=== PATIENT | female | born 1960 | race Caucasian/White ===

== ENCOUNTER 2016-04-29 21:01 | Emergency (ER) | payer MEDICARE, MEDICAID ==
--- NOTE | 2016-04-29 21:48 | ER Document Report ---
ED Medical Screen (RME) - General Stated Complaint: DIFFICULTY BREATHING/CONFUSED Mode of Arrival: Ambulatory Information source: Patient Notes: 55 y/o F presents to ED c/o worsening sob with associated dizzines, nausea, generalized wekness, and intermittent confusion over the last 2 days. I have greeted and performed a rapid initial assessment of this patient. A comprehensive ED assessment and evaluation of the patient, analysis of test results and completion of the medical decision making process will be conducted by additional ED providers. TRAVEL OUTSIDE OF THE [place] IN LAST 30 DAYS: No - Related Data Allergies/Adverse Reactions: morphine Allergy (Severe, Verified 04/29/16 21:28) Hallucinations clindamycin [Clindamycin] Allergy (Verified 04/29/16 21:28) Past Medical History - Social History Frequency of alcohol use: None Drug Abuse: None - Past Medical History Cardiac Medical History: Reports: Hx Heart Attack, Hx Hypercholesterolemia Pulmonary Medical History: Reports: Hx Asthma, Hx COPD, Hx Sleep Apnea Denies: Hx Tuberculosis Neurological Medical History: Denies: Hx Seizures Endocrine Medical History: Reports: Hx Diabetes Mellitus Type 2 Renal/ Medical History: Denies: Hx Peritoneal Dialysis Musculoskeltal Medical History: Reports Hx Arthritis, Reports Hx Fibromyalgia, Reports Hx Musculoskeletal Deformity, Reports Hx Musculoskeletal Trauma Psychiatric Medical History: Reports: Hx Anxiety, Hx Bipolar Disorder, Hx Depression Past Surgical History: Reports: Hx Orthopedic Surgery - shoulder replacement, BL., Hx Tubal Ligation. Denies: Hx Hysterectomy, Hx Pacemaker - Immunizations Immunizations up to date: Yes Hx Diphtheria, Pertussis, Tetanus Vaccination: Yes Physical Exam - Vital signs Vitals: Temp Pulse Resp BP 98.0 F 73 20 114/62 04/29/16 21:25 04/29/16 21:25 04/29/16 21:25 04/29/16 21:25 - General General appearance: Alert In distress: None - Respiratory Respiratory status: No respiratory distress Breath sounds: Normal Course - Vital Signs Vital signs: Temp Pulse Resp BP Pulse Ox 98.0 F 73 20 114/62 04/29/16 21:25 04/29/16 21:25 04/29/16 21:25 04/29/16 21:25
[2016-04-29 23:30] LABS: ABSOLUTE BASOPHILS # (AUTO) 0.1 10^3/uL (0.0-0.2); ABSOLUTE EOSINOPHILS # (AUTO) 0.4 10^3/uL (0.0-0.6); ABSOLUTE LYMPHOCYTES (AUTO) 1.9 10^3/uL (0.5-4.7); ABSOLUTE MONOCYTES (AUTO) 0.3 10^3/uL (0.1-1.4); BASOPHILS % (AUTO) 1.6 % (0-2); EOSINOPHILS % (AUTO) 8.8 % (0-6); HEMOGLOBIN 10.3 g/dL (12.0-15.5); HGB HCT DIFFERENCE -0.1; LYMPHOCYTES % (AUTO) 40.4 % (13-45); MEAN CORPUSCULAR HEMOGLOBIN 31.2 pg (27.0-33.4); MEAN CORPUSCULAR HGB CONC 33.2 g/dL (32.0-36.0); MEAN CORPUSCULAR VOLUME 94 fl (80-97); RED BLOOD COUNT 3.31 10^6/uL (3.72-5.28); SEGMENTED NEUTROPHILS % (AUTO) 42.2 % (42-78); WHITE BLOOD COUNT 4.7 10^3/uL (4.0-10.5)
[2016-04-29 23:49] LABS: ALANINE AMINOTRANSFERASE 24 U/L (9-52); ALBUMIN 4.4 g/dL (3.5-5.0); ALKALINE PHOSPHATASE 97 U/L (38-126); ANION GAP 8 (5-19); ASPARTATE AMINO TRANSFERASE 24 U/L (14-36); BILIRUBIN,TOTAL 0.5 mg/dL (0.2-1.3); BLOOD UREA NITROGEN 27 mg/dL (7-20); CALCIUM 9.9 mg/dL (8.4-10.2); CARBON DIOXIDE 36 mmol/L (22-30); CHLORIDE 98 mmol/L (98-107); CREATININE RESULT 1.07 mg/dL (0.52-1.25); GLUCOSE 91 mg/dL (75-110); POTASSIUM 4.9 mmol/L (3.6-5.0); SODIUM 141.9 mmol/L (137-145); TOTAL PROTEIN 7.7 g/dL (6.3-8.2)
[2016-04-29 23:51] LABS: APPEARANCE,URINE CLEAR; BILIRUBIN,URINE NEGATIVE (NEGATIVE); GLUCOSE, URINE NEGATIVE (NEGATIVE); KETONES,URINE NEGATIVE (NEGATIVE); LEUKOCYTE ESTERASE,URINE TRACE (NEGATIVE); NITRITE,URINE NEGATIVE (NEGATIVE); PROTEIN,URINE NEGATIVE (NEGATIVE); URINE SPECIFIC GRAVITY 1.031; UROBILINOGEN,URINE NEGATIVE mg/dL (<2.0)
--- NOTE | 2016-04-30 00:12 | EKG REPORT ---
SEVERITY:- NORMAL ECG - SINUS RHYTHM : Confirmed by: Sabiha Rene 30-Apr-2016 00:11:43
--- NOTE | 2016-04-30 02:50 | ER Document Report ---
ED Respiratory Problem - General Chief Complaint: Breathing Difficulty Stated Complaint: DIFFICULTY BREATHING/CONFUSED Time seen by provider: 02:35 Mode of Arrival: Ambulatory Information source: Patient Notes: 55-year-old female presents to ED for difficulty breathing shortness of breath and confusion. She states she's had worsening shortness of breath for the last 4 days and she has an appointment with the lung doctor today at 3 PM but states she cannot wait that long she also has a history of dizziness nausea and weakness with intermittent confusion. She has a appointment with her primary doctor tomorrow at 2:30 she states none of these symptoms are new but she just couldn't wait to get seen by the doctor. TRAVEL OUTSIDE OF THE [place] IN LAST 30 DAYS: No - HPI Patient complains to provider of: COPD, Cough Onset: Other - Patient states these symptoms have been progressive for the last for several weeks worse for the last 4 days. Duration: Continuous Quality of pain: Achy, Throbbing, Other - Chronic pain fibromyalgia on fentanyl and Percocet Severity: Moderate Pain Level: 4 Context: Hx COPD, Other Short of Breath: Mild Cough: Nonproductive Sputum amount: None Associated symptoms: Cough, Other - Dizziness nausea and generalized weakness and intermittent confusion Similar symptoms previously: Yes Recently seen / treated by doctor: Yes - Related Data Allergies/Adverse Reactions: morphine Allergy (Severe, Verified 04/29/16 21:28) Hallucinations clindamycin [Clindamycin] Allergy (Verified 04/29/16 21:28) Past Medical History - General Information source: Patient - Social History Smoking Status: Former Smoker Cigarette use (# per day): No Chew tobacco use (# tins/day): No Smoking Education Provided: No Frequency of alcohol use: None Drug Abuse: None Lives with: Family Family History: Reviewed & Not Pertinent Patient has suicidal ideation: No Patient has homicidal ideation: No - Past Medical History Cardiac Medical History: Reports: Hx Heart Attack, Hx Hypercholesterolemia Pulmonary Medical History: Reports: Hx Asthma, Hx COPD, Hx Sleep Apnea, Other - History of broken ribs in 1990 Endocrine Medical History: Reports: Hx Diabetes Mellitus Type 2 Renal/ Medical History: Reports: None Malignancy Medical History: Reports: None Musculoskeltal Medical History: Reports Hx Arthritis, Reports Hx Fibromyalgia, Reports Hx Musculoskeletal Deformity, Reports Hx Musculoskeletal Trauma Skin Medical History: Reports None Psychiatric Medical History: Reports: Hx Anxiety, Hx Bipolar Disorder, Hx Depression Traumatic Medical History: Reports: None Infectious Medical History: Reports: None Past Surgical History: Reports: Hx Orthopedic Surgery - shoulder bilateral, Hx Tubal Ligation, Other - Vagal nerve stimulator - Immunizations Immunizations up to date: Yes Hx Diphtheria, Pertussis, Tetanus Vaccination: Yes Review of Systems - Review of Systems Constitutional: No symptoms reported Cardiovascular: Dizziness Respiratory: Cough Gastrointestinal: Nausea Genitourinary: No symptoms reported Female Genitourinary: No symptoms reported Musculoskeletal: Back pain, Muscle pain Skin: No symptoms reported Hematologic/Lymphatic: No symptoms reported Neurological/Psychological: Confusion - States intermittent confusion, Weakness Physical Exam - Vital signs Vitals: Temp Pulse Resp BP Pulse Ox 98.0 F 73 20 114/62 98 04/29/16 21:25 04/29/16 21:25 04/29/16 21:25 04/29/16 21:25 04/29/16 21:25 Interpretation: Normal - General General appearance: Appears well, Alert - HEENT Head: Normocephalic, Atraumatic Eyes: Normal Pupils: PERRL - Respiratory Respiratory status: No respiratory distress Chest status: Nontender Breath sounds: Normal Chest palpation: Normal - Cardiovascular Rhythm: Regular Heart sounds: Normal auscultation Murmur: No - Abdominal Inspection: Normal Distension: No distension Bowel sounds: Normal Tenderness: Nontender Organomegaly: No organomegaly - Back Back: Normal, Nontender - Extremities General upper extremity: Normal inspection, Nontender, Normal color, Normal ROM , Normal temperature General lower extremity: Normal inspection, Nontender, Normal color, Normal ROM , Normal temperature, Normal weight bearing. No: Marychuy's sign - Neurological Neuro grossly intact: Yes Cognition: Normal Orientation: AAOx4 [place] Coma Scale Eye Opening: Spontaneous [place] Coma Scale Verbal: Oriented [place] Coma Scale Motor: Obeys Commands [place] Coma Scale Total: 15 Speech: Normal Motor strength normal: LUE, RUE, LLE, RLE Sensory: Normal - Psychological Associated symptoms: Normal affect, Normal mood - Skin Skin Temperature: Warm Skin Moisture: Dry Skin Color: Normal Course - Re-evaluation Re-evalutation: 04/30/16 07:43 Labs x-ray and EKG discussed with patient and family patient has been stable O2 sat of 96-97 on 2 L during her stay here patient is a COPD patient who states she is on 4 L at home. Patient states she has a follow-up appointment with her lung doctor today and her primary doctor tomorrow. - Vital Signs Vital signs: Temp Pulse Resp BP Pulse Ox 98.5 F 73 18 117/49 L 97 04/30/16 05:55 04/29/16 21:25 04/30/16 05:50 04/30/16 05:50 04/30/16 05:50 - Laboratory Result Diagrams: 04/29/16 23:02 04/29/16 23:02 Laboratory results interpreted by me: 04/29/16 04/29/16 04/29/16 23:02 23:02 23:02 RBC 3.31 L Hgb 10.3 L Hct 31.0 L Eosinophils % 8.8 H Carbon Dioxide 36 H BUN 27 H Est GFR (Non-Af Amer) 54 L Ur Leukocyte Esterase TRACE H - Diagnostic Test Radiology reviewed: Image reviewed, Reports reviewed Discharge - Discharge Clinical Impression: Dizziness, Nausea Upper respiratory infection Qualifiers: URI type: unspecified URI Qualified Code(s): J06.9 - Acute upper respiratory infection, unspecified Chronic pain Qualifiers: Chronic pain type: other chronic pain Qualified Code(s): G89.29 - Other chronic pain Condition: Stable Disposition: HOME, SELF-CARE Additional Instructions: UPPER RESPIRATORY ILLNESS: You have a viral infection of the respiratory passages -- a "cold." This common infection causes nasal congestion, drainage, and often sore throat and cough. It is highly contagious. The disease usually lasts about 10 to 14 days. There is no "cure" for the viral infection -- it must run its course. If there is a complication, such as bacterial infection in the nose, sinuses, middle ear, or bronchial tubes, antibiotics may be required. The antibiotics won't affect the virus. Drink plenty of fluids. A humidifier may help. An expectorant medication or decongestant may make you more comfortable. Use acetaminophen or ibuprofen for fever or aches. See the doctor if fever persists over two days, if there is any significant worsening of your symptoms, or if you simply fail to improve as expected. Weakness We did not find a definite cause for your weakness. This may require further medical tests. Weakness can be caused by infection, physical exhaustion , rapid weight loss, dehydration, or medicine side effects. Diseases of the muscles, heart, nerves, and blood vessels can make you weak. Sometimes the problem is simply depression or lack of exercise. You should get plenty of rest. Unless the doctor tells you otherwise, it's usually best to add short periods of regular mild exercise. Eat a nutritious diet with multiple small, low-sugar meals. If symptoms continue, additional medical evaluation will be necessary. Be sure to follow up as instructed. If you become very dizzy, nauseated, or feel like you're going to faint, lie down right away. Wait until the symptoms have passed before you get up again. Stand up slowly. Call the doctor or return if you develop chest pain, abdominal pain, severe headache, irregular heartbeat or very fast pulse, confusion, vision problems, fever, muscular pain, or any other new symptom. Nausea or Vomiting, Nonspecific Vomiting (or nausea without vomiting) can be caused by many different problems. Of course, it can mean that something's wrong with the stomach, such as "stomach flu," ulcers, or inflammation. But it can also be a symptom of a problem that has nothing to do with the stomach or intestines. Vomiting is common with severe headaches, earaches, and tonsillitis. We see it with pneumonia or heart attacks. Drugs can cause nausea. Many abdominal problems cause vomiting; for example, gallstones, kidney stones, pancreatitis, and intestinal obstruction (blocked bowels). In most cases, curing the vomiting depends on fixing the problem that caused it. For temporary relief, we may use an anti-nausea medicine. For home use, we can prescribe suppositories, chewable pills, pills that dissolve in the mouth, or liquid anti-nausea drugs. If the vomiting seems to be caused by a problem in the stomach, acid-suppressing drugs may be prescribed as well. It's important to avoid dehydration. Sip clear liquids. Take increasing amounts of fluid over the first 24 hours. Then start small amounts of bland foods (such as dry toast, applesauce, mashed potato). Avoid aspirin, tobacco, and alcohol. Gradually resume your usual diet. If the vomiting worsens, if the problem that's making you vomit worsens, or if there's evidence of bleeding in the stomach (such as black, tarry stool, bloody or black vomit, or lightheadedness), you should return immediately. Call your doctor if you aren't improved in 24 to 36 hours. COUGH-SUPPRESSANT & EXPECTORANT MEDICATION: You are to use a cough medication as needed for relief of symptoms. This medicine is a combination of an expectorant (to make the mucous thinner and more easily "coughed up") and a cough suppressant (to reduce the frequency of coughing). The cough-suppressant medicine is related to narcotics. You may experience mild nausea and sleepiness. Some patients who are very sensitive to narcotics may have stomach pain from this medicine. Taking the medicine with food reduces these side effects. Do not drive or work with machinery until you know how this medicine affects you. The expectorant should have no side effects. Iodine-containing expectorants (such as organidin) should not be taken by persons with active thyroid disease unless approved by your doctor. Call the doctor if you develop shortness of breath, hives, rash, itching, lightheadedness, or severe nausea and vomiting. USE OF ACETAMINOPHEN (Tylenol): Acetaminophen may be taken for pain relief or fever control. It's much safer than aspirin, offering a wider range of "safe" dosages. It is safe during . Some brand names are Tylenol, Panadol, Datril, Anacin 3, Tempra, and Liquiprin. Acetaminophen can be repeated every four hours. The following are maximum recommended dosages: >89 pounds or adults 650 mg to 900 mg Acetaminophen can be repeated every four hours. Maximum dose not to exceed 4000 mg a day. FOLLOW-UP CARE: If you have been referred to a physician for follow-up care, call the physician s office for an appointment as you were instructed or within the next two days. If you experience worsening or a significant change in your symptoms, notify the physician immediately or return to the Emergency Department at any time for re-evaluation. Prescriptions: Ondansetron [Zofran Odt 4 mg Tablet] 1 tab PO Q6H #15 tab.rapdis Referrals: LUTHER GRAHAM MD [Primary Care Provider] - Follow up as needed
[2016-04-30 03:34] LABS: CREATINE KINASE MB 2.06 ng/mL (<4.55)
[2016-04-30 03:51] LABS: TROPONIN I < 0.012 ng/mL
[2016-04-30 05:55] VITALS: BP 117/49
== END 2016-04-30 05:56 | disposition home or self-care (01) ==
LOC: ER 21:01
DX: J06.9 Acute upper respiratory infection, unspecified (principal); R42 Dizziness and giddiness; R11.0 Nausea; G89.29 Other chronic pain; R06.02 Shortness of breath; R41.82 Altered mental status, unspecified; Z87.891 Personal history of nicotine dependence
CPT/HCPCS: 36415; 71020; 80053; 81001; 82550; 82553; 83880; 84484; 85025; 93005; 93010; 99284

== ENCOUNTER 2016-05-06 21:01 | Emergency (ER) | payer MEDICARE, MEDICAID ==
--- NOTE | 2016-05-06 21:20 | ER Document Report ---
ED Medical Screen (RME) - General Chief Complaint: Shortness Of Breath Stated Complaint: DIARRHEA,LOWER BACK PAIN,LEG PAIN Time seen by provider: 21:20 Mode of Arrival: Wheelchair Information source: Patient TRAVEL OUTSIDE OF THE [place] IN LAST 30 DAYS: No - HPI Patient complains to provider of: generalized weakness, diarrhea, chest pressure , shortness of breath Onset: Other - 4-5 days Onset/Duration: Persistent Quality of pain: Achy, Cramping Severity: Moderate Pain Level: 3 - Related Data Allergies/Adverse Reactions: morphine Allergy (Severe, Verified 05/06/16 21:17) Hallucinations clindamycin [Clindamycin] Allergy (Verified 05/06/16 21:17) Past Medical History - Social History Chew tobacco use (# tins/day): No Frequency of alcohol use: None Drug Abuse: None - Past Medical History Cardiac Medical History: Reports: Hx Heart Attack, Hx Hypercholesterolemia Pulmonary Medical History: Reports: Hx Asthma, Hx COPD, Hx Sleep Apnea Denies: Hx Tuberculosis Neurological Medical History: Denies: Hx Seizures Endocrine Medical History: Reports: Hx Diabetes Mellitus Type 2 Renal/ Medical History: Denies: Hx Peritoneal Dialysis Musculoskeltal Medical History: Reports Hx Arthritis, Reports Hx Fibromyalgia, Reports Hx Musculoskeletal Deformity, Reports Hx Musculoskeletal Trauma Psychiatric Medical History: Reports: Hx Anxiety, Hx Bipolar Disorder, Hx Depression Past Surgical History: Reports: Hx Orthopedic Surgery - shoulder bilateral, Hx Tubal Ligation, Other - Vagal nerve stimulator. Denies: Hx Hysterectomy, Hx Pacemaker - Immunizations Immunizations up to date: Yes Hx Diphtheria, Pertussis, Tetanus Vaccination: Yes
[2016-05-06] MEDS ORDERED: OXYCODONE-ACETAMINOPHEN 5-325 MG TABLET PO ONE (22:24)
--- NOTE | 2016-05-06 22:27 | ER Document Report ---
ED General - General Chief Complaint: Shortness Of Breath Stated Complaint: DIARRHEA,LOWER BACK PAIN,LEG PAIN Mode of Arrival: Wheelchair Notes: Patient is a 55-year-old female that comes emergency department with multiple complaints, her chief complaint is that she is having frequent diarrhea, nonbloody, she states she has had this for about 4 days now. Patient states that 10 days ago she was released from [facility] where she had received multiple antibiotics for a lung infection. Patient denies history of C. difficile, denies fever, denies vomiting. She also complains of pain in her hip and irritation in her ears. She denies any particular shortness of breath, she is on 4 L nasal cannula at all times, past medical history of CAD, type II diabetes , tobacco abuse, fibromyalgia, bipolar. TRAVEL OUTSIDE OF THE [place] IN LAST 30 DAYS: No - Related Data Allergies/Adverse Reactions: morphine Allergy (Severe, Verified 05/06/16 21:17) Hallucinations clindamycin [Clindamycin] Allergy (Verified 05/06/16 21:17) Past Medical History - General Information source: Patient - Social History Smoking Status: Former Smoker Chew tobacco use (# tins/day): No Frequency of alcohol use: None Drug Abuse: None Family History: Reviewed & Not Pertinent Patient has suicidal ideation: No Patient has homicidal ideation: No - Past Medical History Cardiac Medical History: Reports: Hx Heart Attack, Hx Hypercholesterolemia Pulmonary Medical History: Reports: Hx Asthma, Hx COPD, Hx Sleep Apnea Denies: Hx Tuberculosis Neurological Medical History: Denies: Hx Seizures Endocrine Medical History: Reports: Hx Diabetes Mellitus Type 2 Renal/ Medical History: Denies: Hx Peritoneal Dialysis Musculoskeltal Medical History: Reports Hx Arthritis, Reports Hx Fibromyalgia, Reports Hx Musculoskeletal Deformity, Reports Hx Musculoskeletal Trauma Psychiatric Medical History: Reports: Hx Anxiety, Hx Bipolar Disorder, Hx Depression Past Surgical History: Reports: Hx Orthopedic Surgery - shoulder bilateral, Hx Tubal Ligation, Other - Vagal nerve stimulator. Denies: Hx Hysterectomy, Hx Pacemaker - Immunizations Immunizations up to date: Yes Hx Diphtheria, Pertussis, Tetanus Vaccination: Yes Review of Systems - Review of Systems Constitutional: No symptoms reported EENT: No symptoms reported Cardiovascular: No symptoms reported Respiratory: No symptoms reported Gastrointestinal: See HPI Genitourinary: No symptoms reported Female Genitourinary: No symptoms reported Musculoskeletal: No symptoms reported Skin: No symptoms reported Hematologic/Lymphatic: No symptoms reported Neurological/Psychological: No symptoms reported Physical Exam - Vital signs Vitals: Resp Pulse Ox 11 L 95 05/07/16 00:26 05/07/16 00:26 Interpretation: Normal - General General appearance: Appears well, Alert - HEENT Head: Normocephalic, Atraumatic Eyes: Normal Conjunctiva: Normal Extraocular movements intact: Yes Eyelashes: Normal Pupils: PERRL Sinus: Normal Nasal: Normal Mouth/Lips: Normal Mucous membranes: Normal Pharynx: Normal Neck: Normal - Respiratory Respiratory status: No respiratory distress. No: Labored, Tachypnea Chest status: Nontender Breath sounds: Decreased air movement. No: Rales, Rhonchi, Wheezing Chest palpation: Normal - Cardiovascular Rhythm: Regular. No: Tachycardia Heart sounds: Normal auscultation, S1 appreciated, S2 appreciated Murmur: No - Abdominal Inspection: Normal Distension: No distension Bowel sounds: Normal Tenderness: Nontender. No: Tender - Soft and nontender, Guarding Organomegaly: No organomegaly - Back Back: Normal, Nontender. No: Tender - Extremities General upper extremity: Normal inspection, Nontender, Normal color, Normal ROM , Normal temperature General lower extremity: Normal inspection, Nontender, Normal color, Normal ROM , Normal temperature, Normal weight bearing. No: Marychuy's sign - Neurological Neuro grossly intact: Yes Cognition: Normal Orientation: AAOx4 [place] Coma Scale Eye Opening: Spontaneous [place] Coma Scale Verbal: Oriented [place] Coma Scale Motor: Obeys Commands [place] Coma Scale Total: 15 Speech: Normal Motor strength normal: LUE, RUE, LLE, RLE Sensory: Normal - Psychological Associated symptoms: Normal affect, Normal mood - Skin Skin Temperature: Warm Skin Moisture: Dry Skin Color: Normal Course - Re-evaluation Re-evalutation: Patient ambulates around the room and to the bathroom without any difficulty. Mild normocytic anemia, CBC otherwise unremarkable, chemistry, stool, urine, x- ray and abdominal imaging all unremarkable despite patient's complaints. Borderline hypotension, no tachycardia. Patient did have a couple of episodes of diarrhea in the emergency department. Patient has recently been on antibiotics, however C. difficile is negative, recommended patient to be on probiotics, follow-up with her primary care, discussed return precautions, patient and family members state understanding and agreement. - Vital Signs Vital signs: Temp Pulse Resp BP Pulse Ox 18 101/67 98 02/28/17 02:11 05/07/16 02:24 05/07/16 02:11 - Laboratory Result Diagrams: 05/06/16 23:30 05/06/16 23:30 Laboratory results interpreted by me: 05/06/16 05/06/16 23:30 23:30 RBC 3.21 L Hgb 10.0 L Hct 29.8 L Eosinophils % 7.6 H Chloride 95 L Carbon Dioxide 39 H Creatine Kinase 178 H Discharge - Discharge Clinical Impression: Abdominal pain Qualifiers: Abdominal location: generalized Qualified Code(s): R10.84 - Generalized abdominal pain Diarrhea Qualifiers: Diarrhea type: unspecified type Qualified Code(s): R19.7 - Diarrhea, unspecified Condition: Stable Disposition: HOME, SELF-CARE Additional Instructions: Blood work, imaging, and stool tests do not show C. difficile or any other concerning abnormalities. Continue probiotic for diarrhea, diarrhea is most likely from malabsorption, avoid dairy products, drink plenty of fluids to stay hydrated. Follow-up with your primary care provider. Return to emergency department for any concerning symptoms. Referrals: LUTHER GRAHAM MD [Primary Care Provider] - Follow up as needed
[2016-05-06 23:52] LABS: ABSOLUTE BASOPHILS # (AUTO) 0.1 10^3/uL (0.0-0.2); ABSOLUTE EOSINOPHILS # (AUTO) 0.4 10^3/uL (0.0-0.6); ABSOLUTE LYMPHOCYTES (AUTO) 1.7 10^3/uL (0.5-4.7); ABSOLUTE MONOCYTES (AUTO) 0.4 10^3/uL (0.1-1.4); ABSOLUTE NEUT (AUTO) 2.7 10^3/uL (1.7-8.2); BASOPHILS % (AUTO) 1.2 % (0-2); EOSINOPHILS % (AUTO) 7.6 % (0-6); HEMATOCRIT 29.8 % (36.0-47.0); HGB HCT DIFFERENCE 0.2; LYMPHOCYTES % (AUTO) 32.1 % (13-45); MEAN CORPUSCULAR HEMOGLOBIN 31.1 pg (27.0-33.4); MEAN CORPUSCULAR HGB CONC 33.6 g/dL (32.0-36.0); MEAN CORPUSCULAR VOLUME 93 fl (80-97); RED BLOOD COUNT 3.21 10^6/uL (3.72-5.28); RED CELL DISTRIBUTION WIDTH 13.7 % (11.5-14.0); SEGMENTED NEUTROPHILS % (AUTO) 51.1 % (42-78); WHITE BLOOD COUNT 5.3 10^3/uL (4.0-10.5)
[2016-05-06 23:59] LABS: ALANINE AMINOTRANSFERASE 22 U/L (9-52); ALKALINE PHOSPHATASE 84 U/L (38-126); ANION GAP 8 (5-19); ASPARTATE AMINO TRANSFERASE 36 U/L (14-36); BILIRUBIN,TOTAL 0.5 mg/dL (0.2-1.3); BLOOD UREA NITROGEN 19 mg/dL (7-20); CALCIUM 9.6 mg/dL (8.4-10.2); CARBON DIOXIDE 39 mmol/L (22-30); CHLORIDE 95 mmol/L (98-107); CREATINE KINASE 178 U/L (30-135); CREATININE RESULT 0.92 mg/dL (0.52-1.25); GLUCOSE 88 mg/dL (75-110); SODIUM 141.8 mmol/L (137-145)
[2016-05-07 00:11] LABS: CREATINE KINASE MB 3.27 ng/mL (<4.55)
[2016-05-07 00:14] LABS: TROPONIN I < 0.012 ng/mL
[2016-05-07 00:38] LABS: APPEARANCE,URINE CLEAR; BILIRUBIN,URINE NEGATIVE (NEGATIVE); GLUCOSE, URINE NEGATIVE (NEGATIVE); KETONES,URINE NEGATIVE (NEGATIVE); LEUKOCYTE ESTERASE,URINE NEGATIVE (NEGATIVE); NITRITE,URINE NEGATIVE (NEGATIVE); PROTEIN,URINE NEGATIVE (NEGATIVE); URINE SPECIFIC GRAVITY 1.018; UROBILINOGEN,URINE NEGATIVE mg/dL (<2.0)
[2016-05-07 02:25] VITALS: BP 101/67
--- NOTE | 2016-05-07 07:57 | EKG REPORT ---
SEVERITY:- ABNORMAL ECG - SINUS RHYTHM OLD ANTEROSEPTAL NE. : Confirmed by: Elmre Perea MD 07-May-2016 07:56:19
== END 2016-05-07 02:24 | disposition home or self-care (01) ==
LOC: ER 21:01
DX: R10.84 Generalized abdominal pain (principal); R19.7 Diarrhea, unspecified; R06.02 Shortness of breath; M54.5 Low back pain; E11.9 Type 2 diabetes mellitus without complications; I25.10 Atherosclerotic heart disease of native coronary artery without angina pectoris; J44.9 Chronic obstructive pulmonary disease, unspecified; J45.909 Unspecified asthma, uncomplicated; Z99.81 Dependence on supplemental oxygen; Z87.891 Personal history of nicotine dependence; Z88.6 Allergy status to analgesic agent; Z88.3 Allergy status to other anti-infective agents; Z98.51 Tubal ligation status; I25.2 Old myocardial infarction
CPT/HCPCS: 93005; 99285; 36415; 87040; 87045; 87086; 89055; 87205; 82553; 82550; 85025; 82272; 87088; 80053; 81001; 84484; 87493 ×2; 87804; 83880; 74022; 93010; A9270; 87186

== ENCOUNTER 2016-05-12 19:17 | Emergency (ER) | payer MEDICARE, MEDICAID ==
--- NOTE | 2016-05-12 20:11 | ER Document Report ---
ED Medical Screen (RME) - General Stated Complaint: RIB PAIN Notes: Patient states she was seen last week for same symptoms, but states she is not getting any better. Complains of bilateral rib pain, has nonproductive cough. Patient states she has a history of COPD and emphysema. She states it's time for her next dose of pain medication and she has her "very bad. " Patient states she does not know whether she's had a fever or not because she takes Motrin all the time. I have greeted and performed a rapid initial assessment of this patient. A comprehensive ED assessment and evaluation of the patient, analysis of test results and completion of the medical decision making process will be conducted by additional ED providers. TRAVEL OUTSIDE OF THE [place] IN LAST 30 DAYS: No - Related Data Allergies/Adverse Reactions: morphine Allergy (Severe, Verified 05/06/16 21:17) Hallucinations clindamycin [Clindamycin] Allergy (Verified 05/06/16 21:17) Past Medical History - Past Medical History Cardiac Medical History: Reports: Hx Heart Attack, Hx Hypercholesterolemia Pulmonary Medical History: Reports: Hx Asthma, Hx COPD, Hx Sleep Apnea Denies: Hx Tuberculosis Neurological Medical History: Denies: Hx Seizures Endocrine Medical History: Reports: Hx Diabetes Mellitus Type 2 Renal/ Medical History: Denies: Hx Peritoneal Dialysis Musculoskeltal Medical History: Reports Hx Arthritis, Reports Hx Fibromyalgia, Reports Hx Musculoskeletal Deformity, Reports Hx Musculoskeletal Trauma Psychiatric Medical History: Reports: Hx Anxiety, Hx Bipolar Disorder, Hx Depression Past Surgical History: Reports: Hx Orthopedic Surgery - shoulder bilateral, Hx Tubal Ligation, Other - Vagal nerve stimulator. Denies: Hx Hysterectomy, Hx Pacemaker - Immunizations Immunizations up to date: Yes Hx Diphtheria, Pertussis, Tetanus Vaccination: Yes Physical Exam - Vital signs Vitals: Temp Pulse Resp BP Pulse Ox 98.1 F 88 12 136/100 H 95 05/12/16 19:29 05/12/16 19:29 05/12/16 19:29 05/12/16 19:05/12/16 19:29 - Respiratory Notes: Expiratory wheezing heard on auscultation. Course - Vital Signs Vital signs: Temp Pulse Resp BP Pulse Ox 98.1 F 88 12 136/100 H 95 05/12/16 19:29 05/12/16 19:29 05/12/16 19:29 05/12/16 19:29 05/12/16 19:29
--- NOTE | 2016-05-12 21:26 | ER Document Report ---
ED General - General Stated Complaint: RIB PAIN Information source: Patient Notes: Patient is a 55-year-old female who presents with bilateral rib pain, left greater than right, for around 3 weeks. Patient supposedly around 3 weeks ago according to the patient was diagnosed with a pneumonia and started on antibiotics at [facility]. Patient has a history as recorded and is on 4 L of nasal cannula's is baseline at home. Patient denies any fevers, vomiting, anterior chest pain, calf pain, or leg swelling. Patient is oriented 10 mg Percocet as well as fentanyl patch. TRAVEL OUTSIDE OF THE [place] IN LAST 30 DAYS: No - HPI Onset: Other - See above Onset/Duration: Sudden Quality of pain: Achy Severity: Mild Pain Level: 2 Associated symptoms: Other - See above Exacerbated by: Movement Relieved by: Denies Similar symptoms previously: No Recently seen / treated by doctor: Yes - Related Data Allergies/Adverse Reactions: morphine Allergy (Severe, Verified 05/06/16 21:17) Hallucinations clindamycin [Clindamycin] Allergy (Verified 05/06/16 21:17) Past Medical History - Social History Smoking Status: Unknown if Ever Smoked Cigarette use (# per day): No Chew tobacco use (# tins/day): No Smoking Education Provided: No Frequency of alcohol use: None Drug Abuse: None Family History: Reviewed & Not Pertinent - Past Medical History Cardiac Medical History: Reports: Hx Heart Attack, Hx Hypercholesterolemia Pulmonary Medical History: Reports: Hx Asthma, Hx COPD, Hx Sleep Apnea Denies: Hx Tuberculosis Neurological Medical History: Denies: Hx Seizures Endocrine Medical History: Reports: Hx Diabetes Mellitus Type 2 Renal/ Medical History: Denies: Hx Peritoneal Dialysis Musculoskeltal Medical History: Reports Hx Arthritis, Reports Hx Fibromyalgia, Reports Hx Musculoskeletal Deformity, Reports Hx Musculoskeletal Trauma Psychiatric Medical History: Reports: Hx Anxiety, Hx Bipolar Disorder, Hx Depression Past Surgical History: Reports: Hx Orthopedic Surgery - shoulder bilateral, Hx Tubal Ligation, Other - Vagal nerve stimulator. Denies: Hx Hysterectomy, Hx Pacemaker - Immunizations Immunizations up to date: Yes Hx Diphtheria, Pertussis, Tetanus Vaccination: Yes Review of Systems - Review of Systems Constitutional: denies: Fever EENT: denies: Eye discharge, Nose congestion, Nose discharge Cardiovascular: denies: Chest pain, Palpitations, Heart racing Respiratory: Cough. denies: Short of breath Gastrointestinal: denies: Abdominal pain, Vomiting Genitourinary: denies: Dysuria Musculoskeletal: denies: Leg swelling Skin: Other - no hives. denies: Rash Neurological/Psychological: Other - no slurred speech -: Yes All other systems reviewed and negative Physical Exam - Vital signs Vitals: Temp Pulse Resp BP Pulse Ox 98.1 F 88 12 136/100 H 95 05/12/16 19:29 05/12/16 19:29 05/12/16 19:29 05/12/16 19:29 05/12/16 19:29 Notes: Reviewed vital signs and nursing note as charted by RN. CONSTITUTIONAL: Alert and oriented and responds appropriately to questions. Well -appearing; well-nourished HEAD: Normocephalic; atraumatic EYES: PERRL ENT: Normal nose; no rhinorrhea; moist mucous membranes; pharynx without lesions noted NECK: Supple without meningismus; non-tender CARD: Regular rate and rhythm; no murmurs, no clicks, no rubs, no gallops; symmetric distal pulses RESP: Normal chest excursion without splinting or tachypnea; breath sounds clear and equal bilaterally; no wheezes, no rhonchi, no rales ABD/GI: Normal bowel sounds; non-distended; soft, non-tender BACK: The back appears normal and is non-tender to palpation, there is no CVA tenderness EXT: Normal ROM in all joints; non-tender to palpation; no cyanosis, no effusions, no edema SKIN: Normal color for age and race; warm; dry; good turgor; capillary refill < 2 seconds; no acute lesions noted NEURO: Moves all extremities equally; Motor and sensory function intact PSYCH: The patient's mood and manner are appropriate. Grooming and personal hygiene are appropriate. Course - Re-evaluation Re-evalutation: 05/12/16 21:06 Given the history and physical examination and x-ray of the chest has been performed. I've an extremely low pretest probability for ACS, PE, or aortic dissection. 05/12/16 21:27 X-ray of the chest shows no infiltrates or acute displaced fractures. I do not believe having more pain medications to the Percocet and fentanyl patch would be dacosta at this time. Patient will be discharged home with strict return precautions and follow-up with her primary care physician who she states she has easy access to. 05/12/16 22:12 X-ray of the chest shows no acute abnormality. I've discussed with the patient obtaining laboratory work and EKG to evaluate for her heart since she seems dissatisfied with her initial impression an x-ray report. I have told her that I'm happy to obtain these laboratory values but that I'm quite certain that she does not have a pneumonia or an obviously displaced rib fracture. The patient has refused the laboratory values and EKG. She is very polite and her refusal. I have welcomed her to return at any time that she would like for further evaluation and she promises to follow-up with her primary care physician. - Vital Signs Vital signs: Temp Pulse Resp BP Pulse Ox 98.1 F 88 12 136/100 H 95 05/12/16 19:29 05/12/16 19:29 05/12/16 19:29 05/12/16 19:29 05/12/16 19:29 Discharge - Discharge Clinical Impression: Cough, Chest wall pain Condition: Good Disposition: HOME, SELF-CARE Additional Instructions: Come back immediately with any increased pain, fevers, calf pain or leg swelling , vomiting, or any other acute problems. Please follow-up with your primary doctor as we have discussed. Referrals: LUTHER GRAHAM MD [Primary Care Provider] - Follow up as needed
[2016-05-12] MEDS ORDERED: ACETAMINOPHEN 325 MG TABLET PO ONE (22:14)
[2016-05-12 23:05] VITALS: BP 139/68
== END 2016-05-12 22:22 | disposition home or self-care (01) ==
LOC: ER 19:17
DX: R07.89 Other chest pain (principal); R05 Cough; J44.9 Chronic obstructive pulmonary disease, unspecified; J45.909 Unspecified asthma, uncomplicated; I25.2 Old myocardial infarction; E11.9 Type 2 diabetes mellitus without complications; Z87.01 Personal history of pneumonia (recurrent); Z99.81 Dependence on supplemental oxygen; Z88.5 Allergy status to narcotic agent; Z88.1 Allergy status to other antibiotic agents
CPT/HCPCS: 99283; 71020; A9270

== ENCOUNTER 2016-05-22 18:51 | Emergency (ER) | payer MEDICARE, MEDICAID ==
[2016-05-22 19:43] VITALS: BP 105/51
--- NOTE | 2016-05-22 19:46 | ER Document Report ---
ED Medical Screen (RME) - General Stated Complaint: LEFT SIDE PAIN Time seen by provider: 19:43 Mode of Arrival: Wheelchair Information source: Patient Notes: 55-year-old female presents to ED for left lateral chest pain for 2-3 week. She 's been on oxygen for 10 years or more for COPD. patient states she has a cough that sometimes she has green sputum and sometimes is dry. Patient states she thinks she's had fevers but she has Tylenol in her Percocet. I have greeted and performed a rapid initial assessment of this patient. A comprehensive ED assessment and evaluation of the patient, analysis of test results and completion of medical decision making process will be conducted by an additional ED providers. TRAVEL OUTSIDE OF THE [place] IN LAST 30 DAYS: No - Related Data Allergies/Adverse Reactions: morphine Allergy (Severe, Verified 05/06/16 21:17) Hallucinations clindamycin [Clindamycin] Allergy (Verified 05/06/16 21:17) Past Medical History - Past Medical History Cardiac Medical History: Reports: Hx Heart Attack, Hx Hypercholesterolemia Pulmonary Medical History: Reports: Hx Asthma, Hx COPD, Hx Sleep Apnea Denies: Hx Tuberculosis Neurological Medical History: Denies: Hx Seizures Endocrine Medical History: Reports: Hx Diabetes Mellitus Type 2 Renal/ Medical History: Denies: Hx Peritoneal Dialysis Musculoskeltal Medical History: Reports Hx Arthritis, Reports Hx Fibromyalgia, Reports Hx Musculoskeletal Deformity, Reports Hx Musculoskeletal Trauma Psychiatric Medical History: Reports: Hx Anxiety, Hx Bipolar Disorder, Hx Depression Past Surgical History: Reports: Hx Orthopedic Surgery - shoulder bilateral, Hx Tubal Ligation, Other - Vagal nerve stimulator. Denies: Hx Hysterectomy, Hx Pacemaker - Immunizations Immunizations up to date: Yes Hx Diphtheria, Pertussis, Tetanus Vaccination: Yes Physical Exam - Vital signs Vitals: Temp Pulse Resp BP Pulse Ox 98.1 F 82 16 105/51 L 98 05/22/16 19:33 05/22/16 19:33 05/22/16 19:33 05/22/16 19:33 05/22/16 19:33 Course - Vital Signs Vital signs: Temp Pulse Resp BP Pulse Ox 98.1 F 82 16 105/51 L 98 05/22/16 19:33 05/22/16 19:33 05/22/16 19:33 05/22/16 19:33 05/22/16 19:33
[2016-05-22 20:36] LABS: ABSOLUTE BASOPHILS # (AUTO) 0.1 10^3/uL (0.0-0.2); ABSOLUTE EOSINOPHILS # (AUTO) 0.4 10^3/uL (0.0-0.6); ABSOLUTE LYMPHOCYTES (AUTO) 1.9 10^3/uL (0.5-4.7); ABSOLUTE MONOCYTES (AUTO) 0.4 10^3/uL (0.1-1.4); ABSOLUTE NEUT (AUTO) 6.5 10^3/uL (1.7-8.2); BASOPHILS % (AUTO) 0.8 % (0-2); EOSINOPHILS % (AUTO) 4.3 % (0-6); HEMATOCRIT 34.3 % (36.0-47.0); HEMOGLOBIN 11.3 g/dL (12.0-15.5); HGB HCT DIFFERENCE -0.4; LYMPHOCYTES % (AUTO) 20.3 % (13-45); MEAN CORPUSCULAR HEMOGLOBIN 30.3 pg (27.0-33.4); MEAN CORPUSCULAR HGB CONC 33.1 g/dL (32.0-36.0); MEAN CORPUSCULAR VOLUME 92 fl (80-97); MONOCYTES % (AUTO) 4.3 % (3-13); RED BLOOD COUNT 3.74 10^6/uL (3.72-5.28); SEGMENTED NEUTROPHILS % (AUTO) 70.3 % (42-78); WHITE BLOOD COUNT 9.2 10^3/uL (4.0-10.5)
[2016-05-22 20:53] LABS: ALANINE AMINOTRANSFERASE 34 U/L (9-52); ALKALINE PHOSPHATASE 82 U/L (38-126); ANION GAP 8 (5-19); ASPARTATE AMINO TRANSFERASE 21 U/L (14-36); BILIRUBIN,TOTAL 0.4 mg/dL (0.2-1.3); BLOOD UREA NITROGEN 24 mg/dL (7-20); CALCIUM 10.5 mg/dL (8.4-10.2); CARBON DIOXIDE 36 mmol/L (22-30); CHLORIDE 94 mmol/L (98-107); CREATINE KINASE 33 U/L (30-135); CREATININE RESULT 0.76 mg/dL (0.52-1.25); GLUCOSE 103 mg/dL (75-110); POTASSIUM 4.1 mmol/L (3.6-5.0); SODIUM 137.7 mmol/L (137-145); TOTAL PROTEIN 6.9 g/dL (6.3-8.2)
[2016-05-22] MEDS ORDERED: ACETAMINOPHEN 325 MG TABLET PO ONE (21:35)
[2016-05-22 21:37] LABS: APPEARANCE,URINE CLEAR; BILIRUBIN,URINE NEGATIVE (NEGATIVE); GLUCOSE, URINE NEGATIVE (NEGATIVE); KETONES,URINE NEGATIVE (NEGATIVE); LEUKOCYTE ESTERASE,URINE TRACE (NEGATIVE); NITRITE,URINE NEGATIVE (NEGATIVE); PROTEIN,URINE NEGATIVE (NEGATIVE); URINE SPECIFIC GRAVITY 1.028; UROBILINOGEN,URINE NEGATIVE mg/dL (<2.0)
[2016-05-23] MEDS ORDERED: OXYCODONE HCL IR 5 MG TABLET PO ONE (00:41)
[2016-05-23] MEDS ORDERED: IPRATROPIUM/ALBUTEROL 0.5-2.5 MG/3 ML AMPUL NEB ONE (00:42)
--- NOTE | 2016-05-23 00:45 | ER Document Report ---
ED General - General Chief Complaint: Chest Wall Pain Stated Complaint: LEFT SIDE PAIN Mode of Arrival: Wheelchair Notes: Patient is a 55-year-old female with past medical history of chronic opiate dependence for chronic pain in her back and neck, COPD, active smoker, who presents with concerns of ongoing left lower rib pain. States that she apparently had an empyema several weeks ago which was drained which is where the infection is still present. She reports a constant, throbbing, severe pain to the left lower rib region. Coughing or touching the area worsens the pain. Nothing improves the pain. She does take Percocet 15 every 4 hours as well as fentanyl. Notes that she is also had increased wheezing and shortness of breath over the last 2-3 days. She is scheduled to see her primary care doctor tomorrow. TRAVEL OUTSIDE OF THE [place] IN LAST 30 DAYS: No - Related Data Allergies/Adverse Reactions: morphine Allergy (Severe, Verified 05/06/16 21:17) Hallucinations clindamycin [Clindamycin] Allergy (Verified 05/06/16 21:17) Past Medical History - General Information source: Patient - Social History Smoking Status: Current Every Day Smoker Frequency of alcohol use: None Drug Abuse: None Lives with: Alone Family History: Reviewed & Not Pertinent Patient has suicidal ideation: No Patient has homicidal ideation: No - Past Medical History Cardiac Medical History: Reports: Hx Heart Attack, Hx Hypercholesterolemia Pulmonary Medical History: Reports: Hx Asthma, Hx COPD, Hx Sleep Apnea Denies: Hx Tuberculosis Neurological Medical History: Denies: Hx Seizures Endocrine Medical History: Reports: Hx Diabetes Mellitus Type 2 Renal/ Medical History: Denies: Hx Peritoneal Dialysis Musculoskeltal Medical History: Reports Hx Arthritis, Reports Hx Fibromyalgia, Reports Hx Musculoskeletal Deformity, Reports Hx Musculoskeletal Trauma Psychiatric Medical History: Reports: Hx Anxiety, Hx Bipolar Disorder, Hx Depression Past Surgical History: Reports: Hx Orthopedic Surgery - shoulder bilateral, Hx Tubal Ligation, Other - Vagal nerve stimulator. Denies: Hx Hysterectomy, Hx Pacemaker - Immunizations Immunizations up to date: Yes Hx Diphtheria, Pertussis, Tetanus Vaccination: Yes Review of Systems - Review of Systems Notes: Constitutional: Negative for fever. HENT: Negative for sore throat. Eyes: Negative for visual changes. Cardiovascular: Negative for chest pain. Respiratory: Positive for shortness of breath. Gastrointestinal: Negative for abdominal pain, vomiting or diarrhea. Genitourinary: Negative for dysuria. Musculoskeletal: Positive for left lower rib pain Skin: Negative for rash. Neurological: Negative for headaches, weakness or numbness. 10 point ROS negative except as marked above and in HPI. Physical Exam - Vital signs Vitals: Temp Pulse Resp BP Pulse Ox 98.1 F 82 16 105/51 L 98 05/22/16 19:33 05/22/16 19:33 05/22/16 19:33 05/22/16 19:33 05/22/16 19:33 Interpretation: Normal Notes: PHYSICAL EXAMINATION: GENERAL: Appears older than stated age. HEAD: Atraumatic, normocephalic. EYES: Pupils equal round and reactive to light, extraocular movements intact, sclera anicteric, conjunctiva are normal. ENT: nares patent, oropharynx clear without exudates. Moderately dry mucous membranes. NECK: Normal range of motion, supple without lymphadenopathy LUNGS: Scattered wheezing bilaterally in all lung kamara although noted respiratory distress or significant diminishment of air movement. HEART: Regular rate and rhythm without murmurs Chest wall: Pain palpated of the left central region of the lower lobes ABDOMEN: Soft, nontender, normoactive bowel sounds. No guarding, no rebound. No masses appreciated. EXTREMITIES: Normal range of motion, no pitting or edema. No cyanosis. NEUROLOGICAL: No focal neurological deficits. Moves all extremities spontaneously and on command. PSYCH: Appears anxious SKIN: Warm, Dry, normal turgor, no rashes or lesions noted. Course - Re-evaluation Re-evalutation: 05/23/16 00:43 Patient presents for 6 weeks of progressively worsening left lower chest wall pain and increasing shortness of breath. States that she had apparently an empyema in her lung which was drained [place] and she is convinced that this still is present. And so a prescription called associated does not have a fever, no leukocytosis or tachycardia. Likewise chest x-ray is clear. I've explained this to the patient but she is insistent that she wants this reevaluated with a CT scan of the chest today so will therefore proceed per patient's request. Does have some wheezing on exam but no respiratory distress. Will provide nebulizers and begin steroids. Provide [facility] home pain control here. If her CT scan is normal plan for discharge home with return precautions and follow-up recommendations. 05/23/16 03:20 CT scan does demonstrate a small left upper lobe pneumonia. Patient will be started on oral levofloxacin and discharged home with recommendations for close outpatient follow-up as well as return precautions. - Vital Signs Vital signs: Temp Pulse Resp BP Pulse Ox 98.1 F 82 16 105/51 L 98 05/22/16 19:33 05/22/16 19:33 05/22/16 19:33 05/22/16 19:33 05/22/16 19:33 - Laboratory Result Diagrams: 05/22/16 20:20 05/22/16 20:20 Laboratory results interpreted by me: 05/22/16 05/22/16 05/22/16 20:20 20:20 21:11 Hgb 11.3 L Hct 34.3 L Chloride 94 L Carbon Dioxide 36 H BUN 24 H Calcium 10.5 H Ur Leukocyte Esterase TRACE H - Diagnostic Test Radiology reviewed: Reports reviewed Discharge - Discharge Clinical Impression: Left upper lobe pneumonia Qualifiers: Pneumonia type: due to unspecified organism Qualified Code(s): J18.1 - Lobar pneumonia, unspecified organism Condition: Good Disposition: HOME, SELF-CARE Additional Instructions: You have been diagnosed with a pneumonia. It is very important that you take all of your antibiotics until they are gone even if you are feeling better. Please return to the emergency department immediately if you began having worsening shortness of breath, become confused, have worsening pain, pass out, have persistent vomiting that prevents you from being able to drink fluids for more than 12 hours, or have any other symptoms that are worrisome to you. Please follow-up with your primary care doctor in the next 1-2 days. Prescriptions: Levofloxacin [Levaquin 750 mg Tablet] 750 mg PO DAILY #4 tablet Nystatin [Mycostatin [id number] Unit/1 ml Susp 60 ml Btl] 4 ml PO QID #60 ml Referrals: DENNIS HURLEY MD [Primary Care Provider] - Follow up tomorrow
[2016-05-23] MEDS ORDERED: LEVOFLOXACIN 750 MG TABLET PO ONE (03:20)
== END 2016-05-23 04:34 | disposition home or self-care (01) ==
LOC: ER 18:51
DX: J18.1 Lobar pneumonia, unspecified organism (principal); J44.9 Chronic obstructive pulmonary disease, unspecified; F17.200 Nicotine dependence, unspecified, uncomplicated; R07.81 Pleurodynia; R07.89 Other chest pain; M54.9 Dorsalgia, unspecified; M54.2 Cervicalgia; G89.29 Other chronic pain; F11.20 Opioid dependence, uncomplicated; R06.02 Shortness of breath; J45.909 Unspecified asthma, uncomplicated; E11.9 Type 2 diabetes mellitus without complications; I25.2 Old myocardial infarction; Z98.890 Other specified postprocedural states
CPT/HCPCS: 94640; 99284; 36415; 87040; 82553; 82550; 85025; 80053; 81001; 71020; 71260; A9270 ×4; J7620

== ENCOUNTER → 2016-06-04 | Outpatient (CLI) | payer MEDICARE, MEDICAID | LOC: RAD 13:15 | PROVIDERS: ATTEND Obstetrics & Gynecology | DX: G30.9 Alzheimer's disease, unspecified (principal); R41.0 Disorientation, unspecified | CPT/HCPCS: 70470 ==

== ENCOUNTER → 2016-06-26 | Emergency (ER) | payer MEDICARE, MEDICAID ==
[~2016-06-26] MED LIST: NORMAL SALINE 1000 ML 1,000 ML IV ONE
--- NOTE | 2016-06-26 18:36 | ER Document Report ---
ED General - General Chief Complaint: Nausea/Vomiting Stated Complaint: WEAKNESS Mode of Arrival: Medic Information source: Patient, H Records Notes: This is a 55-year-old female with a history of chronic opiate use and chronic pain history and recent diagnosis of pneumonia and empyema over the past 3 months presents with diarrhea daily for the past 7 days and feeling weak and shaky. She also is concerned about her persistent left-sided rib pain which she says has been present for several months secondary to the empyema drained several months ago and she feels that her pneumonia may be coming back. She denies any fevers or chills. No chest pain. No productive cough. She has not vomited. She does report decreased po intake. Of note, she was last seen here on 05/23/[address] demonstrated small MIKE pneumonia and she was treated with Levaquin. She reports compliance with all medications. She has a follow up appointment with her PCP next week. TRAVEL OUTSIDE OF THE [place] IN LAST 30 DAYS: No - Related Data Allergies/Adverse Reactions: morphine Allergy (Severe, Verified 05/06/16 21:17) Hallucinations clindamycin [Clindamycin] Allergy (Verified 05/06/16 21:17) Past Medical History - Social History Smoking Status: Former Smoker - quit 6 months ago Family History: Reviewed & Not Pertinent - Past Medical History Cardiac Medical History: Reports: Hx Heart Attack, Hx Hypercholesterolemia Pulmonary Medical History: Reports: Hx Asthma, Hx COPD, Hx Sleep Apnea Denies: Hx Tuberculosis Neurological Medical History: Denies: Hx Seizures Endocrine Medical History: Reports: Hx Diabetes Mellitus Type 2 Renal/ Medical History: Denies: Hx Peritoneal Dialysis Musculoskeltal Medical History: Reports Hx Arthritis, Reports Hx Fibromyalgia, Reports Hx Musculoskeletal Deformity, Reports Hx Musculoskeletal Trauma Psychiatric Medical History: Reports: Hx Anxiety, Hx Bipolar Disorder, Hx Depression Past Surgical History: Reports: Hx Orthopedic Surgery - shoulder bilateral, Hx Tubal Ligation, Other - Vagal nerve stimulator. Denies: Hx Hysterectomy, Hx Pacemaker - Immunizations Immunizations up to date: Yes Hx Diphtheria, Pertussis, Tetanus Vaccination: Yes Review of Systems - Review of Systems Notes: REVIEW OF SYSTEMS: CONSTITUTIONAL : Denies fever, chills, or sweats. Otherwise as per HPI. EENT: Denies eye, ear, throat, or mouth pain or symptoms. Denies nasal or sinus congestion. CARDIOVASCULAR: Denies chest pain. RESPIRATORY: As per history of present illness GASTROINTESTINAL: Denies abdominal pain. Diarrhea as per history of present illness GENITOURINARY: Denies difficulty urinating, painful urination, burning, frequency, or blood in urine. MUSCULOSKELETAL: Denies neck or back pain or joint pain or swelling. SKIN: Denies rash or skin lesions. HEMATOLOGIC : No complaints LYMPHATIC: No complaints NEUROLOGICAL: Denies altered mental status or loss of consciousness. Denies headache. PSYCHIATRIC: Denies anxiety or stress or depression. ALL OTHER SYSTEMS REVIEWED AND NEGATIVE. Physical Exam - Vital signs Vitals: Resp Pulse Ox 15 93 06/26/16 19:23 06/26/16 19:23 - Notes Notes: PHYSICAL EXAMINATION: GENERAL: chronically ill appearing female appearing older than stated age, pleasant and conversant and in no acute distress. HEAD: Atraumatic, normocephalic. EYES: Pupils equal round and reactive to light, extraocular movements intact, sclera anicteric, conjunctiva are normal. ENT: nares patent, oropharynx clear without exudates. Moist mucous membranes. NECK: Normal range of motion, supple without lymphadenopathy LUNGS: Breath sounds clear to auscultation bilaterally and equal. No wheezes rales or rhonchi. HEART: Regular rate and rhythm without murmurs ABDOMEN: Soft, nontender, normoactive bowel sounds. No guarding, no rebound. No masses appreciated. EXTREMITIES: Normal range of motion, no pitting or edema. NEUROLOGICAL: Cranial nerves grossly intact. Normal speech. No gross focal motor or sensory deficits appreciated. PSYCH: Normal mood, flat affect. SKIN: Warm, Dry, normal turgor, no rashes or lesions noted. Course - Re-evaluation Re-evalutation: 06/26/16 20:58 Patient has remained hemodynamically stable with no tachypnea and no hypoxia throughout her ER stay. Her labs are reviewed and are her baseline. Her chest x-ray is reviewed with no infiltrate. She has been unable to give a stool sample here despite her complaint of daily diarrhea for the past 7 days. I do have concern for possible C. difficile. She will be instructed to submit a stool sample to lab when she is able. She will follow up with her primary care physician. At this point I do not see indication for inpatient admission or further antibiotic treatment. - Vital Signs Vital signs: Temp Pulse Resp BP Pulse Ox 88 21 H 134/88 H 98 06/26/16 21:35 06/26/16 21:35 06/26/16 21:35 06/26/16 21:35 - Laboratory Result Diagrams: 06/26/16 19:20 06/26/16 19:20 Laboratory results interpreted by me: 06/26/16 06/26/16 06/26/16 19:15 19:20 19:20 RBC 3.59 L Hgb 10.7 L Hct 32.1 L RDW 14.2 H Est GFR (Non-Af Amer) 56 L AST 46 H Urine Ascorbic Acid 20 H - Diagnostic Test Radiology reviewed: Reports reviewed - no infiltrate - EKG Interpretation by Me Additional EKG results interpreted by me: 06/26/16 21:00 EKG at 2011 demonstrates normal sinus rhythm with a rate of 91. There is no ST segment elevation or depression. Intervals are within normal limits. Discharge - Discharge Clinical Impression: Generalized weakness Diarrhea Qualifiers: Diarrhea type: unspecified type Qualified Code(s): R19.7 - Diarrhea, unspecified Condition: Stable Disposition: HOME, SELF-CARE Additional Instructions: Diarrhea Diarrhea means frequent, watery stools. There are many causes. Any problem that keeps the intestinal tract from absorbing water from the stool can lead to diarrhea. A sudden new diarrhea problem is usually caused by a virus, food sensitivity, toxic bacteria, or drugs. In this case, we expect the problem to go away soon. Testing is done only if you seem seriously ill from the diarrhea. If you have chronic diarrhea, or diarrhea that keeps coming back, we need to find out why. Chronic diarrhea can be due to inflammation of the bowels such as Crohn's disease or ulcerative colitis, food sensitivity such as intolerance to lactose or wheat protein, irritable bowel syndrome, and other problems. If your diarrhea is a significant problem but it's not clear why you have it, we' ll refer you to a specialist for further testing. During an episode of diarrhea, drink small amounts (two to six ounces) of clear liquids (soft drinks, sport drinks, herb teas, broth, etc). Take fluids frequently to prevent dehydration. It's usually not a problem to take mild anti- diarrhea medication such as Kaopectate or Pepto-Bismol. As the diarrhea eases, advance to small amounts of bland food (mashed potato, toast) for 24 hours. Call the physician if blood appears in your vomit or stool, if vomiting lasts longer than 24 hours, if the abdominal pain worsens or becomes localized to one area, if you develop high fever, or if you become lightheaded and weak. \ As instructed, please submit a stool sample to the laboratory when you are able. Also please follow-up with your primary care physician as soon as possible. Return to the ER for high fevers, increased breathing difficulty, or any worsening symptoms or concerns. Referrals: LUTHER GRAHAM MD [Primary Care Provider] - Follow up in 3-5 days
[2016-06-26 19:31] LABS: APPEARANCE,URINE CLEAR; BILIRUBIN,URINE NEGATIVE (NEGATIVE); GLUCOSE, URINE NEGATIVE (NEGATIVE); KETONES,URINE NEGATIVE (NEGATIVE); LEUKOCYTE ESTERASE,URINE NEGATIVE (NEGATIVE); NITRITE,URINE NEGATIVE (NEGATIVE); PROTEIN,URINE NEGATIVE (NEGATIVE); URINE SPECIFIC GRAVITY 1.015; UROBILINOGEN,URINE NEGATIVE mg/dL (<2.0)
[2016-06-26 19:46] LABS: ABSOLUTE EOSINOPHILS # (AUTO) 0.2 10^3/uL (0.0-0.6); ABSOLUTE LYMPHOCYTES (AUTO) 1.4 10^3/uL (0.5-4.7); ABSOLUTE MONOCYTES (AUTO) 0.2 10^3/uL (0.1-1.4); ABSOLUTE NEUT (AUTO) 3.6 10^3/uL (1.7-8.2); BASOPHILS % (AUTO) 0.8 % (0-2); EOSINOPHILS % (AUTO) 3.1 % (0-6); HEMATOCRIT 32.1 % (36.0-47.0); HEMOGLOBIN 10.7 g/dL (12.0-15.5); LYMPHOCYTES % (AUTO) 25.4 % (13-45); MEAN CORPUSCULAR HEMOGLOBIN 29.8 pg (27.0-33.4); MEAN CORPUSCULAR HGB CONC 33.3 g/dL (32.0-36.0); MEAN CORPUSCULAR VOLUME 89 fl (80-97); MONOCYTES % (AUTO) 3.3 % (3-13); RED BLOOD COUNT 3.59 10^6/uL (3.72-5.28); RED CELL DISTRIBUTION WIDTH 14.2 % (11.5-14.0); SEGMENTED NEUTROPHILS % (AUTO) 67.4 % (42-78); WHITE BLOOD COUNT 5.4 10^3/uL (4.0-10.5)
[2016-06-26 20:08] LABS: ALANINE AMINOTRANSFERASE 21 U/L (9-52); ALBUMIN 4.1 g/dL (3.5-5.0); ALKALINE PHOSPHATASE 82 U/L (38-126); ANION GAP 13 (5-19); ASPARTATE AMINO TRANSFERASE 46 U/L (14-36); BILIRUBIN,DIRECT 0.4 mg/dL (0.0-0.4); BILIRUBIN,TOTAL 0.4 mg/dL (0.2-1.3); BLOOD UREA NITROGEN 17 mg/dL (7-20); CALCIUM 9.3 mg/dL (8.4-10.2); CARBON DIOXIDE 26 mmol/L (22-30); CHLORIDE 102 mmol/L (98-107); CREATININE RESULT 1.03 mg/dL (0.52-1.25); GLUCOSE 88 mg/dL (75-110); POTASSIUM 4.1 mmol/L (3.6-5.0); SODIUM 140.8 mmol/L (137-145); TOTAL PROTEIN 7.1 g/dL (6.3-8.2)
[2016-06-26 21:36] VITALS: BP 134/88
--- NOTE | 2016-06-27 20:02 | EKG REPORT ---
SEVERITY:- NORMAL ECG - SINUS RHYTHM : Confirmed by: Annita Castro MD 27-Jun-2016 20:01:56
== END | disposition home or self-care (01) ==
LOC: ER 17:37
DX: R53.1 Weakness (principal); R19.7 Diarrhea, unspecified; R11.2 Nausea with vomiting, unspecified; G89.29 Other chronic pain; R07.81 Pleurodynia; Z87.891 Personal history of nicotine dependence
CPT/HCPCS: 36415; 71020; 80053; 81001; 85025; 87040; 93005; 93010; 99285

== ENCOUNTER 2016-07-24 11:56 | Emergency (ER) | payer MEDICARE, MEDICAID ==
[2016-07-25 07:21] LABS: URINE OPIATES LOW UNCONFIRMED POSITIVE; URINE PHENCYCLIDINE SCREEN NEGATIVE
[2016-07-25 07:22] LABS: URINE BARBITURATES SCREEN NEGATIVE; URINE METHADONE SCREEN NEGATIVE
[2016-07-25 08:26] LABS: CALCIUM 9.6 mg/dL (8.4-10.2)
[2016-07-25 08:27] LABS: ANION GAP 10 (5-19); BLOOD UREA NITROGEN 18 mg/dL (7-20); CARBON DIOXIDE 28 mmol/L (22-30); CHLORIDE 103 mmol/L (98-107); CREATININE RESULT 1.04 mg/dL (0.52-1.25); GLUCOSE 93 mg/dL (75-110); POTASSIUM 3.9 mmol/L (3.6-5.0); SODIUM 141.4 mmol/L (137-145)
[2016-07-25 08:28] LABS: ALBUMIN 3.7 g/dL (3.5-5.0); ASPARTATE AMINO TRANSFERASE 20 U/L (14-36)
[2016-07-25 08:29] LABS: ALKALINE PHOSPHATASE 81 U/L (38-126)
[2016-07-25 08:37] LABS: ALANINE AMINOTRANSFERASE 30 U/L (9-52); BILIRUBIN,TOTAL 0.4 mg/dL (0.2-1.3)
[2016-07-25 08:38] LABS: TOTAL PROTEIN 6.8 g/dL (6.3-8.2)
[2016-07-25 08:57] LABS: ABSOLUTE EOSINOPHILS # (AUTO) 0.1 10^3/uL (0.0-0.6); ABSOLUTE LYMPHOCYTES (AUTO) 1.7 10^3/uL (0.5-4.7); ABSOLUTE MONOCYTES (AUTO) 0.3 10^3/uL (0.1-1.4); ABSOLUTE NEUT (AUTO) 3.7 10^3/uL (1.7-8.2); BASOPHILS % (AUTO) 0.4 % (0-2); EOSINOPHILS % (AUTO) 1.9 % (0-6); HEMOGLOBIN 11.7 g/dL (12.0-15.5); HGB HCT DIFFERENCE -1.9; LYMPHOCYTES % (AUTO) 29.3 % (13-45); MEAN CORPUSCULAR HEMOGLOBIN 29.3 pg (27.0-33.4); MEAN CORPUSCULAR HGB CONC 31.7 g/dL (32.0-36.0); MEAN CORPUSCULAR VOLUME 92 fl (80-97); RED BLOOD COUNT 4.01 10^6/uL (3.72-5.28); RED CELL DISTRIBUTION WIDTH 14.5 % (11.5-14.0); SEGMENTED NEUTROPHILS % (AUTO) 63.4 % (42-78); WHITE BLOOD COUNT 5.8 10^3/uL (4.0-10.5)
[2016-07-25 14:13] LABS: APPEARANCE,URINE CLEAR; BILIRUBIN,URINE NEGATIVE (NEGATIVE); GLUCOSE, URINE NEGATIVE (NEGATIVE); KETONES,URINE TRACE mg/dL (NEGATIVE); LEUKOCYTE ESTERASE,URINE NEGATIVE (NEGATIVE); NITRITE,URINE NEGATIVE (NEGATIVE); PROTEIN,URINE NEGATIVE (NEGATIVE); URINE SPECIFIC GRAVITY 1.026; UROBILINOGEN,URINE NEGATIVE mg/dL (<2.0)
== END 2016-07-24 17:50 | disposition home or self-care (01) ==
LOC: ER 11:56
DX: E86.0 Dehydration (principal); R11.2 Nausea with vomiting, unspecified; R19.7 Diarrhea, unspecified; Z99.81 Dependence on supplemental oxygen; R06.02 Shortness of breath; R53.1 Weakness; G89.29 Other chronic pain; J44.9 Chronic obstructive pulmonary disease, unspecified; Z79.891 Long term (current) use of opiate analgesic
CPT/HCPCS: 36415; 80053; 80307; 81001; 82550; 85025; 96360; 99285

== ENCOUNTER 2016-07-28 07:49 | Inpatient (IN) | payer MEDICARE, MEDICAID ==
[2016-07-28] MEDS ORDERED: RACEPINEPHRINE HCL 2.25% NEB 0.5 ML AMPUL NEB ONE (07:52)
[2016-07-28 08:19] LABS: ABSOLUTE BASOPHILS # (AUTO) 0.1 10^3/uL (0.0-0.2); ABSOLUTE EOSINOPHILS # (AUTO) 0.2 10^3/uL (0.0-0.6); ABSOLUTE LYMPHOCYTES (AUTO) 3.5 10^3/uL (0.5-4.7); ABSOLUTE MONOCYTES (AUTO) 0.5 10^3/uL (0.1-1.4); ABSOLUTE NEUT (AUTO) 5.3 10^3/uL (1.7-8.2); BASOPHILS % (AUTO) 0.7 % (0-2); EOSINOPHILS % (AUTO) 2.5 % (0-6); HEMATOCRIT 36.4 % (36.0-47.0); HEMOGLOBIN 12.2 g/dL (12.0-15.5); HGB HCT DIFFERENCE 0.2; LYMPHOCYTES % (AUTO) 36.2 % (13-45); MEAN CORPUSCULAR HEMOGLOBIN 30.1 pg (27.0-33.4); MEAN CORPUSCULAR HGB CONC 33.4 g/dL (32.0-36.0); MEAN CORPUSCULAR VOLUME 90 fl (80-97); MONOCYTES % (AUTO) 5.1 % (3-13); RED BLOOD COUNT 4.04 10^6/uL (3.72-5.28); RED CELL DISTRIBUTION WIDTH 14.8 % (11.5-14.0); SEGMENTED NEUTROPHILS % (AUTO) 55.5 % (42-78); WHITE BLOOD COUNT 9.6 10^3/uL (4.0-10.5)
--- NOTE | 2016-07-28 08:37 | ER Document Report ---
ED General - General Chief Complaint: Breathing Difficulty Stated Complaint: SHORTNESS OF BREATH Time Seen by Provider: 07/28/16 07:52 Mode of Arrival: Ambulatory Information source: Patient, Emergency Med Personnel Notes: 56-year-old female history of COPD emphysema with complaints of shortness of breath. Patient normally on 4 L of humidified oxygen at home, denies any productivity to cough denies any fevers or chills TRAVEL OUTSIDE OF THE [place] IN LAST 30 DAYS: No - HPI Onset: Just prior to arrival Onset/Duration: Sudden Quality of pain: No pain Severity: Mild Pain Level: Denies Associated symptoms: Shortness of breath Exacerbated by: Walking, Coughing Relieved by: Denies Similar symptoms previously: Yes Recently seen / treated by doctor: Yes - Related Data Allergies/Adverse Reactions: morphine Allergy (Severe, Verified 07/28/16 08:18) Hallucinations clindamycin [Clindamycin] Allergy (Verified 07/28/16 08:18) Past Medical History - Social History Smoking Status: Current Every Day Smoker Cigarette use (# per day): Yes Chew tobacco use (# tins/day): No Smoking Education Provided: Yes - Patient counselled regarding cessation for 4 minutes Frequency of alcohol use: Rare Drug Abuse: None Family History: Reviewed & Not Pertinent Patient has suicidal ideation: No Patient has homicidal ideation: No - Past Medical History Cardiac Medical History: Reports: Hx Heart Attack, Hx Hypercholesterolemia Pulmonary Medical History: Reports: Hx Asthma, Hx COPD, Hx Sleep Apnea Denies: Hx Tuberculosis Neurological Medical History: Denies: Hx Seizures Endocrine Medical History: Reports: Hx Diabetes Mellitus Type 2 Renal/ Medical History: Denies: Hx Peritoneal Dialysis Musculoskeltal Medical History: Reports Hx Arthritis, Reports Hx Fibromyalgia, Reports Hx Musculoskeletal Deformity, Reports Hx Musculoskeletal Trauma Psychiatric Medical History: Reports: Hx Anxiety, Hx Bipolar Disorder, Hx Depression Past Surgical History: Reports: Hx Orthopedic Surgery - shoulder bilateral, Hx Tubal Ligation, Other - Vagal nerve stimulator. Denies: Hx Hysterectomy, Hx Pacemaker - Immunizations Immunizations up to date: Yes Hx Diphtheria, Pertussis, Tetanus Vaccination: Yes Review of Systems - Review of Systems Notes: PHYSICAL EXAMINATION: GENERAL: Well-appearing, well-nourished and in no acute distress. HEAD: Atraumatic, normocephalic. EYES: Pupils equal round and reactive to light, extraocular movements intact, conjunctiva are normal. ENT: Nares patent, oropharynx clear without exudates. Moist mucous membranes. NECK: Normal range of motion, supple without lymphadenopathy or stridor noted LUNGS: Breath sounds clear to auscultation bilaterally and equal. Faint wheezing HEART: Regular rate and rhythm without murmurs ABDOMEN: Soft, nontender, nondistended abdomen. No guarding, no rebound. No masses appreciated. Female : deferred Musculoskeletal: Normal range of motion, no pitting or edema. No cyanosis. NEUROLOGICAL: Cranial nerves grossly intact. Normal speech, normal gait. Normal sensory, motor exams PSYCH: Normal mood, normal affect. SKIN: Warm, Dry, normal turgor, no rashes or lesions noted. Physical Exam - Vital signs Vitals: Temp Pulse Resp BP Pulse Ox 98.1 F 120 H 22 H 170/89 H 90 L 07/28/16 07:50 07/28/16 07:50 07/28/16 07:50 07/28/16 07:50 07/28/16 07:50 Course - Re-evaluation Re-evalutation: 07/28/16 08:42 Patient noted to be satting 84% on 4 L nasal cannula which is her baseline, nonrebreather started racemic epi given for stridor 07/28/16 09:43 07/28/16 09:45 pt noted ot be satting 90% on nonrebreather, hr 132, will admit for resp distress - Vital Signs Vital signs: Temp Pulse Resp BP Pulse Ox 98.1 F 120 H 20 152/79 H 84 L 07/28/16 07:50 07/28/16 07:50 07/28/16 09:01 07/28/16 09:00 07/28/16 09:01 - Laboratory Result Diagrams: 07/28/16 08:03 07/28/16 08:03 Laboratory results interpreted by me: 07/28/16 07/28/16 07/28/16 08:03 08:03 08:03 RDW 14.8 H Calcium 10.4 H Creatine Kinase 203 H CK-MB (CK-2) 6.72 H - Diagnostic Test Radiology reviewed: Image reviewed, Reports reviewed - copd exacerbation Critical Care Note - Critical Care Note Total time excluding time spent on procedures (mins): 34 Comments: 34 minutes of critical care time spent in direct contact evaluating and reevaluating the patient, treating symptoms, reviewing labs and studies and speaking with family and consultants excluding any procedures Discharge - Discharge Clinical Impression: Obstructive chronic bronchitis with exacerbation, Tobacco use disorder, Hypoxemia, Respiratory distress COPD (chronic obstructive pulmonary disease) Qualifiers: COPD type: unspecified COPD Qualified Code(s): J44.9 - Chronic obstructive pulmonary disease, unspecified Condition: Fair Disposition: ADMITTED INPATIENT Admitting Provider: Hospitalist Unit Admitted: [facility]
[2016-07-28] MEDS ORDERED: IPRATROPIUM/ALBUTEROL 0.5-2.5 MG/3 ML AMPUL NEB ONE ×2 (08:38)
[2016-07-28 08:39] LABS: ALANINE AMINOTRANSFERASE 33 U/L (9-52); ALBUMIN 4.2 g/dL (3.5-5.0); ALKALINE PHOSPHATASE 107 U/L (38-126); ANION GAP 14 (5-19); ASPARTATE AMINO TRANSFERASE 27 U/L (14-36); BILIRUBIN,DIRECT 0.4 mg/dL (0.0-0.4); BILIRUBIN,TOTAL 0.4 mg/dL (0.2-1.3); BLOOD UREA NITROGEN 18 mg/dL (7-20); CALCIUM 10.4 mg/dL (8.4-10.2); CARBON DIOXIDE 28 mmol/L (22-30); CHLORIDE 103 mmol/L (98-107); CREATINE KINASE 203 U/L (30-135); CREATININE RESULT 0.93 mg/dL (0.52-1.25); GLUCOSE 104 mg/dL (75-110); POTASSIUM 4.3 mmol/L (3.6-5.0); SODIUM 144.6 mmol/L (137-145); TOTAL PROTEIN 7.5 g/dL (6.3-8.2)
[2016-07-28 08:51] LABS: CREATINE KINASE MB 6.72 ng/mL (<4.55)
[2016-07-28 08:52] LABS: TROPONIN I < 0.012 ng/mL
[2016-07-28] MEDS ORDERED: ACETAMINOPHEN 325 MG TABLET PO ONE (09:03)
[2016-07-28] MEDS ORDERED: SUCCINYLCHOLINE CHLORIDE INJ 200 MG/10 ML VIAL ONE (09:16)
[2016-07-28 09:35] LABS: APPEARANCE,URINE CLEAR; BILIRUBIN,URINE NEGATIVE (NEGATIVE); GLUCOSE, URINE NEGATIVE (NEGATIVE); KETONES,URINE NEGATIVE (NEGATIVE); LEUKOCYTE ESTERASE,URINE NEGATIVE (NEGATIVE); NITRITE,URINE NEGATIVE (NEGATIVE); PROTEIN,URINE NEGATIVE (NEGATIVE); UROBILINOGEN,URINE NEGATIVE mg/dL (<2.0)
[2016-07-28 10:30] LABS: ARTERIAL BLOOD O2 SATURATION 90.6 % (94-98)
[2016-07-28] MEDS ORDERED: NALOXONE HCL INJ/PF 0.4 MG/1 ML SDV ONE (10:31)
[2016-07-28] MEDS ORDERED: LEVALBUTEROL HCL NEB 0.63 MG/3 ML AMPUL NEB PRN (10:37)
--- NOTE | 2016-07-28 10:51 | Progress Note ---
Provider Note Provider Note: ANNA PINEDA Search Criteria: Last Name Marco' and First Name Jerri' and = '' and Request Period = '01/30/16' to 07/28/16' - 1 out of 1 Recipients Selected. Fill Date Product, Str, Form Qty Days Pt ID Prescriber Written RX# N/R* Pharm MED+ ------ ---- --------- --- ------- ----- - 07/19/2016 ALPRAZOLAM 2 MG TABLET 120.00 30 [id number] 07/19/2016 [id number] N [id number] 00.0 07/08/2016 FENTANYL 75 MCG/HR PATCH 15.00 30 [id number] 07/08/2016 [id number] N [id number] 270.0 07/01/2016 OXYCODONE HCL 15 MG TABLET 120.00 30 [id number] 06/28/2016 [id number] N [id number] 90.0 06/20/2016 ALPRAZOLAM 2 MG TABLET 120.00 30 [id number] 06/13/2016 [id number] N [id number] 00.0 06/07/2016 FENTANYL 75 MCG/HR PATCH 15.00 30 [id number] 06/06/2016 [id number] N [id number] 270.0 05/31/2016 OXYCODONE HCL 15 MG TABLET 120.00 30 [id number] 05/31/2016 [id number] N [id number] 90.0 05/17/2016 ALPRAZOLAM 2 MG TABLET 120.00 30 [id number] 05/17/2016 [id number] N [id number] 00.0 05/10/2016 FENTANYL 75 MCG/HR PATCH 15.00 30 [id number] 05/10/2016 [id number] N [id number] 270.0 05/01/2016 OXYCODONE HCL 15 MG TABLET 120.00 30 [id number] 05/01/2016 423448 N [id number] 90.0 04/18/2016 ALPRAZOLAM 2 MG TABLET 120.00 30 [id number] 04/18/2016 [id number] N [id number] 00.0 04/10/2016 FENTANYL 75 MCG/HR PATCH 15.00 30 [id number] 04/09/2016 [id number] N [id number] 270.0 04/10/2016 OXYCODONE-ACETAMINOPHEN 10-325 120.00 30 [id number] 2016 565061 N [id number] 60.0 03/18/2016 ALPRAZOLAM 2 MG TABLET 120.00 30 [id number] 03/18/2016 [id number] N [id number] 00.0 03/08/2016 OXYCODONE-ACETAMINOPHEN 10-325 120.00 30 [id number] 2015 [id number] N [id number] 60.0 03/08/2016 FENTANYL 75 MCG/HR PATCH 15.00 30 [id number] 03/06/2016 [id number] N [id number] 270.0 02/15/2016 ALPRAZOLAM 2 MG TABLET 120.00 30 [id number] 02/15/2016 [id number] N [id number] 00.0 [id number] LUTHER GRAHAM MD; [address] [place] [id number] Pharmacies that dispensed prescriptions listed [id number] [employer] [facility]; PETER COTTO, D[employer]B/A [employer]
[2016-07-28] MEDS ORDERED: PHARMACY COMMUNICATION ORDER MC NR (11:30)
[2016-07-28] MEDS ORDERED: SUCCINYLCHOLINE CHLORIDE INJ 200 MG/10 ML VIAL IV ONE (11:33)
[2016-07-28] MEDS ORDERED: ETOMIDATE INJ/PF 20 MG/10 ML SDV IV ONE (11:33)
[2016-07-28] MEDS ORDERED: NALOXONE HCL INJ/PF 0.4 MG/1 ML SDV IV ONE (12:30)
[2016-07-28 12:54] LABS: ARTERIAL BLOOD BASE EXCESS 2.4 mmol/L; ARTERIAL BLOOD O2 SATURATION 99.4 % (94-98)
[2016-07-28 13:14] LABS: PROTHROMBIN TIME 12.5 SEC (11.4-15.4)
[2016-07-28] MEDS: NORMAL SALINE 1000 ML 1,000 ML IV PRN (14:13)
[2016-07-28] MEDS: LEVALBUTEROL HCL NEB 1.25 MG/3 ML AMPUL NEB SCH ×2 (14:34→20:34)
[2016-07-28] MEDS ORDERED: METHYLPREDNISOLONE INJ 125 MG/2 ML SDV IV ONE (15:30)
[2016-07-28] MEDS ORDERED: LORATADINE 10 MG TABLET PO ONE (15:30)
--- NOTE | 2016-07-28 16:47 | PDOC CONSULTATION ---
Consultation Consult Date: 07/28/16 Attending physician:: TEGAN PLUMMER Consult reason:: tachypnia/hypoxia History of Present Illness Admission Date/PCP: 07/28/16 10:37 DARLEEN MUELLER MD History of Present Illness: MIRIAM CASTILLO is a 56 year old female presenting to ED complaining of pain and SOB,sheadmitted to a dry cough no hemoptysis.She was quite dypsnic unable to givw a good history Past Medical History Cardiac Medical History: Reports: Myocardial Infarction, Hyperlipidema Pulmonary Medical History: Reports: Asthma, Chronic Obstructive Pulmonary Disease (COPD), Sleep Apnea Denies: Tuberculosis Neurological Medical History: Denies: Seizures Endocrine Medical History: Reports: Diabetes Mellitus Type 2 Musculoskeltal Medical History: Reports: Arthritis, Fibromyalgia Psychiatric Medical History: Reports: Bipolar Disorder, Depression Hematology: Reports: Anemia Past Surgical History Past Surgical History: Reports: Orthopedic Surgery - shoulder bilateral, Tubal Ligation, Other - Vagal nerve stimulator Denies: Hysterectomy, Pacemaker Social History Information Source: [facility] Records Smoking Status: Current Every Day Smoker Frequency of Alcohol Use: None Hx Recreational Drug Use: No Drugs: None Hx Prescription Drug Abuse: No Family History Family History: Reviewed & Not Pertinent Parental Family History Reviewed: No Children Family History Reviewed: No Sibling(s) Family History Reviewed.: No Medication/Allergy Allergies/Adverse Reactions: morphine Allergy (Severe, Verified 07/28/16 08:18) Hallucinations clindamycin [Clindamycin] Allergy (Verified 07/28/16 08:18) Review of Systems ROS unobtainable: Due to endotracheal tube, Due to mental status Physical Exam Vital Signs: Temp Pulse Resp BP Pulse Ox 98.1 F 120 H 26 H 178/88 H 89 L 07/28/16 07:50 07/28/16 07:50 07/28/16 11:00 07/28/16 11:00 07/28/16 11:00 General appearance: PRESENT: cooperative, disheveled, mild distress, well- developed, well-nourished Head exam: PRESENT: atraumatic, normocephalic Eye exam: PRESENT: conjunctiva pale Mouth exam: PRESENT: dry mucosa, neck supple Neck exam: PRESENT: carotid bruit Respiratory exam: PRESENT: decreased breath sounds, prolonged expiratory phas, rhonchi, symmetrical, tachypnea Cardiovascular exam: PRESENT: RRR, +S1, +S2 Pulses: PRESENT: normal radial pulses GI/Abdominal exam: PRESENT: tenderness - RUQ Rectal exam: PRESENT: deferred Gentrourinary exam: PRESENT: indwelling catheter Musculoskeletal exam: PRESENT: normal inspection Skin exam: PRESENT: dry, warm Results Impressions: Chest X-Ray 07/28/16 07:52 IMPRESSION: COPD. NO ACUTE RADIOGRAPHIC FINDING IN THE CHEST. Assessment & Plan - Diagnosis (1) COPD (chronic obstructive pulmonary disease) Qualifiers: COPD type: unspecified COPD Qualified Code(s): J44.9 - Chronic obstructive pulmonary disease, unspecified Is this a current diagnosis for this admission?: Yes (2) Hypoxemia Is this a current diagnosis for this admission?: Yes (3) Respiratory distress Is this a current diagnosis for this admission?: Yes (4) Tobacco use disorder Is this a current diagnosis for this admission?: Yes - Time Critical Time spent with patient: 35 or more minutes - 65 min
--- NOTE | 2016-07-28 17:06 | EKG REPORT ---
SEVERITY:- ABNORMAL ECG - SINUS TACHYCARDIA RIGHT ATRIAL ABNORMALITY : Confirmed by: Annita Castro MD 28-Jul-2016 17:05:27
[2016-07-28] MEDS: PROPOFOL 100 ML IV PRN (19:58)
--- NOTE | 2016-07-28 20:20 | HISTORY AND PHYSICAL E ---
History and Physical NAME: MIRIAM CASTILLO : 1960 AGE: 56Y ADMITTED: 07/28/2016 ROOM: 609 CODE STATUS: FULL CODE. PRIMARY CARE PROVIDER: Dr. Hardy. OUTPATIENT CRISIS WORKER: Dr. Graves. CHIEF COMPLAINT: Respiratory distress. HISTORY OF PRESENT ILLNESS: The patient is a 56-year-old female with a past medical history of COPD and emphysema that is well known to the hospitalist service. The patient presented to the emergency department with significant respiratory difficulties via EMS. The patient normally is on 4 L of humidified O2 at home. Upon presentation the patient denied any productive cough, no fevers, chills, no nausea, vomiting or diarrhea. The patient does have significant history of tobacco dependency as well as opiate dependency and benzodiazepine dependency. The patient was found to be saturating at 84% on 4 L and was placed on nonrebreather. The patient was found to be stridorous by the ER provider and an epi neb was given for this. Upon followup the patient was found to be saturating at 90% on nonrebreather. Her heart rate was in the 132 range and the patient was referred to the hospitalist for admission and management. Upon examination of the patient, she was found to be altered and very difficult to arouse. The patient once aroused was nonsensical. Narcan 0.4 mg was administered IV and the patient did become more alert. However, the patient then became increasingly tachypneic as well as tachycardic. The patient remained in sinus tach; however, heart rate remained consistently in the 140s. The patient's oxygen saturation then fell to the mid 80s in spite of 100% nonrebreather. Dr. Carlos was available for bedside consultation, and the patient was seen with the environmental science professor. Given the patient's findings of significant distress including altered mental status, increasing dyspnea, tachypnea and hypoxia, proceeded with intubation. The patient's ER provider, Dr. Carol Mitchell, was gracious in assisting with this. The patient was placed on 100% PRVC and immediately oxygenation improved to 96%. I called and discussed this with the patient's surrogate decision maker who is her stepfather, James Overton. He was reached at [phone]. He concurred that if the patient needed to be intubated, that this was not an issue, as the patient had communicated this to me prior to intubation. He stated that the patient had to take a lot of pain medication due to previous injuries and that this was nothing abnormal for her. He stated that the patient had been seen in the emergency department earlier in the week for her COPD, and he stated that she had been increasingly short of breath, which is what prompted her to seek treatment today. The patient was unable to provide a full history, so history was obtained from previous and current hospital records as well as a short discussion with the father over the phone. PAST MEDICAL HISTORY: 1. Chronic obstructive pulmonary disease of emphysema. 2. Respiratory failure x2 requiring intubation. 3. Fibromyalgia. 4. Bipolar disorder. 5. Opiate dependency, continuous. 6. Benzodiazepine dependency, continuous. 7. Dyslipidemia. 8. Remote history of myocardial infarction. PAST SURGICAL HISTORY: 1. Bilateral shoulder replacements. 2. Tubal ligation. 3. Vagal nerve stimulator. ALLERGIES: CLINDAMYCIN which causes a rash as well as nausea and vomiting. HOME MEDICATIONS: 1. Spiriva 2.5 mcg inhalation daily. 2. Symbicort 160/4.5 mcg 2 inhalations b.i.d. 3. Ventolin HFA inhaler 2 puffs inhalation q.4 h. p.r.n. 4. Xanax 2 mg p.o. q.6 h. 5. Omeprazole 20 mg p.o. daily. 6. Daliresp 100 mcg p.o. daily. 7. Simvastatin 40 mg p.o. daily. 8. Singulair 10 mg p.o. every hour of sleep. 9. Prozac 40 mg p.o. daily. 10. Fentanyl 75 mcg patch transdermally q.72 h. 11. Oxycodone 15 mg p.o. q.6 h. p.r.n. 12. Zantac 150 mg p.o. daily. SOCIAL HISTORY: The patient currently resides at home. She lives with her stepfather. The patient is disabled secondary to her COPD and chronic pain. The patient does have a significant history of tobacco use, equates 37 pack years. Denies any history of alcohol abuse or illicit drug use. The patient is . FAMILY MEDICAL HISTORY: Positive for hypertension. The patient's mother is of COPD. She also had a history of heart disease. No other family history is able to be obtained at this time due to the patient's mental status. REVIEW OF SYSTEMS: A full review of systems cannot be appreciated given the patient's intubation and sedation. PHYSICAL EXAMINATION: GENERAL: On examination, the patient is a frail, chronically ill-appearing 56-year-old female who is currently intubated, sedated and ventilated. VITAL SIGNS: Temperature 98.1, pulse 104, respirations 18, blood pressure is 115/63, oxygen saturation is 95% on 100% PRVC. SKIN: Warm and pale. No rash, not diaphoretic. HEENT: Pupils are pinpoint, equal, round. Conjunctivae pink. Sclerae are nonicteric. There is no JVP. No palpable lymphadenopathy or thyromegaly. Currently ET tube is in place with Griffith. CARDIOVASCULAR: Heart is tachycardic, regular. There is no murmur or rub. CHEST: Extremely diminished throughout both lung kamara, mechanical. ABDOMEN: Soft, nondistended. Bowel sounds are present. No palpable organomegaly. Questionable tenderness noted in right upper quadrant. GENITOURINARY: Russell in place is draining clear yellow urine. BACK: There is no sacral edema. EXTREMITIES: No clubbing. Cool lower extremities. No edema or peripheral signs of embolization. +1 pedal pulses noted bilaterally. PSYCHIATRIC: Currently sedated. NEUROLOGIC: Unable to fully assess at this time. DIAGNOSTICS: Labs values are as follows: Hematology obtained on 07/28/2016: WBC 9.6, hemoglobin 12.2, hematocrit 36.4, platelet count is 391,000. Coagulation obtained on 07/28/2016: PT 12.5, INR 0.91. ABG obtained on 07/28/2016 reveals pH of 7.29, PCO2 44, PO2 59, bicarbonate 26, total CO2 is 27, base excess of oxygen saturation is 90, base excess is 1. This was obtained on a 100% nonrebreather. Chemistry obtained on 07/28/2016: Sodium 144, potassium 4.3, chloride 103, carbon dioxide 28, BUN 18, creatinine 0.93, glucose 104, calcium is 10.4, magnesium is 2.0, bilirubin is 0.4, AST 33, ALT 107, alkaline phosphatase 203, CK 203, CK-MB 6.72, troponin is 0.012, BNP is 150, total protein 7.5, albumin 4.2. Urinalysis obtained on 07/28/2016: Color colorless, appearance clear, pH of 5.0, specific gravity 1.010, protein negative, glucose negative, ketones negative, occult blood negative, nitrite negative, bilirubin negative, urobilinogen negative, leukocyte esterase negative, WBC 0, RBC 1, mucus rare, ascorbic acid is negative. IMPRESSION AND PLAN: 1. Chronic obstructive pulmonary disease exacerbation and emphysema. Will continue nebulizers as well as steroids, continue Singulair and antihistamines and follow. 2. Zkuks-tc-uloficm hypoxemic respiratory failure. This is secondary to #1. The patient is status post intubation. Will obtain CTA of the chest given the patient's persistent tachypnea, hypoxia and tachycardia and will follow. 3. Opiate dependency, continuous. Will resume the patient's home opiates at reduced dosage. 4. Benzodiazepine dependency. Once again, will resume benzodiazepines but at reduced dosage. 5. DVT prophylaxis. Will start the patient on subcutaneous heparin. DISPOSITION: The patient is a FULL CODE. Pending patient's symptomatology and diagnostic findings, will reevaluate as needed. Will admit the patient to inpatient ICU given the patient's respiratory failure and need for intubation. The patient's expected length of stay will surpass 2 midnights. Time spent on this critical care visit including assessment, plan, physical examination, attempt at patient education and extensive review of records as well as collaboration is 90 minutes. DICTATING PHYSICIAN: TEGAN PLUMMER NP [id number] PHY#: [id number] ID: [id number] JOB#: [id number] ACCT: [id number] cc:TEGAN PLUMMER NP > MTDD
[2016-07-28 21:34] LABS: ADD HIVPANEL? NO; HIV (1 AND 2) ANTIBODY NEGATIVE (NEGATIVE)
[2016-07-28] MEDS: METHYLPREDNISOLONE INJ 125 MG/2 ML SDV IV SCH (21:35)
[2016-07-28] MEDS: LORAZEPAM INJ 2 MG/1 ML VIAL IV PRN (21:35)
[2016-07-28] MEDS: MONTELUKAST SODIUM 10 MG TABLET PO SCH (21:36)
[2016-07-28] MEDS: HYDROMORPHONE HCL INJ/PF 2 MG/ML AMPULE IV PRN (22:43)
[2016-07-29] MEDS: PROPOFOL 100 ML IV PRN ×6 (00:07→20:10)
[2016-07-29] MEDS: NORMAL SALINE 1000 ML 1,000 ML IV PRN ×3 (00:08→22:15)
[2016-07-29] MEDS: LEVALBUTEROL HCL NEB 1.25 MG/3 ML AMPUL NEB SCH ×4 (02:09→19:56)
[2016-07-29 04:41] LABS: HEMATOCRIT 32.9 % (36.0-47.0); HEMOGLOBIN 10.8 g/dL (12.0-15.5); HGB HCT DIFFERENCE -0.5; MEAN CORPUSCULAR HEMOGLOBIN 29.7 pg (27.0-33.4); MEAN CORPUSCULAR HGB CONC 32.8 g/dL (32.0-36.0); MEAN CORPUSCULAR VOLUME 90 fl (80-97); RED BLOOD COUNT 3.64 10^6/uL (3.72-5.28); RED CELL DISTRIBUTION WIDTH 14.9 % (11.5-14.0); WHITE BLOOD COUNT 5.5 10^3/uL (4.0-10.5)
[2016-07-29 04:56] LABS: ARTERIAL BLOOD O2 SATURATION 93.7 % (94-98)
[2016-07-29 05:12] LABS: ALANINE AMINOTRANSFERASE 24 U/L (9-52); ALBUMIN 3.6 g/dL (3.5-5.0); ALKALINE PHOSPHATASE 71 U/L (38-126); ANION GAP 8 (5-19); ASPARTATE AMINO TRANSFERASE 23 U/L (14-36); BILIRUBIN,DIRECT 0.3 mg/dL (0.0-0.4); BILIRUBIN,TOTAL 0.3 mg/dL (0.2-1.3); BLOOD UREA NITROGEN 24 mg/dL (7-20); CALCIUM 8.8 mg/dL (8.4-10.2); CARBON DIOXIDE 25 mmol/L (22-30); CHLORIDE 104 mmol/L (98-107); CREATININE RESULT 0.74 mg/dL (0.52-1.25); GLUCOSE 148 mg/dL (75-110); MAGNESIUM 1.9 mg/dL (1.6-2.3); POTASSIUM 4.1 mmol/L (3.6-5.0); SODIUM 137.3 mmol/L (137-145); TOTAL PROTEIN 6.3 g/dL (6.3-8.2)
[2016-07-29] MEDS: METHYLPREDNISOLONE INJ 125 MG/2 ML SDV IV SCH ×3 (05:32→22:14)
[2016-07-29] MEDS: HYDROMORPHONE HCL INJ/PF 2 MG/ML AMPULE IV PRN ×3 (05:39→15:05)
[2016-07-29] MEDS: ENOXAPARIN SODIUM INJ 30 MG/0.3 ML DISP.SYRIN SUBCUT SCH (08:27)
[2016-07-29] MEDS: LORAZEPAM INJ 2 MG/1 ML VIAL IV PRN ×2 (10:01→17:13)
[2016-07-29] MEDS: LORATADINE 10 MG TABLET PO SCH (10:02)
--- NOTE | 2016-07-29 10:17 | PROGRESS NOTE E ---
Progress Note NAME: MIRIAM CASTILLO : 1960 AGE: 56Y DATE: 07/29/2016 ROOM: 609 SUBJECTIVE: The patient is lying in bed. She remains intubated and sedated. The patient's x-ray yet again shows evidence of emphysema but no evidence of infiltrate. The patient has done well overnight. She has remained afebrile. Her blood pressures have been in a good range. She is not requiring vasopressors. The patient is receiving p.r.n. morphine and p.r.n. Ativan given her underlying dependencies. I spoke with the patient's step-dad who is her surrogate decision maker with whom the patient lives with. I have explained the difficulties associated with the patient's underlying chronic lung disease and potential for ventilator dependency and he is aware of such. The patient is unable to voice any concerns at this time. REVIEW OF SYSTEMS: Cannot be appreciated given the patient's mental status. MEDICATIONS: Have been reviewed. PHYSICAL EXAMINATION: GENERAL: The patient is a 56-year-old female who is currently intubated, sedated, appears much older than stated age. VITAL SIGNS: Temperature is 98.4, pulse is 90, respirations 16 whereas her rate is set at 14, blood pressure is 126/69, oxygen saturation is 95% on 60% FiO2. HEENT: Pupils equal, round, reactive to light and accommodation but sluggish. ET is in place, secured with Cristina. There is no JVP. CARDIOVASCULAR: Heart is regular with no murmur or rub. CHEST: Extremely diminished but wheezy, symmetrical. ABDOMEN: Soft, nontender, nondistended. EXTREMITIES: No clubbing, cyanosis, edema. Pedal pulses 1+ noted bilaterally. PSYCHIATRIC: Inaccessible. NEUROLOGIC: The patient is sedated. DIAGNOSTICS: Lab values are as follows: Hematology obtained on 07/29/2016: WBCs are 5.5, hemoglobin is 10.8, hematocrit is 32.9, platelet count is 351,000. ABG obtained on 07/29/2016 reveals pH 7.42, pCO2 is 40.2, pO2 is 67, bicarb is 25. Chemistry obtained on 07/29/2016: Sodium is 137, potassium 4.1, chloride is 104, carbon dioxide is 25, BUN 24, creatinine 0.74, glucose 148, calcium is 8.8, magnesium is 1.9, bilirubin is 0.3, direct bilirubin is 0.3, AST 23, ALT is 24, alk phos 71, total protein 6.3, albumin 3.6. IMPRESSION AND PLAN: 1. CHRONIC OBSTRUCTIVE PULMONARY DISEASE EXACERBATION AND EMPHYSEMA. Will continue nebulizers as well as steroids. The patient is still severely diminished and wheezy. Continue Singulair and antihistamines and will follow. 2. AHFDN-UN-VVMZYLE HYPOXEMIC RESPIRATORY FAILURE SECONDARY TO #1. The patient is post intubation. CTA of the chest was unremarkable. Tachycardia has resolved since. Do appreciate Dr. Carlos's input with this. The patient's pO2 does appear somewhat improved compared to when she came in yesterday. She is currently on 60% FiO2. May possibly drop this to 50%. Will collaborate. 3. OPIATE DEPENDENCY CONTINUOUS. Will defer home opiates for now and continue p.r.n. morphine for evidence of pain or agitation. 4. BENZODIAZEPINES. Will once again defer home and use these p.r.n. IV. 5. POLYPHARMACY. Given the patient's severely depressed lung capacity, the patient is at a high risk for mortality associated with patches and benzodiazepines and opiates. Will attempt to wean the patient down from these to a much lower dosage in an effort to provide a safer pain management regimen. 6. DVT PROPHYLAXIS. Will continue subcutaneous heparin. 7. NUTRITION. Will start trickle feeds. DISPOSITION: The patient is a FULL CODE. Pending patient's symptomatology and diagnostic findings, will reevaluate as needed. The patient remains in ICU given her intubation and sedation. Time spent on this critical care visit including assessment, plan, physical examination, review of records, and collaboration is 40 minutes. DICTATING PHYSICIAN: TEGAN PLUMMER NP [id number] PHY#: [id number] ID: [id number] JOB#: [id number] ACCT: [id number] cc: > YVONNED
[2016-07-29] MEDS: MIDAZOLAM HCL 100 ML IV PRN (20:09)
[2016-07-29] MEDS: MONTELUKAST SODIUM 10 MG TABLET PO SCH (22:14)
[2016-07-30] MEDS: PROPOFOL 100 ML IV PRN ×5 (00:13→20:10)
[2016-07-30] MEDS: LEVALBUTEROL HCL NEB 1.25 MG/3 ML AMPUL NEB SCH ×4 (02:07→20:13)
[2016-07-30] MEDS: HYDROMORPHONE HCL INJ/PF 2 MG/ML AMPULE IV PRN ×2 (04:05→08:08)
[2016-07-30 04:47] LABS: HEMATOCRIT 31.7 % (36.0-47.0); HEMOGLOBIN 10.5 g/dL (12.0-15.5); HGB HCT DIFFERENCE -0.2; MEAN CORPUSCULAR HEMOGLOBIN 30.3 pg (27.0-33.4); MEAN CORPUSCULAR HGB CONC 33.3 g/dL (32.0-36.0); MEAN CORPUSCULAR VOLUME 91 fl (80-97); RED BLOOD COUNT 3.49 10^6/uL (3.72-5.28); RED CELL DISTRIBUTION WIDTH 14.9 % (11.5-14.0); WHITE BLOOD COUNT 8.1 10^3/uL (4.0-10.5)
[2016-07-30] MEDS: MIDAZOLAM HCL 100 ML IV PRN ×2 (05:03→19:18)
[2016-07-30 05:06] LABS: ARTERIAL BLOOD BASE EXCESS -0.5 mmol/L; ARTERIAL BLOOD O2 SATURATION 94.2 % (94-98)
[2016-07-30 05:08] LABS: ALANINE AMINOTRANSFERASE 25 U/L (9-52); ALBUMIN 3.4 g/dL (3.5-5.0); ALKALINE PHOSPHATASE 64 U/L (38-126); ANION GAP 8 (5-19); ASPARTATE AMINO TRANSFERASE 16 U/L (14-36); BILIRUBIN,DIRECT 0.3 mg/dL (0.0-0.4); BILIRUBIN,TOTAL 0.3 mg/dL (0.2-1.3); BLOOD UREA NITROGEN 18 mg/dL (7-20); CALCIUM 8.7 mg/dL (8.4-10.2); CARBON DIOXIDE 25 mmol/L (22-30); CHLORIDE 108 mmol/L (98-107); CREATININE RESULT 0.61 mg/dL (0.52-1.25); GLUCOSE 168 mg/dL (75-110); MAGNESIUM 2.1 mg/dL (1.6-2.3); POTASSIUM 3.3 mmol/L (3.6-5.0); SODIUM 140.7 mmol/L (137-145); TOTAL PROTEIN 5.9 g/dL (6.3-8.2)
[2016-07-30 05:32] LABS: BAND NEUTROPHILS % (MANUAL) 1 % (3-5); BASOPHILS % (MANUAL) 0 % (0-2); EOSINOPHILS % (MANUAL) 0 % (0-6); LYMPHOCYTES % (MANUAL) 1 % (13-45); TOTAL CELLS COUNTED 100
[2016-07-30 05:33] LABS: ANISOCYTOSIS SLIGHT; PLATELET CLUMPS PRESENT; POIKILOCYTOSIS SLIGHT
[2016-07-30] MEDS: METHYLPREDNISOLONE INJ 125 MG/2 ML SDV IV SCH ×3 (05:52→21:32)
--- NOTE | 2016-07-30 07:16 | RADIOLOGY REPORT (SQ) ---
EXAM DESCRIPTION: CHEST SINGLE VIEW COMPLETED DATE/TIME: 07/30/2016 6:48 am REASON FOR STUDY: resp fail COMPARISON: 07/29/2016. EXAM PARAMETERS: NUMBER OF VIEWS: One view. TECHNIQUE: Single frontal radiographic view of the chest acquired. RADIATION DOSE: NA LIMITATIONS: None. FINDINGS: LUNGS AND PLEURA: Small left lower lobar retrocardiac bandlike opacity, stable. Moderate left lung volume. MEDIASTINUM AND HILAR STRUCTURES: No masses. Contour normal. HEART AND VASCULAR STRUCTURES: Heart normal in size. Normal vasculature. BONES: Deformity of right lateral upper -mid thoracic ribs. HARDWARE: Adequate appearing endotracheal tube and likely adequate nasogastric tube tip courses infer iorly off the image over the left upper abdominal quadrant -stomach. Stimulation device overlies the left axilla. Metallic anchors of bilateral humeral heads and left glenoid. OTHER: No other significant finding. IMPRESSION: Stable left lower lobar opacity. Lines and tubes. TECHNICAL DOCUMENTATION: JOB ID: [id number]
[2016-07-30] MEDS: ENOXAPARIN SODIUM INJ 30 MG/0.3 ML DISP.SYRIN SUBCUT SCH (08:07)
[2016-07-30] MEDS ORDERED: POTASSIUM CHLORIDE 20 MEQ/15 ML UDCUP NG ONE ×2 (09:00→10:00)
--- NOTE | 2016-07-30 09:57 | PDOC PROGRESS REPORT ---
Subjective Progress Note for:: 07/30/16 Subjective:: Patient is intubated and sedated. Unable to obtain review of systems secondary to this. Physical Exam Vital Signs: Temp Pulse Resp BP Pulse Ox 98.5 F 72 22 H 153/65 H 96 07/30/16 07:44 07/30/16 07:44 07/30/16 07:44 07/30/16 07:44 07/30/16 07:44 Intake & Output 07/29/16 07/30/16 07/31/16 06:59 06:59 06:59 Intake Total 1509 2914 Output Total 740 2045 120 Balance 769 869 -120 Weight 54.8 kg Exam: General: Intubated and sedated HEENT: AT/NC, PERRL, oropharynx is moist, pink, no scleral icterus, no conjunctival injection Neck: No JVD, trachea midline Chest: Clear to auscultation bilaterally, no wheezes, rhonchi, Rales CV: Regular rate and rhythm, normal S1 and S2, no murmur, rub, or gallop Abdomen: Soft, nontender to palpation, nondistended, hypoactive bowel sounds; no rebound, rigidity, or guarding Extremities: No cyanosis, clubbing or edema, large right hand ecchymosis Results Laboratory Results: 07/30/16 04:15 07/30/16 04:15 07/30/16 07/30/16 07/30/16 04:15 04:15 04:35 WBC 8.1 RBC 3.49 L Hgb 10.5 L Hct 31.7 L MCV 91 MCH 30.3 MCHC 33.3 RDW 14.9 H Plt Count 274 Seg Neutrophils % Not Reportable Lymphocytes % Not Reportable Monocytes % Not Reportable Eosinophils % Not Reportable Basophils % Not Reportable Absolute Neutrophils Not Reportable Absolute Lymphocytes Not Reportable Absolute Monocytes Not Reportable Absolute Eosinophils Not Reportable Absolute Basophils Not Reportable Carbonic Acid 1.27 HCO3/H2CO3 Ratio 19:1 ABG pH 7.38 ABG pCO2 42.1 ABG pO2 71.5 L ABG HCO3 24.6 ABG O2 Saturation 94.2 ABG Base Excess -0.5 FiO2 40% Sodium 140.7 Potassium 3.3 L Chloride 108 H Carbon Dioxide 25 Anion Gap 8 BUN 18 Creatinine 0.61 Est GFR ( Amer) > 60 Est GFR (Non-Af Amer) > 60 Glucose 168 H Calcium 8.7 Magnesium 2.1 Total Bilirubin 0.3 AST 16 ALT 25 Alkaline Phosphatase 64 Total Protein 5.9 L Albumin 3.4 L Impressions: Chest/Abdomen CTA 07/28/16 00:00 IMPRESSION: 1. No PE. 2. COPD. Chest X-Ray 07/30/16 06:00 IMPRESSION: Stable left lower lobar opacity. Lines and tubes. Assessment & Plan - Diagnosis (1) Acute hypoxemic respiratory failure Is this a current diagnosis for this admission?: YesPlan: Patient is currently intubated and improving. Appreciate pulmonary input. (2) COPD with exacerbation Is this a current diagnosis for this admission?: YesPlan: Will decrease patient's Solu-Medrol. Currently on weaning trial and doing well. Appreciate pulmonary support. (3) Depression Qualifiers: Depression Type: unspecified Qualified Code(s): F32.9 - Major depressive disorder, single episode, unspecified Is this a current diagnosis for this admission?: YesPlan: Continue Prozac (4) Opiate dependence, continuous Is this a current diagnosis for this admission?: YesPlan: We will resume patient's home fentanyl patch and decrease Dilaudid. (5) Anemia Qualifiers: Anemia type: iron deficiency Iron deficiency anemia type: unspecified iron deficiency Qualified Code(s): D50.9 - Iron deficiency anemia, unspecified Is this a current diagnosis for this admission?: YesPlan: Continue iron and B12 (6) History of MRSA infection Is this a current diagnosis for this admission?: YesPlan: Patient has no history here of MRSA, but has a history of a positive screen. Pending current screen. (7) Tobacco use disorder Is this a current diagnosis for this admission?: YesPlan: Nicotine patch (8) GI Prophylaxis Is this a current diagnosis for this admission?: YesPlan: Will place on Pepcid twice daily (9) Benzodiazepine dependence, continuous Is this a current diagnosis for this admission?: YesPlan: Will resume patient's home Xanax at a lower dose. Will schedule this. (10) Chronic pain Qualifiers: Chronic pain type: other chronic pain Qualified Code(s): G89.29 - Other chronic pain Is this a current diagnosis for this admission?: Yes (11) DVT prophylaxis Is this a current diagnosis for this admission?: YesPlan: On Lovenox and SCDs - Time Critical Time spent with patient: 25-34 minutes Medications reviewed and adjusted accordingly: Yes
[2016-07-30] MEDS ORDERED: FAMOTIDINE 20 MG TABLET PO SCH (10:00)
[2016-07-30] MEDS ORDERED: FERROUS SULFATE 325 MG TABLET PO SCH (10:00)
[2016-07-30] MEDS ORDERED: BUDESONIDE/FORMOTEROL 160-4.5 MCG 60 PUFF/6 GM MDI IH SCH (10:00)
[2016-07-30] MEDS ORDERED: MAGNESIUM OXIDE 400 MG TABLET NG SCH (10:00)
[2016-07-30] MEDS ORDERED: MAGNESIUM OXIDE 250 MG PO SCH (10:00)
[2016-07-30] MEDS ORDERED: LACTULOSE SYRUP 20 GM/30 ML UDCUP NG SCH ×2 (10:00→12:00)
[2016-07-30] MEDS ORDERED: (PENDING PHARMACY ID) (Lactulose [Lactulose] 10 GM) PO SCH (10:00)
[2016-07-30] MEDS ORDERED: ROCURONIUM BROMIDE INJ 50 MG/5 ML VIAL IV ONE (10:10)
[2016-07-30] MEDS: GUAIFENESIN SYRP 200 MG/10 ML UDC NG SCH ×4 (10:23→21:32)
[2016-07-30] MEDS: FLUOXETINE HCL 20 MG/5 ML UDCUP NG SCH (10:23)
[2016-07-30] MEDS: FERROUS SULFATE LIQUID 300 MG/5 ML UDC NG SCH ×3 (10:23→19:13)
[2016-07-30] MEDS: FENTANYL 75 MCG/HR PATCH.TD72 TD SCH (10:25)
[2016-07-30] MEDS: LORATADINE 10 MG TABLET PO SCH (10:27)
[2016-07-30] MEDS: MAGNESIUM OXIDE 400 MG TABLET NG SCH ×2 (10:27→19:13)
[2016-07-30] MEDS: NORMAL SALINE 1000 ML 1,000 ML IV PRN ×2 (14:18→20:10)
[2016-07-30] MEDS: ALPRAZOLAM 0.5 MG TABLET NG SCH ×2 (14:22→21:31)
[2016-07-30] MEDS: LORAZEPAM INJ 2 MG/1 ML VIAL IV PRN (14:26)
[2016-07-30 15:19] LABS: ARTERIAL BLOOD BASE EXCESS 1.3 mmol/L; ARTERIAL BLOOD O2 SATURATION 93.5 % (94-98)
[2016-07-30] MEDS ORDERED: LORAZEPAM INJ 2 MG/1 ML VIAL IV ONE (15:45)
[2016-07-30] MEDS: HALOPERIDOL LACTATE INJ 5 MG/1 ML VIAL IV PRN (16:36)
[2016-07-30] MEDS ORDERED: PHARMACY COMMUNICATION ORDER MC NR (17:15)
--- NOTE | 2016-07-30 18:05 | RADIOLOGY REPORT (SQ) ---
EXAM DESCRIPTION: CHEST SINGLE VIEW COMPLETED DATE/TIME: 07/30/2016 5:52 pm REASON FOR STUDY: SOB, tachypnea, NG/ETT PLACEMENT COMPARISON: Earlier the same day. EXAM PARAMETERS: NUMBER OF VIEWS: One view. TECHNIQUE: Single frontal radiographic view of the chest acquired. RADIATION DOSE: NA LIMITATIONS: None. FINDINGS: LUNGS AND PLEURA: NG tube and NG tube remain in place. The endotracheal tube lies approxi mately 4.8 cm above the renato. It has been partially pulled back. Bibasilar airspace disease and s mall effusions remain. MEDIASTINUM AND HILAR STRUCTURES: No masses. Contour normal. HEART AND VASCULAR STRUCTURES: Heart normal in size. Normal vasculature. BONES: No acute findings. HARDWARE: Unchanged. OTHER: No other significant finding. IMPRESSION: Endotracheal tube has been partially withdrawn as described. It lies 4.8 cm above the c miladys. NG tube remains in place. No change in lung findings. TECHNICAL DOCUMENTATION: JOB ID: [id number]
[2016-07-30 19:09] LABS: ARTERIAL BLOOD BASE EXCESS 1.9 mmol/L; ARTERIAL BLOOD O2 SATURATION 91.5 % (94-98)
[2016-07-30] MEDS: BUDESONIDE NEB 0.5 MG/2 ML AMPUL NEB SCH (20:13)
--- NOTE | 2016-07-30 21:05 | PDOC PROGRESS REPORT ---
Subjective Progress Note for:: 07/29/16 Subjective:: intubated Physical Exam Vital Signs: Temp Pulse Resp BP Pulse Ox 98.4 F 95 16 126/69 H 95 07/29/16 05:55 07/29/16 04:18 07/29/16 06:00 07/29/16 05:58 07/29/16 06:00 Intake & Output 07/28/16 07/29/16 07/30/16 06:59 06:59 06:59 Intake Total 1509 Output Total 740 125 Balance 769 -125 Weight 54.8 kg General appearance: PRESENT: no acute distress, disheveled, obese, well- developed Head exam: PRESENT: atraumatic, normocephalic Eye exam: PRESENT: conjunctiva pale Mouth exam: PRESENT: dry mucosa, neck supple, other - ET tube Neck exam: ABSENT: carotid bruit, JVD, lymphadenopathy, thyromegaly Respiratory exam: PRESENT: decreased breath sounds, prolonged expiratory phas, rales, rhonchi, symmetrical, unlabored Cardiovascular exam: PRESENT: RRR, +S1, +S2 Pulses: PRESENT: normal radial pulses GI/Abdominal exam: PRESENT: normal bowel sounds, soft. ABSENT: distended, guarding, mass, organolmegaly, rebound, tenderness Rectal exam: PRESENT: deferred Gentrourinary exam: PRESENT: indwelling catheter Musculoskeletal exam: PRESENT: normal inspection Skin exam: PRESENT: dry, warm Results Laboratory Results: 07/29/16 04:08 07/29/16 04:08 07/28/16 07/29/16 07/29/16 12:45 04:08 04:08 WBC 5.5 RBC 3.64 L Hgb 10.8 L Hct 32.9 L MCV 90 MCH 29.7 MCHC 32.8 RDW 14.9 H Plt Count 251 Carbonic Acid 1.33 HCO3/H2CO3 Ratio 20:1 ABG pH 7.41 ABG pCO2 44.3 ABG pO2 213.3 H ABG HCO3 27.4 H ABG O2 Saturation 99.4 H ABG Base Excess 2.4 FiO2 90% Sodium 137.3 Potassium 4.1 Chloride 104 Carbon Dioxide 25 Anion Gap 8 BUN 24 H Creatinine 0.74 Est GFR ( Amer) > 60 Est GFR (Non-Af Amer) > 60 Glucose 148 H Calcium 8.8 Magnesium 1.9 Total Bilirubin 0.3 AST 23 ALT 24 Alkaline Phosphatase 71 Total Protein 6.3 Albumin 3.6 07/29/16 04:30 WBC RBC Hgb Hct MCV MCH MCHC RDW Plt Count Carbonic Acid 1.21 HCO3/H2CO3 Ratio 21:1 ABG pH 7.42 ABG pCO2 40.2 ABG pO2 67.2 L ABG HCO3 25.5 ABG O2 Saturation 93.7 L ABG Base Excess 1.0 FiO2 60% Sodium Potassium Chloride Carbon Dioxide Anion Gap BUN Creatinine Est GFR ( Amer) Est GFR (Non-Af Amer) Glucose Calcium Magnesium Total Bilirubin AST ALT Alkaline Phosphatase Total Protein Albumin Impressions: Chest/Abdomen CTA 07/28/16 00:00 IMPRESSION: 1. No PE. 2. COPD. Chest X-Ray 07/29/16 06:00 IMPRESSION: Stable. Assessment & Plan - Diagnosis (1) COPD (chronic obstructive pulmonary disease) Qualifiers: COPD type: unspecified COPD Qualified Code(s): J44.9 - Chronic obstructive pulmonary disease, unspecified Is this a current diagnosis for this admission?: Yes (2) Hypoxemia Is this a current diagnosis for this admission?: Yes (3) Respiratory distress Is this a current diagnosis for this admission?: YesPlan: current fio2;min vol;resp rate stable (4) Tobacco use disorder Is this a current diagnosis for this admission?: Yes - Time Critical Time spent with patient: 35 or more minutes
--- NOTE | 2016-07-30 21:12 | PDOC PROGRESS REPORT ---
Subjective Progress Note for:: 07/30/16 Subjective:: intubated Physical Exam Vital Signs: Temp Pulse Resp BP Pulse Ox 98.5 F 72 22 H 153/65 H 96 07/30/16 07:44 07/30/16 07:44 07/30/16 07:44 07/30/16 07:44 07/30/16 07:44 Intake & Output 07/29/16 07/30/16 07/31/16 06:59 06:59 06:59 Intake Total 1509 2914 Output Total 740 2045 120 Balance 769 869 -120 Weight 54.8 kg General appearance: PRESENT: no acute distress, disheveled, obese, well- developed Head exam: PRESENT: atraumatic, normocephalic Eye exam: PRESENT: conjunctiva pale Mouth exam: PRESENT: dry mucosa, neck supple, other - ET tube Neck exam: ABSENT: carotid bruit, JVD, lymphadenopathy, thyromegaly Respiratory exam: PRESENT: decreased breath sounds, rhonchi, symmetrical, unlabored Cardiovascular exam: PRESENT: RRR, +S1, +S2 Pulses: PRESENT: normal radial pulses GI/Abdominal exam: PRESENT: normal bowel sounds, soft. ABSENT: distended, guarding, mass, organolmegaly, rebound, tenderness Rectal exam: PRESENT: deferred Gentrourinary exam: PRESENT: indwelling catheter Musculoskeletal exam: PRESENT: normal inspection Neurological exam: PRESENT: awake Skin exam: PRESENT: dry Results Laboratory Results: 07/30/16 04:15 07/30/16 04:15 07/30/16 07/30/16 07/30/16 04:15 04:15 04:35 WBC 8.1 RBC 3.49 L Hgb 10.5 L Hct 31.7 L MCV 91 MCH 30.3 MCHC 33.3 RDW 14.9 H Plt Count 274 Seg Neutrophils % Not Reportable Lymphocytes % Not Reportable Monocytes % Not Reportable Eosinophils % Not Reportable Basophils % Not Reportable Absolute Neutrophils Not Reportable Absolute Lymphocytes Not Reportable Absolute Monocytes Not Reportable Absolute Eosinophils Not Reportable Absolute Basophils Not Reportable Carbonic Acid 1.27 HCO3/H2CO3 Ratio 19:1 ABG pH 7.38 ABG pCO2 42.1 ABG pO2 71.5 L ABG HCO3 24.6 ABG O2 Saturation 94.2 ABG Base Excess -0.5 FiO2 40% Sodium 140.7 Potassium 3.3 L Chloride 108 H Carbon Dioxide 25 Anion Gap 8 BUN 18 Creatinine 0.61 Est GFR ( Amer) > 60 Est GFR (Non-Af Amer) > 60 Glucose 168 H Calcium 8.7 Magnesium 2.1 Total Bilirubin 0.3 AST 16 ALT 25 Alkaline Phosphatase 64 Total Protein 5.9 L Albumin 3.4 L Impressions: Chest/Abdomen CTA 07/28/16 00:00 IMPRESSION: 1. No PE. 2. COPD. Chest X-Ray 07/30/16 06:00 IMPRESSION: Stable left lower lobar opacity. Lines and tubes. Assessment & Plan - Diagnosis (1) COPD (chronic obstructive pulmonary disease) Qualifiers: COPD type: unspecified COPD Qualified Code(s): J44.9 - Chronic obstructive pulmonary disease, unspecified Is this a current diagnosis for this admission?: Yes (2) Hypoxemia Is this a current diagnosis for this admission?: Yes (3) Respiratory distress Is this a current diagnosis for this admission?: YesPlan: doing well on ps and cpap will proceed with extubation (4) Tobacco use disorder Is this a current diagnosis for this admission?: Yes - Time Critical Time spent with patient: 35 or more minutes - 70 min
--- NOTE | 2016-07-30 21:17 | PDOC PROGRESS REPORT ---
Subjective Progress Note for:: 07/30/16 Subjective:: failed extubation due to tachypnea did not sustain a responce to Bi-PAP and was subsequuently reintubated Physical Exam Vital Signs: Temp Pulse Resp BP Pulse Ox 99.7 F 68 17 152/70 H 97 07/30/16 19:52 07/30/16 20:13 07/30/16 20:13 07/30/16 18:59 07/30/16 20:13 Intake & Output 07/29/16 07/30/16 07/31/16 06:59 06:59 06:59 Intake Total 1509 2914 1073 Output Total 740 2045 1895 Balance 769 869 -822 Weight 54.8 kg General appearance: PRESENT: disheveled, well-developed, well-nourished Head exam: PRESENT: normocephalic Eye exam: PRESENT: conjunctiva pale Mouth exam: PRESENT: dry mucosa, neck supple, other - ET tube Neck exam: ABSENT: carotid bruit, JVD, lymphadenopathy, thyromegaly Respiratory exam: PRESENT: decreased breath sounds, prolonged expiratory phas, rhonchi, symmetrical, tachypnea Cardiovascular exam: PRESENT: RRR, +S1, +S2 Pulses: PRESENT: normal radial pulses GI/Abdominal exam: PRESENT: normal bowel sounds, soft. ABSENT: distended, guarding, mass, organolmegaly, rebound, tenderness Rectal exam: PRESENT: deferred Gentrourinary exam: PRESENT: indwelling catheter Musculoskeletal exam: PRESENT: normal inspection Skin exam: PRESENT: dry, warm Results Laboratory Results: 07/30/16 04:15 07/30/16 04:15 07/30/16 07/30/16 07/30/16 04:15 04:15 04:35 WBC 8.1 RBC 3.49 L Hgb 10.5 L Hct 31.7 L MCV 91 MCH 30.3 MCHC 33.3 RDW 14.9 H Plt Count 274 Seg Neutrophils % Not Reportable Lymphocytes % Not Reportable Monocytes % Not Reportable Eosinophils % Not Reportable Basophils % Not Reportable Absolute Neutrophils Not Reportable Absolute Lymphocytes Not Reportable Absolute Monocytes Not Reportable Absolute Eosinophils Not Reportable Absolute Basophils Not Reportable Carbonic Acid 1.27 HCO3/H2CO3 Ratio 19:1 ABG pH 7.38 ABG pCO2 42.1 ABG pO2 71.5 L ABG HCO3 24.6 ABG O2 Saturation 94.2 ABG Base Excess -0.5 FiO2 40% Sodium 140.7 Potassium 3.3 L Chloride 108 H Carbon Dioxide 25 Anion Gap 8 BUN 18 Creatinine 0.61 Est GFR ( Amer) > 60 Est GFR (Non-Af Amer) > 60 Glucose 168 H Calcium 8.7 Magnesium 2.1 Total Bilirubin 0.3 AST 16 ALT 25 Alkaline Phosphatase 64 Total Protein 5.9 L Albumin 3.4 L 07/30/16 07/30/16 15:10 18:53 WBC RBC Hgb Hct MCV MCH MCHC RDW Plt Count Seg Neutrophils % Lymphocytes % Monocytes % Eosinophils % Basophils % Absolute Neutrophils Absolute Lymphocytes Absolute Monocytes Absolute Eosinophils Absolute Basophils Carbonic Acid 1.11 1.16 HCO3/H2CO3 Ratio 22:1 22:1 ABG pH 7.45 7.45 ABG pCO2 36.8 38.4 ABG pO2 64.2 L 58.3 L ABG HCO3 25.1 25.9 ABG O2 Saturation 93.5 L 91.5 L ABG Base Excess 1.3 1.9 FiO2 45% 35% Sodium Potassium Chloride Carbon Dioxide Anion Gap BUN Creatinine Est GFR ( Amer) Est GFR (Non-Af Amer) Glucose Calcium Magnesium Total Bilirubin AST ALT Alkaline Phosphatase Total Protein Albumin 07/28/16 17:11 Nasophary ([facility] Only) MRSA Surveillance Culture - Final NO MRSA RECOVERED Impressions: Chest/Abdomen CTA 07/28/16 00:00 IMPRESSION: 1. No PE. 2. COPD. Chest X-Ray 07/30/16 06:00 IMPRESSION: Stable left lower lobar opacity. Lines and tubes. Assessment & Plan - Diagnosis (1) COPD (chronic obstructive pulmonary disease) Qualifiers: COPD type: unspecified COPD Qualified Code(s): J44.9 - Chronic obstructive pulmonary disease, unspecified Is this a current diagnosis for this admission?: Yes (2) Hypoxemia Is this a current diagnosis for this admission?: Yes (3) Respiratory distress Is this a current diagnosis for this admission?: YesPlan: re intubated continue supportive care (4) Tobacco use disorder Is this a current diagnosis for this admission?: Yes - Time Critical Time spent with patient: 35 or more minutes - 90 min
[2016-07-30] MEDS: FAMOTIDINE 20 MG TABLET NG SCH (21:31)
[2016-07-30] MEDS: MONTELUKAST SODIUM 10 MG TABLET NG SCH (21:32)
[2016-07-31] MEDS: PROPOFOL 100 ML IV PRN ×5 (00:50→21:46)
[2016-07-31] MEDS: HALOPERIDOL LACTATE INJ 5 MG/1 ML VIAL IV PRN (00:51)
[2016-07-31] MEDS: LEVALBUTEROL HCL NEB 1.25 MG/3 ML AMPUL NEB SCH ×4 (02:18→20:46)
[2016-07-31] MEDS: MIDAZOLAM HCL 100 ML IV PRN ×3 (02:55→18:02)
[2016-07-31] MEDS: GUAIFENESIN SYRP 200 MG/10 ML UDC NG SCH ×6 (02:55→21:44)
[2016-07-31 04:06] LABS: ALANINE AMINOTRANSFERASE 31 U/L (9-52); ALKALINE PHOSPHATASE 58 U/L (38-126); ANION GAP 8 (5-19); ASPARTATE AMINO TRANSFERASE 16 U/L (14-36); BILIRUBIN,DIRECT 0.2 mg/dL (0.0-0.4); BILIRUBIN,TOTAL 0.2 mg/dL (0.2-1.3); BLOOD UREA NITROGEN 13 mg/dL (7-20); CALCIUM 8.1 mg/dL (8.4-10.2); CARBON DIOXIDE 25 mmol/L (22-30); CHLORIDE 111 mmol/L (98-107); CREATININE RESULT 0.56 mg/dL (0.52-1.25); GLUCOSE 181 mg/dL (75-110); MAGNESIUM 2.1 mg/dL (1.6-2.3); PHOSPHORUS 1.2 mg/dL (2.5-4.5); POTASSIUM 3.3 mmol/L (3.6-5.0); TOTAL PROTEIN 5.3 g/dL (6.3-8.2)
[2016-07-31] MEDS: LORAZEPAM INJ 2 MG/1 ML VIAL IV PRN (04:08)
[2016-07-31 04:13] LABS: PREALBUMIN 27.4 mg/dL (17.6-36.0)
[2016-07-31 04:33] LABS: HEMATOCRIT 30.2 % (36.0-47.0); HGB HCT DIFFERENCE -0.2; MEAN CORPUSCULAR HEMOGLOBIN 29.8 pg (27.0-33.4); MEAN CORPUSCULAR HGB CONC 33.1 g/dL (32.0-36.0); MEAN CORPUSCULAR VOLUME 90 fl (80-97); RED BLOOD COUNT 3.37 10^6/uL (3.72-5.28)
[2016-07-31 04:35] LABS: BASOPHILS % (MANUAL) 0 % (0-2); EOSINOPHILS % (MANUAL) 0 % (0-6); LYMPHOCYTES % (MANUAL) 2 % (13-45); TOTAL CELLS COUNTED 100
[2016-07-31 04:37] LABS: ANISOCYTOSIS SLIGHT; TOXIC GRANULATION SLIGHT; TOXIC VACUOLATION PRESENT
[2016-07-31 05:09] LABS: ARTERIAL BLOOD BASE EXCESS 2.4 mmol/L; ARTERIAL BLOOD O2 SATURATION 94.5 % (94-98)
[2016-07-31] MEDS: ALPRAZOLAM 0.5 MG TABLET NG SCH ×3 (05:26→21:45)
[2016-07-31] MEDS: METHYLPREDNISOLONE INJ 125 MG/2 ML SDV IV SCH ×3 (05:26→21:46)
--- NOTE | 2016-07-31 06:35 | RADIOLOGY REPORT (SQ) ---
EXAM DESCRIPTION: CHEST SINGLE VIEW COMPLETED DATE/TIME: 07/31/2016 6:02 am REASON FOR STUDY: resp failure COMPARISON: 07/30/2016. 06/26/2016. EXAM PARAMETERS: NUMBER OF VIEWS: One view. TECHNIQUE: Single frontal radiographic view of the chest acquired. RADIATION DOSE: NA LIMITATIONS: None. FINDINGS: LUNGS AND PLEURA: New small atelectasis or pneumonia of the left lower lobe/ retrocardiac. Moderate hyperinflation. Small atelectasis or scar of the left mid lung field. Small chronic righ t rib deformities. MEDIASTINUM AND HILAR STRUCTURES: No masses. Contour normal. HEART AND VASCULAR STRUCTURES: Heart normal in size. Normal vasculature. BONES: No acute findings. HARDWARE: Adequate appearing endotracheal tube and likely adequate nasogastric tube courses inferiorl y off the image over the left upper abdominal quadrant. Metallic anchors of bilateral humeral heads and left glenoid. Left electronic stimulation device. OTHER: No other significant finding. IMPRESSION: New small left lower lobar atelectasis or pneumonia. Lines and tubes. TECHNICAL DOCUMENTATION: JOB ID: [id number]
[2016-07-31] MEDS: BUDESONIDE NEB 0.5 MG/2 ML AMPUL NEB SCH ×2 (07:44→20:46)
[2016-07-31] MEDS: NORMAL SALINE 1000 ML 1,000 ML IV PRN ×2 (08:20→21:45)
[2016-07-31] MEDS ORDERED: POTASSIUM CHLORIDE 20 MEQ/15 ML UDCUP NG ONE (09:00)
[2016-07-31] MEDS ORDERED: POTASSIUM PHOS,M-BASIC-D-BASIC 30 MMOL in NORMAL SALINE 500 ML IV ONE (09:30)
[2016-07-31] MEDS ORDERED: LEVOFLOXACIN 750 MG/D5W RTU 150 ML IV SCH (10:00)
[2016-07-31] MEDS: ENOXAPARIN SODIUM INJ 30 MG/0.3 ML DISP.SYRIN SUBCUT SCH (10:01)
[2016-07-31] MEDS: FERROUS SULFATE LIQUID 300 MG/5 ML UDC NG SCH ×3 (10:02→18:02)
[2016-07-31] MEDS: MAGNESIUM OXIDE 400 MG TABLET NG SCH ×2 (10:02→18:02)
[2016-07-31] MEDS: LORATADINE 10 MG TABLET NG SCH (10:02)
[2016-07-31] MEDS: FAMOTIDINE 20 MG TABLET NG SCH ×2 (10:02→21:45)
[2016-07-31] MEDS: FLUOXETINE HCL 20 MG/5 ML UDCUP NG SCH (10:04)
[2016-07-31 14:48] LABS: ANION GAP 7 (5-19); BLOOD UREA NITROGEN 13 mg/dL (7-20); CALCIUM 7.6 mg/dL (8.4-10.2); CARBON DIOXIDE 24 mmol/L (22-30); CHLORIDE 111 mmol/L (98-107); CREATININE RESULT 0.48 mg/dL (0.52-1.25); GLUCOSE 171 mg/dL (75-110); PHOSPHORUS 3.1 mg/dL (2.5-4.5)
[2016-07-31 15:00] LABS: POTASSIUM 4.5 mmol/L (3.6-5.0)
--- NOTE | 2016-07-31 21:28 | PDOC PROGRESS REPORT ---
Subjective Progress Note for:: 07/31/16 Subjective:: Patient required reintubation yesterday. Unable to obtain review of systems secondary to patient's intubated and sedated status. Physical Exam Vital Signs: Temp Pulse Resp BP Pulse Ox 98.3 F 65 20 151/67 H 97 07/31/16 05:49 07/31/16 02:18 07/31/16 06:00 07/31/16 05:59 07/31/16 06:00 Intake & Output 07/30/16 07/31/16 08/01/16 06:59 06:59 06:59 Intake Total 2914 2471 Output Total 2049 8715 Balance 869 76 Weight 58.3 kg Exam: General: Intubated and sedated HEENT: AT/NC, PERRL, oropharynx is moist, pink, no scleral icterus, no conjunctival injection Neck: No JVD, trachea midline Chest: Clear to auscultation bilaterally, no wheezes, rhonchi, or rales CV: Regular rate and rhythm, normal S1 and S2, no murmur, rub, or gallop Abdomen: Soft, nontender to palpation, nondistended, hypoactive bowel sounds; no rebound, rigidity, or guarding Extremities: No cyanosis, clubbing or edema, large right hand ecchymosis Results Laboratory Results: 07/31/16 03:43 07/31/16 03:43 07/30/16 07/30/16 07/31/16 15:10 18:53 03:43 WBC 10.0 RBC 3.37 L Hgb 10.0 L Hct 30.2 L MCV 90 MCH 29.8 MCHC 33.1 RDW 15.0 H Plt Count 275 Seg Neutrophils % Not Reportable Lymphocytes % Not Reportable Monocytes % Not Reportable Eosinophils % Not Reportable Basophils % Not Reportable Absolute Neutrophils Not Reportable Absolute Lymphocytes Not Reportable Absolute Monocytes Not Reportable Absolute Eosinophils Not Reportable Absolute Basophils Not Reportable Carbonic Acid 1.11 1.16 HCO3/H2CO3 Ratio 22:1 22:1 ABG pH 7.45 7.45 ABG pCO2 36.8 38.4 ABG pO2 64.2 L 58.3 L ABG HCO3 25.1 25.9 ABG O2 Saturation 93.5 L 91.5 L ABG Base Excess 1.3 1.9 FiO2 45% 35% Sodium Potassium Chloride Carbon Dioxide Anion Gap BUN Creatinine Est GFR ( Amer) Est GFR (Non-Af Amer) Glucose Calcium Phosphorus Magnesium Total Bilirubin AST ALT Alkaline Phosphatase Total Protein Albumin Prealbumin 07/31/16 07/31/16 03:43 04:45 WBC RBC Hgb Hct MCV MCH MCHC RDW Plt Count Seg Neutrophils % Lymphocytes % Monocytes % Eosinophils % Basophils % Absolute Neutrophils Absolute Lymphocytes Absolute Monocytes Absolute Eosinophils Absolute Basophils Carbonic Acid 1.13 HCO3/H2CO3 Ratio 23:1 ABG pH 7.46 H ABG pCO2 37.4 ABG pO2 67.6 L ABG HCO3 26.1 H ABG O2 Saturation 94.5 ABG Base Excess 2.4 FiO2 35% Sodium 144.0 Potassium 3.3 L Chloride 111 H Carbon Dioxide 25 Anion Gap 8 BUN 13 Creatinine 0.56 Est GFR ( Amer) > 60 Est GFR (Non-Af Amer) > 60 Glucose 181 H Calcium 8.1 L Phosphorus 1.2 L Magnesium 2.1 Total Bilirubin 0.2 AST 16 ALT 31 Alkaline Phosphatase 58 Total Protein 5.3 L Albumin 3.0 L Prealbumin 27.4 07/28/16 17:11 Nasophary ([facility] Only) MRSA Surveillance Culture - Final NO MRSA RECOVERED Impressions: Chest/Abdomen CTA 07/28/16 00:00 IMPRESSION: 1. No PE. 2. COPD. Chest X-Ray 07/31/16 06:00 IMPRESSION: New small left lower lobar atelectasis or pneumonia. Lines and tubes. Assessment & Plan - Diagnosis (1) Hypophosphatemia Is this a current diagnosis for this admission?: YesPlan: We will replete and recheck in a.m. (2) Acute hypoxemic respiratory failure Is this a current diagnosis for this admission?: YesPlan: Patient is currently intubated. Appreciate pulmonary input. (3) COPD with exacerbation Is this a current diagnosis for this admission?: YesPlan: Continue Solu-Medrol. Have added Levaquin for gram-positive cocci. Appreciate pulmonary support. (4) Depression Qualifiers: Depression Type: unspecified Qualified Code(s): F32.9 - Major depressive disorder, single episode, unspecified Is this a current diagnosis for this admission?: Yes (5) Opiate dependence, continuous Is this a current diagnosis for this admission?: Yes (6) Anemia Qualifiers: Anemia type: iron deficiency Iron deficiency anemia type: unspecified iron deficiency Qualified Code(s): D50.9 - Iron deficiency anemia, unspecified Is this a current diagnosis for this admission?: YesPlan: Continue iron and B12 (7) History of MRSA infection Is this a current diagnosis for this admission?: Yes (8) Tobacco use disorder Is this a current diagnosis for this admission?: Yes (9) GI Prophylaxis Is this a current diagnosis for this admission?: Yes (10) Benzodiazepine dependence, continuous Is this a current diagnosis for this admission?: Yes (11) Chronic pain Qualifiers: Chronic pain type: other chronic pain Qualified Code(s): G89.29 - Other chronic pain Is this a current diagnosis for this admission?: Yes (12) DVT prophylaxis Is this a current diagnosis for this admission?: Yes - Time Critical Time spent with patient: 35 or more minutes Medications reviewed and adjusted accordingly: Yes Anticipated discharge: Acute Rehab
[2016-07-31] MEDS: HYDROMORPHONE HCL INJ/PF 2 MG/ML AMPULE IV PRN (21:45)
[2016-07-31] MEDS: MONTELUKAST SODIUM 10 MG TABLET NG SCH (21:45)
[2016-08-01] MEDS: PROPOFOL 100 ML IV PRN ×5 (02:17→20:40)
[2016-08-01] MEDS: GUAIFENESIN SYRP 200 MG/10 ML UDC NG SCH ×5 (02:18→21:15)
[2016-08-01] MEDS: MIDAZOLAM HCL 100 ML IV PRN ×3 (02:18→17:43)
[2016-08-01] MEDS: LEVALBUTEROL HCL NEB 1.25 MG/3 ML AMPUL NEB SCH ×4 (02:50→19:57)
[2016-08-01] MEDS: HYDROMORPHONE HCL INJ/PF 2 MG/ML AMPULE IV PRN ×3 (04:31→23:47)
[2016-08-01 05:03] LABS: ALANINE AMINOTRANSFERASE 33 U/L (9-52); ALBUMIN 3.1 g/dL (3.5-5.0); ALKALINE PHOSPHATASE 63 U/L (38-126); ANION GAP 8 (5-19); ASPARTATE AMINO TRANSFERASE 17 U/L (14-36); BILIRUBIN,DIRECT 0.4 mg/dL (0.0-0.4); BILIRUBIN,TOTAL 0.4 mg/dL (0.2-1.3); BLOOD UREA NITROGEN 12 mg/dL (7-20); CARBON DIOXIDE 26 mmol/L (22-30); CHLORIDE 107 mmol/L (98-107); CREATININE RESULT 0.52 mg/dL (0.52-1.25); GLUCOSE 194 mg/dL (75-110); MAGNESIUM 2.1 mg/dL (1.6-2.3); PHOSPHORUS 1.9 mg/dL (2.5-4.5); SODIUM 140.9 mmol/L (137-145); TOTAL PROTEIN 5.8 g/dL (6.3-8.2)
[2016-08-01 05:08] LABS: HEMOGLOBIN 11.1 g/dL (12.0-15.5); HGB HCT DIFFERENCE 1.3; MEAN CORPUSCULAR HGB CONC 34.5 g/dL (32.0-36.0); MEAN CORPUSCULAR VOLUME 90 fl (80-97); RED BLOOD COUNT 3.57 10^6/uL (3.72-5.28); RED CELL DISTRIBUTION WIDTH 15.3 % (11.5-14.0); WHITE BLOOD COUNT 9.3 10^3/uL (4.0-10.5)
[2016-08-01 05:25] LABS: BASOPHILS % (MANUAL) 0 % (0-2); EOSINOPHILS % (MANUAL) 0 % (0-6); LYMPHOCYTES % (MANUAL) 9 % (13-45); TOTAL CELLS COUNTED 100
[2016-08-01 05:26] LABS: ANISOCYTOSIS SLIGHT; OVALOCYTES SLIGHT; POIKILOCYTOSIS SLIGHT; SCHISTOCYTES SLIGHT; TEAR DROP CELLS SLIGHT; TOXIC GRANULATION SLIGHT; TOXIC VACUOLATION PRESENT
[2016-08-01 06:05] LABS: ARTERIAL BLOOD BASE EXCESS 1.9 mmol/L; ARTERIAL BLOOD O2 SATURATION 94.4 % (94-98)
[2016-08-01] MEDS: METHYLPREDNISOLONE INJ 125 MG/2 ML SDV IV SCH (07:06)
[2016-08-01] MEDS: ALPRAZOLAM 0.5 MG TABLET NG SCH ×3 (07:06→21:15)
--- NOTE | 2016-08-01 07:37 | RADIOLOGY REPORT (SQ) ---
EXAM DESCRIPTION: CHEST SINGLE VIEW COMPLETED DATE/TIME: 08/01/2016 7:24 am REASON FOR STUDY: resp failure COMPARISON: 07/31/2006. EXAM PARAMETERS: NUMBER OF VIEWS: One view. TECHNIQUE: Single frontal radiographic view of the chest acquired. RADIATION DOSE: NA LIMITATIONS: None. FINDINGS: LUNGS AND PLEURA: Moderate hyperinflation. Small strandiness of the left mid lung field. Small left basilar atelectasis or scar. MEDIASTINUM AND HILAR STRUCTURES: No masses. Contour normal. HEART AND VASCULAR STRUCTURES: Heart normal in size. Normal vasculature. BONES: No acute findings. HARDWARE: Adequate appearing endotracheal tube. Likely adequate nasogastric tube. Electronic stimul ation device overlies the left upper lateral hemithorax with leads tips overlying the left supraclavi cular hemithorax. Metallic anchor fixation of the left glenoid and left humeral head. Deformity of right posterior mid hemithoracic rib. OTHER: No other significant finding. IMPRESSION: No significant interval change. TECHNICAL DOCUMENTATION: JOB ID: [id number]
[2016-08-01] MEDS: ENOXAPARIN SODIUM INJ 30 MG/0.3 ML DISP.SYRIN SUBCUT SCH (08:03)
[2016-08-01] MEDS: BUDESONIDE NEB 0.5 MG/2 ML AMPUL NEB SCH ×2 (08:43→19:57)
[2016-08-01] MEDS: NORMAL SALINE 1000 ML 1,000 ML IV PRN ×2 (08:45→17:44)
[2016-08-01] MEDS ORDERED: TOBRAMYCIN SULFATE NEB 40 MG/ML 30 ML NEB SCH (08:45)
[2016-08-01] MEDS ORDERED: DEXTROSE 50%-WATER 25 GM/50 ML DISP.SYRIN IV PRN ×2 (08:57)
[2016-08-01] MEDS ORDERED: DEXTROSE 40% GEL 15 GM TUBE PO PRN ×2 (08:57)
[2016-08-01] MEDS ORDERED: GLUCAGON,HUMAN RECOMB 1 MG INJ IM PRN (08:57)
[2016-08-01] MEDS ORDERED: DEXTROSE 40% GEL 15 GM TUBE NG PRN ×2 (09:18)
[2016-08-01] MEDS ORDERED: TOBRAMYCIN SULFATE NEB 40 MG/ML 30 ML NEB ONE (09:30)
[2016-08-01] MEDS ORDERED: PIPERACILLIN SODIUM/TAZOBACTAM 4.5 GM in NORMAL SALINE 100 ML IV ONE (09:30)
[2016-08-01] MEDS: FENTANYL 75 MCG/HR PATCH.TD72 TD SCH (09:32)
[2016-08-01] MEDS: FERROUS SULFATE LIQUID 300 MG/5 ML UDC NG SCH ×3 (09:32→17:43)
[2016-08-01] MEDS: FLUOXETINE HCL 20 MG/5 ML UDCUP NG SCH (09:33)
[2016-08-01] MEDS: FAMOTIDINE 20 MG TABLET NG SCH ×2 (09:33→21:15)
[2016-08-01] MEDS: LORATADINE 10 MG TABLET NG SCH (09:33)
[2016-08-01] MEDS: MAGNESIUM OXIDE 400 MG TABLET NG SCH ×2 (09:33→17:43)
[2016-08-01] MEDS ORDERED: POTASSIUM PHOS,M-BASIC-D-BASIC 30 MMOL in NORMAL SALINE 500 ML IV ONE (10:00)
[2016-08-01] MEDS: PHOSPHORUS #1 250 MG TABLET NG SCH ×3 (12:17→21:15)
[2016-08-01] MEDS: INSULIN LISPRO 100 UNIT/ML 3 ML VIAL SUBCUT PRN (12:27)
[2016-08-01] MEDS: METHYLPREDNISOLONE INJ 40 MG/1 ML SDV IV SCH ×2 (14:58→21:15)
[2016-08-01] MEDS: PIPERACILLIN SODIUM/TAZOBACTAM 4.5 GM in NORMAL SALINE 100 ML IV SCH ×2 (15:00→20:19)
[2016-08-01 16:29] LABS: ANION GAP 7 (5-19); BLOOD UREA NITROGEN 13 mg/dL (7-20); CALCIUM 7.6 mg/dL (8.4-10.2); CARBON DIOXIDE 26 mmol/L (22-30); CHLORIDE 108 mmol/L (98-107); CREATININE RESULT 0.53 mg/dL (0.52-1.25); GLUCOSE 163 mg/dL (75-110); MAGNESIUM 2.1 mg/dL (1.6-2.3); PHOSPHORUS 3.3 mg/dL (2.5-4.5); POTASSIUM 4.2 mmol/L (3.6-5.0); SODIUM 141.4 mmol/L (137-145)
--- NOTE | 2016-08-01 17:04 | PDOC PROGRESS REPORT ---
Subjective Progress Note for:: 07/31/16 Subjective:: failed extubation due to tachypnea did not sustain a responce to Bi-PAP and was subsequuently reintubated Physical Exam Vital Signs: Temp Pulse Resp BP Pulse Ox 98.6 F 56 L 14 156/61 H 97 07/31/16 08:00 07/31/16 08:00 07/31/16 08:00 07/31/16 08:00 07/31/16 08:00 Intake & Output 07/30/16 07/31/16 08/01/16 06:59 06:59 06:59 Intake Total 2914 2471 Output Total 2043 2015 Balance 869 76 Weight 58.3 kg General appearance: PRESENT: no acute distress, disheveled, obese, well- developed Head exam: PRESENT: atraumatic, normocephalic Eye exam: PRESENT: conjunctiva pale Mouth exam: PRESENT: dry mucosa, neck supple, other - ET tube in place Neck exam: ABSENT: carotid bruit, JVD, lymphadenopathy, thyromegaly Respiratory exam: PRESENT: decreased breath sounds, prolonged expiratory phas, rales, rhonchi, symmetrical, unlabored Cardiovascular exam: PRESENT: RRR, +S1, +S2 Pulses: PRESENT: normal radial pulses GI/Abdominal exam: PRESENT: normal bowel sounds, soft. ABSENT: distended, guarding, mass, organolmegaly, rebound, tenderness Rectal exam: PRESENT: deferred Gentrourinary exam: PRESENT: indwelling catheter Musculoskeletal exam: PRESENT: normal inspection Skin exam: PRESENT: dry, warm Results Laboratory Results: 07/31/16 03:43 07/31/16 03:43 07/30/16 07/30/16 07/31/16 15:10 18:53 03:43 WBC 10.0 RBC 3.37 L Hgb 10.0 L Hct 30.2 L MCV 90 MCH 29.8 MCHC 33.1 RDW 15.0 H Plt Count 275 Seg Neutrophils % Not Reportable Lymphocytes % Not Reportable Monocytes % Not Reportable Eosinophils % Not Reportable Basophils % Not Reportable Absolute Neutrophils Not Reportable Absolute Lymphocytes Not Reportable Absolute Monocytes Not Reportable Absolute Eosinophils Not Reportable Absolute Basophils Not Reportable Carbonic Acid 1.11 1.16 HCO3/H2CO3 Ratio 22:1 22:1 ABG pH 7.45 7.45 ABG pCO2 36.8 38.4 ABG pO2 64.2 L 58.3 L ABG HCO3 25.1 25.9 ABG O2 Saturation 93.5 L 91.5 L ABG Base Excess 1.3 1.9 FiO2 45% 35% Sodium Potassium Chloride Carbon Dioxide Anion Gap BUN Creatinine Est GFR ( Amer) Est GFR (Non-Af Amer) Glucose Calcium Phosphorus Magnesium Total Bilirubin AST ALT Alkaline Phosphatase Total Protein Albumin Prealbumin 07/31/16 07/31/16 03:43 04:45 WBC RBC Hgb Hct MCV MCH MCHC RDW Plt Count Seg Neutrophils % Lymphocytes % Monocytes % Eosinophils % Basophils % Absolute Neutrophils Absolute Lymphocytes Absolute Monocytes Absolute Eosinophils Absolute Basophils Carbonic Acid 1.13 HCO3/H2CO3 Ratio 23:1 ABG pH 7.46 H ABG pCO2 37.4 ABG pO2 67.6 L ABG HCO3 26.1 H ABG O2 Saturation 94.5 ABG Base Excess 2.4 FiO2 35% Sodium 144.0 Potassium 3.3 L Chloride 111 H Carbon Dioxide 25 Anion Gap 8 BUN 13 Creatinine 0.56 Est GFR ( Amer) > 60 Est GFR (Non-Af Amer) > 60 Glucose 181 H Calcium 8.1 L Phosphorus 1.2 L Magnesium 2.1 Total Bilirubin 0.2 AST 16 ALT 31 Alkaline Phosphatase 58 Total Protein 5.3 L Albumin 3.0 L Prealbumin 27.4 07/28/16 17:11 Nasophary ([facility] Only) MRSA Surveillance Culture - Final NO MRSA RECOVERED Impressions: Chest/Abdomen CTA 07/28/16 00:00 IMPRESSION: 1. No PE. 2. COPD. Chest X-Ray 07/31/16 06:00 IMPRESSION: New small left lower lobar atelectasis or pneumonia. Lines and tubes. Assessment & Plan - Diagnosis (1) COPD (chronic obstructive pulmonary disease) Qualifiers: COPD type: unspecified COPD Qualified Code(s): J44.9 - Chronic obstructive pulmonary disease, unspecified Is this a current diagnosis for this admission?: Yes (2) Hypoxemia Is this a current diagnosis for this admission?: Yes (3) Respiratory distress Is this a current diagnosis for this admission?: YesPlan: Minute volume, respiratory rate, FiO2, and airway pressures are improving patient continues to have purulent sputum from ET tube electrolytes are improving but have not completely normalized (4) Tobacco use disorder Is this a current diagnosis for this admission?: Yes - Time Critical Time spent with patient: 25-34 minutes
--- NOTE | 2016-08-01 17:06 | PDOC PROGRESS REPORT ---
Subjective Progress Note for:: 08/01/16 Subjective:: failed extubation due to tachypnea did not sustain a responce to Bi-PAP and was subsequuently reintubated Physical Exam Vital Signs: Temp Pulse Resp BP Pulse Ox 98.3 F 61 14 159/68 H 96 08/01/16 07:46 08/01/16 08:00 08/01/16 07:31 08/01/16 07:31 08/01/16 07:31 Intake & Output 07/31/16 08/01/16 08/02/16 06:59 06:59 06:59 Intake Total 2471 3946 Output Total 3350 6850 175 Balance 76 -2902 -175 Weight 58.3 kg 58.3 kg General appearance: PRESENT: no acute distress, disheveled, obese, well- developed Head exam: PRESENT: atraumatic, normocephalic Eye exam: PRESENT: conjunctiva pale Mouth exam: PRESENT: dry mucosa, neck supple, other - ET tube in place Neck exam: ABSENT: carotid bruit, JVD, lymphadenopathy, thyromegaly Respiratory exam: PRESENT: decreased breath sounds, prolonged expiratory phas, rales, rhonchi, symmetrical, unlabored Cardiovascular exam: PRESENT: RRR, +S1, +S2 Pulses: PRESENT: normal radial pulses GI/Abdominal exam: PRESENT: normal bowel sounds, soft. ABSENT: distended, guarding, mass, organolmegaly, rebound, tenderness Rectal exam: PRESENT: deferred Gentrourinary exam: PRESENT: indwelling catheter Musculoskeletal exam: PRESENT: normal inspection Skin exam: PRESENT: dry, warm Results Laboratory Results: 08/01/16 04:13 08/01/16 04:13 07/31/16 08/01/16 08/01/16 14:02 04:13 04:13 WBC 9.3 RBC 3.57 L Hgb 11.1 L Hct 32.0 L MCV 90 MCH 31.0 MCHC 34.5 RDW 15.3 H Plt Count 343 Seg Neutrophils % Not Reportable Lymphocytes % Not Reportable Monocytes % Not Reportable Eosinophils % Not Reportable Basophils % Not Reportable Absolute Neutrophils Not Reportable Absolute Lymphocytes Not Reportable Absolute Monocytes Not Reportable Absolute Eosinophils Not Reportable Absolute Basophils Not Reportable Carbonic Acid HCO3/H2CO3 Ratio ABG pH ABG pCO2 ABG pO2 ABG HCO3 ABG O2 Saturation ABG Base Excess FiO2 Sodium 142.0 140.9 Potassium 4.5 D 4.0 Chloride 111 H 107 Carbon Dioxide 24 26 Anion Gap 7 8 BUN 13 12 Creatinine 0.48 L 0.52 Est GFR ( Amer) > 60 > 60 Est GFR (Non-Af Amer) > 60 > 60 Glucose 171 H 194 H Calcium 7.6 L 8.0 L Phosphorus 3.1 1.9 L Magnesium 2.0 2.1 Total Bilirubin 0.4 AST 17 ALT 33 Alkaline Phosphatase 63 Total Protein 5.8 L Albumin 3.1 L 08/01/16 05:30 WBC RBC Hgb Hct MCV MCH MCHC RDW Plt Count Seg Neutrophils % Lymphocytes % Monocytes % Eosinophils % Basophils % Absolute Neutrophils Absolute Lymphocytes Absolute Monocytes Absolute Eosinophils Absolute Basophils Carbonic Acid 1.29 HCO3/H2CO3 Ratio 20:1 ABG pH 7.41 ABG pCO2 42.9 ABG pO2 71.0 L ABG HCO3 26.8 H ABG O2 Saturation 94.4 ABG Base Excess 1.9 FiO2 35% Sodium Potassium Chloride Carbon Dioxide Anion Gap BUN Creatinine Est GFR ( Amer) Est GFR (Non-Af Amer) Glucose Calcium Phosphorus Magnesium Total Bilirubin AST ALT Alkaline Phosphatase Total Protein Albumin Impressions: Chest/Abdomen CTA 07/28/16 00:00 IMPRESSION: 1. No PE. 2. COPD. Chest X-Ray 08/01/16 06:00 IMPRESSION: No significant interval change. Assessment & Plan - Diagnosis (1) COPD (chronic obstructive pulmonary disease) Qualifiers: COPD type: unspecified COPD Qualified Code(s): J44.9 - Chronic obstructive pulmonary disease, unspecified Is this a current diagnosis for this admission?: Yes (2) Hypoxemia Is this a current diagnosis for this admission?: Yes (3) Respiratory distress Is this a current diagnosis for this admission?: Yes (4) Tobacco use disorder Is this a current diagnosis for this admission?: Yes - Time Critical Time spent with patient: 35 or more minutes
--- NOTE | 2016-08-01 19:35 | PDOC PROGRESS REPORT ---
Subjective Progress Note for:: 08/01/16 Subjective:: Unable to obtain review of systems secondary to patient's intubated status. On pressure support and currently following commands. Physical Exam Vital Signs: Temp Pulse Resp BP Pulse Ox 98.1 F 59 L 17 180/66 H 97 08/01/16 16:00 08/01/16 18:00 08/01/16 18:04 08/01/16 18:00 08/01/16 18:04 Intake & Output 07/31/16 08/01/16 08/02/16 06:59 06:59 06:59 Intake Total 2471 394 1598 Output Total 2504 0622 2024 Balance 93 -1688 -327 Weight 58.3 kg 58.3 kg Exam: General: Intubated and sedated HEENT: AT/NC, PERRL, oropharynx is moist, pink, no scleral icterus, no conjunctival injection Neck: No JVD, trachea midline Chest: Slight right light lower lobe wheezes CV: Regular rate and rhythm, normal S1 and S2, no murmur, rub, or gallop Abdomen: Soft, nontender to palpation, nondistended, hypoactive bowel sounds; no rebound, rigidity, or guarding Extremities: No cyanosis, clubbing or edema, large right hand ecchymosis Results Laboratory Results: 08/01/16 04:13 08/01/16 15:59 08/01/16 08/01/16 08/01/16 04:13 04:13 05:30 WBC 9.3 RBC 3.57 L Hgb 11.1 L Hct 32.0 L MCV 90 MCH 31.0 MCHC 34.5 RDW 15.3 H Plt Count 343 Seg Neutrophils % Not Reportable Lymphocytes % Not Reportable Monocytes % Not Reportable Eosinophils % Not Reportable Basophils % Not Reportable Absolute Neutrophils Not Reportable Absolute Lymphocytes Not Reportable Absolute Monocytes Not Reportable Absolute Eosinophils Not Reportable Absolute Basophils Not Reportable Carbonic Acid 1.29 HCO3/H2CO3 Ratio 20:1 ABG pH 7.41 ABG pCO2 42.9 ABG pO2 71.0 L ABG HCO3 26.8 H ABG O2 Saturation 94.4 ABG Base Excess 1.9 FiO2 35% Sodium 140.9 Potassium 4.0 Chloride 107 Carbon Dioxide 26 Anion Gap 8 BUN 12 Creatinine 0.52 Est GFR ( Amer) > 60 Est GFR (Non-Af Amer) > 60 Glucose 194 H Calcium 8.0 L Phosphorus 1.9 L Magnesium 2.1 Total Bilirubin 0.4 AST 17 ALT 33 Alkaline Phosphatase 63 Total Protein 5.8 L Albumin 3.1 L 08/01/16 15:59 WBC RBC Hgb Hct MCV MCH MCHC RDW Plt Count Seg Neutrophils % Lymphocytes % Monocytes % Eosinophils % Basophils % Absolute Neutrophils Absolute Lymphocytes Absolute Monocytes Absolute Eosinophils Absolute Basophils Carbonic Acid HCO3/H2CO3 Ratio ABG pH ABG pCO2 ABG pO2 ABG HCO3 ABG O2 Saturation ABG Base Excess FiO2 Sodium 141.4 Potassium 4.2 Chloride 108 H Carbon Dioxide 26 Anion Gap 7 BUN 13 Creatinine 0.53 Est GFR ( Amer) > 60 Est GFR (Non-Af Amer) > 60 Glucose 163 H Calcium 7.6 L Phosphorus 3.3 Magnesium 2.1 Total Bilirubin AST ALT Alkaline Phosphatase Total Protein Albumin Impressions: Chest/Abdomen CTA 07/28/16 00:00 IMPRESSION: 1. No PE. 2. COPD. Chest X-Ray 08/01/16 06:00 IMPRESSION: No significant interval change. Assessment & Plan - Diagnosis (1) Hypophosphatemia Is this a current diagnosis for this admission?: YesPlan: Repeat remains low. Will place on IV phosphorus replacement as well as oral phosphorus replacement. (2) Acute hypoxemic respiratory failure Is this a current diagnosis for this admission?: YesPlan: Patient is currently intubated. Appreciate pulmonary input. (3) COPD with exacerbation Is this a current diagnosis for this admission?: YesPlan: Decrease Solu-Medrol. Have change patient to Zosyn for both gram-positive as well as gram-negative. Concern for aspiration while patient was briefly extubated. Appreciate pulmonary support. (4) Depression Qualifiers: Depression Type: unspecified Qualified Code(s): F32.9 - Major depressive disorder, single episode, unspecified Is this a current diagnosis for this admission?: YesPlan: Continue Prozac (5) Opiate dependence, continuous Is this a current diagnosis for this admission?: YesPlan: We will resume patient's home fentanyl patch and Dilaudid. (6) Anemia Qualifiers: Anemia type: iron deficiency Iron deficiency anemia type: unspecified iron deficiency Qualified Code(s): D50.9 - Iron deficiency anemia, unspecified Is this a current diagnosis for this admission?: Yes (7) History of MRSA infection Is this a current diagnosis for this admission?: Yes (8) Tobacco use disorder Is this a current diagnosis for this admission?: Yes (9) GI Prophylaxis Is this a current diagnosis for this admission?: Yes (10) Benzodiazepine dependence, continuous Is this a current diagnosis for this admission?: Yes (11) Chronic pain Qualifiers: Chronic pain type: other chronic pain Qualified Code(s): G89.29 - Other chronic pain Is this a current diagnosis for this admission?: Yes (12) DVT prophylaxis Is this a current diagnosis for this admission?: Yes - Time Time Spent with patient: 25-34 minutes Medications reviewed and adjusted accordingly: Yes
[2016-08-01] MEDS: TOBRAMYCIN SULFATE NEB 40 MG/ML 30 ML NEB SCH (19:57)
[2016-08-01] MEDS: HYDRALAZINE HCL INJ/PF 20 MG/1 ML SDV IV PRN (20:18)
[2016-08-01] MEDS: HALOPERIDOL LACTATE INJ 5 MG/1 ML VIAL IV PRN (20:40)
[2016-08-01] MEDS: MONTELUKAST SODIUM 10 MG TABLET NG SCH (21:15)
[2016-08-01] MEDS: LORAZEPAM INJ 2 MG/1 ML VIAL IV PRN (21:15)
[2016-08-02] MEDS: PROPOFOL 100 ML IV PRN ×5 (00:14→22:22)
[2016-08-02] MEDS: LEVALBUTEROL HCL NEB 1.25 MG/3 ML AMPUL NEB SCH ×4 (02:18→20:34)
[2016-08-02] MEDS: PIPERACILLIN SODIUM/TAZOBACTAM 4.5 GM in NORMAL SALINE 100 ML IV SCH ×2 (02:35→08:27)
[2016-08-02] MEDS: GUAIFENESIN SYRP 200 MG/10 ML UDC NG SCH ×6 (02:35→21:24)
[2016-08-02] MEDS: MIDAZOLAM HCL 100 ML IV PRN ×2 (03:04→10:17)
[2016-08-02 04:56] LABS: HEMATOCRIT 31.6 % (36.0-47.0); HEMOGLOBIN 10.5 g/dL (12.0-15.5); HGB HCT DIFFERENCE -0.1; MEAN CORPUSCULAR HEMOGLOBIN 30.3 pg (27.0-33.4); MEAN CORPUSCULAR HGB CONC 33.3 g/dL (32.0-36.0); MEAN CORPUSCULAR VOLUME 91 fl (80-97); RED BLOOD COUNT 3.48 10^6/uL (3.72-5.28); RED CELL DISTRIBUTION WIDTH 15.4 % (11.5-14.0); WHITE BLOOD COUNT 10.1 10^3/uL (4.0-10.5)
[2016-08-02 05:15] LABS: BASOPHILS % (MANUAL) 0 % (0-2); EOSINOPHILS % (MANUAL) 0 % (0-6); LYMPHOCYTES % (MANUAL) 5 % (13-45); NUCLEATED RED BLOOD CELLS 1 /100 WBC (0); TOTAL CELLS COUNTED 100
[2016-08-02 05:16] LABS: ANISOCYTOSIS SLIGHT; TOXIC GRANULATION SLIGHT
[2016-08-02 05:24] LABS: ALANINE AMINOTRANSFERASE 41 U/L (9-52); ALKALINE PHOSPHATASE 57 U/L (38-126); ANION GAP 8 (5-19); ASPARTATE AMINO TRANSFERASE 18 U/L (14-36); BILIRUBIN,DIRECT 0.5 mg/dL (0.0-0.4); BILIRUBIN,TOTAL 0.6 mg/dL (0.2-1.3); BLOOD UREA NITROGEN 15 mg/dL (7-20); CALCIUM 7.9 mg/dL (8.4-10.2); CARBON DIOXIDE 29 mmol/L (22-30); CHLORIDE 107 mmol/L (98-107); CREATININE RESULT 0.59 mg/dL (0.52-1.25); GLUCOSE 146 mg/dL (75-110); MAGNESIUM 2.1 mg/dL (1.6-2.3); PHOSPHORUS 3.3 mg/dL (2.5-4.5); SODIUM 143.5 mmol/L (137-145); TOTAL PROTEIN 5.5 g/dL (6.3-8.2)
[2016-08-02] MEDS: METHYLPREDNISOLONE INJ 40 MG/1 ML SDV IV SCH ×3 (06:02→21:40)
[2016-08-02] MEDS: ALPRAZOLAM 0.5 MG TABLET NG SCH ×3 (06:02→21:24)
[2016-08-02 06:04] LABS: ARTERIAL BLOOD BASE EXCESS 1.4 mmol/L; ARTERIAL BLOOD O2 SATURATION 97.2 % (94-98)
--- NOTE | 2016-08-02 06:36 | RADIOLOGY REPORT (SQ) ---
EXAM DESCRIPTION: CHEST SINGLE VIEW COMPLETED DATE/TIME: 08/02/2016 6:03 am REASON FOR STUDY: resp fail COMPARISON: 08/01/2016. EXAM PARAMETERS: NUMBER OF VIEWS: One view. TECHNIQUE: Single frontal radiographic view of the chest acquired. RADIATION DOSE: NA LIMITATIONS: None. FINDINGS: LUNGS AND PLEURA: Small atelectasis or scar of the left mid lung field. Obscured right co stophrenic angle. MEDIASTINUM AND HILAR STRUCTURES: No masses. Contour normal. HEART AND VASCULAR STRUCTURES: Heart normal in size. Normal vasculature. BONES: Right rib deformity. HARDWARE: Adequate appearing endotracheal tube. Likely adequate nasogastric tube. Left electronic s timulation device in nuchal leads. Bilateral shoulder metallic anchors. OTHER: No other significant finding. IMPRESSION: No significant interval change. Lines and tubes. TECHNICAL DOCUMENTATION: JOB ID: [id number]
[2016-08-02] MEDS: HYDRALAZINE HCL INJ/PF 20 MG/1 ML SDV IV PRN ×3 (06:50→17:59)
[2016-08-02] MEDS: ENOXAPARIN SODIUM INJ 40 MG/0.4 ML DISP.SYRIN SUBCUT SCH (08:25)
[2016-08-02] MEDS: PHOSPHORUS #1 250 MG TABLET NG SCH ×4 (08:26→21:24)
[2016-08-02] MEDS: BUDESONIDE NEB 0.5 MG/2 ML AMPUL NEB SCH ×2 (08:26→20:35)
[2016-08-02] MEDS: TOBRAMYCIN SULFATE NEB 40 MG/ML 30 ML NEB SCH (08:26)
[2016-08-02] MEDS ORDERED: LEVALBUTEROL HCL NEB 1.25 MG/3 ML AMPUL NEB ONE ×2 (08:51→09:30)
[2016-08-02] MEDS ORDERED: DIPHENHYDRAMINE HCL 50 MG/ML VIAL ONE (08:52)
[2016-08-02] MEDS ORDERED: METHYLPREDNISOLONE INJ 40 MG/1 ML SDV ONE (08:52)
[2016-08-02] MEDS ORDERED: METHYLPREDNISOLONE INJ 40 MG/1 ML SDV IV ONE (09:00)
[2016-08-02] MEDS ORDERED: DIPHENHYDRAMINE HCL 50 MG/ML VIAL IV ONE (09:00)
[2016-08-02] MEDS ORDERED: CEFTRIAXONE 1 GM/D5W RTU 50 ML IV SCH (10:00)
[2016-08-02] MEDS: FERROUS SULFATE LIQUID 300 MG/5 ML UDC NG SCH ×3 (10:12→17:59)
[2016-08-02] MEDS: HYDROMORPHONE HCL INJ/PF 2 MG/ML AMPULE IV PRN ×2 (10:12→14:21)
[2016-08-02] MEDS: LORATADINE 10 MG TABLET NG SCH (10:13)
[2016-08-02] MEDS: MAGNESIUM OXIDE 400 MG TABLET NG SCH ×2 (10:13→18:00)
[2016-08-02] MEDS: FAMOTIDINE 20 MG TABLET NG SCH ×2 (10:13→21:24)
[2016-08-02] MEDS: FLUOXETINE HCL 20 MG/5 ML UDCUP NG SCH (10:13)
[2016-08-02] MEDS: NORMAL SALINE 1000 ML 1,000 ML IV PRN (10:50)
[2016-08-02] MEDS: INSULIN LISPRO 100 UNIT/ML 3 ML VIAL SUBCUT PRN ×2 (12:42→18:30)
[2016-08-02] MEDS: LORAZEPAM INJ 2 MG/1 ML VIAL IV PRN (18:30)
--- NOTE | 2016-08-02 20:08 | PDOC PROGRESS REPORT ---
Subjective Progress Note for:: 08/02/16 Subjective:: Unable to obtain review of systems secondary to patient's intubated status. patient began having tachypnea overnight. Patient continues to be tachypneic. On pressure support and somewhat Following commands. Physical Exam Vital Signs: Temp Pulse Resp BP Pulse Ox 98.6 F 89 23 H 136/68 H 97 08/02/16 19:37 08/02/16 19:37 08/02/16 19:37 08/02/16 19:37 08/02/16 19:37 Intake & Output 08/01/16 08/02/16 08/03/16 06:59 06:59 06:59 Intake Total 3948 2939 1224 Output Total 6881 3350 997 Balance -2902 -411 227 Weight 58.3 kg 58.2 kg Exam: General: Moderate respiratory distress, intubated and poorly sedated HEENT: AT/NC, PERRL, oropharynx is moist, pink, no scleral icterus, no conjunctival injection Neck: No JVD, trachea midline Chest: Bilateral wheezes, tachypnea, retractions CV: Tachycardia, regular rate and rhythm, normal S1 and S2, no murmur, rub, or gallop Abdomen: Soft, nontender to palpation, nondistended, hypoactive bowel sounds; no rebound, rigidity, or guarding Extremities: No cyanosis, clubbing or edema, large right hand ecchymosis Results Laboratory Results: 08/02/16 04:25 08/02/16 04:25 08/02/16 08/02/16 08/02/16 04:25 04:25 05:50 WBC 10.1 RBC 3.48 L Hgb 10.5 L Hct 31.6 L MCV 91 MCH 30.3 MCHC 33.3 RDW 15.4 H Plt Count 378 Seg Neutrophils % Not Reportable Lymphocytes % Not Reportable Monocytes % Not Reportable Eosinophils % Not Reportable Basophils % Not Reportable Absolute Neutrophils Not Reportable Absolute Lymphocytes Not Reportable Absolute Monocytes Not Reportable Absolute Eosinophils Not Reportable Absolute Basophils Not Reportable Carbonic Acid 1.19 HCO3/H2CO3 Ratio 21:1 ABG pH 7.43 ABG pCO2 39.5 ABG pO2 90.7 ABG HCO3 25.7 ABG O2 Saturation 97.2 ABG Base Excess 1.4 FiO2 40% Sodium 143.5 Potassium 4.0 Chloride 107 Carbon Dioxide 29 Anion Gap 8 BUN 15 Creatinine 0.59 Est GFR ( Amer) > 60 Est GFR (Non-Af Amer) > 60 Glucose 146 H Calcium 7.9 L Phosphorus 3.3 Magnesium 2.1 Total Bilirubin 0.6 AST 18 ALT 41 Alkaline Phosphatase 57 Total Protein 5.5 L Albumin 3.0 L 07/30/16 11:00 Tracheal Aspirate Gram Stain - Final 07/30/16 11:00 Tracheal Aspirate Sputum Culture - Final Staphylococcus Aureus Klebsiella Oxytoca Acinetobacter Baumannii/Haem Normal Sherry Absent Impressions: Chest/Abdomen CTA 07/28/16 00:00 IMPRESSION: 1. No PE. 2. COPD. Chest X-Ray 08/02/16 06:00 IMPRESSION: No significant interval change. Lines and tubes. Assessment & Plan - Diagnosis (1) COPD with exacerbation Is this a current diagnosis for this admission?: YesPlan: Patient did not appear to tolerate decrease in Solu-Medrol. We will re- increase this. Give a dose now of Solu-Medrol. Patient is currently growing Acinetobacter Leigha I, Klebsiella oxytoca, and staph aureus. Will transition patient to Unasyn based on sensitivity. (2) Hypophosphatemia Is this a current diagnosis for this admission?: YesPlan: This has improved and we will continue to monitor. (3) Acute hypoxemic respiratory failure Is this a current diagnosis for this admission?: YesPlan: Patient is currently intubated. Appreciate pulmonary input. (4) Depression Qualifiers: Depression Type: unspecified Qualified Code(s): F32.9 - Major depressive disorder, single episode, unspecified Is this a current diagnosis for this admission?: Yes (5) Opiate dependence, continuous Is this a current diagnosis for this admission?: YesPlan: We will resume patient's home fentanyl patch and Dilaudid. (6) Anemia Qualifiers: Anemia type: iron deficiency Iron deficiency anemia type: unspecified iron deficiency Qualified Code(s): D50.9 - Iron deficiency anemia, unspecified Is this a current diagnosis for this admission?: Yes (7) History of MRSA infection Is this a current diagnosis for this admission?: Yes (8) Tobacco use disorder Is this a current diagnosis for this admission?: Yes (9) GI Prophylaxis Is this a current diagnosis for this admission?: Yes (10) Benzodiazepine dependence, continuous Is this a current diagnosis for this admission?: Yes (11) Chronic pain Qualifiers: Chronic pain type: other chronic pain Qualified Code(s): G89.29 - Other chronic pain Is this a current diagnosis for this admission?: Yes (12) DVT prophylaxis Is this a current diagnosis for this admission?: Yes - Time Time Spent with patient: 25-34 minutes Medications reviewed and adjusted accordingly: Yes
[2016-08-02] MEDS: MONTELUKAST SODIUM 10 MG TABLET NG SCH (21:25)
[2016-08-03] MEDS: AMPICILLIN SODIUM/SULBACTAM NA 3 GM in NORMAL SALINE 100 ML IV SCH ×4 (00:15→17:09)
[2016-08-03] MEDS: GUAIFENESIN SYRP 200 MG/10 ML UDC NG SCH ×6 (01:17→21:49)
[2016-08-03] MEDS: HYDROMORPHONE HCL INJ/PF 2 MG/ML AMPULE IV PRN ×3 (02:00→20:17)
[2016-08-03] MEDS: PROPOFOL 100 ML IV PRN ×6 (02:10→22:28)
[2016-08-03] MEDS: LEVALBUTEROL HCL NEB 1.25 MG/3 ML AMPUL NEB SCH ×4 (02:19→19:55)
[2016-08-03 04:56] LABS: ALANINE AMINOTRANSFERASE 62 U/L (9-52); ALBUMIN 2.7 g/dL (3.5-5.0); ALKALINE PHOSPHATASE 51 U/L (38-126); ANION GAP 7 (5-19); ASPARTATE AMINO TRANSFERASE 21 U/L (14-36); BILIRUBIN,DIRECT 0.4 mg/dL (0.0-0.4); BILIRUBIN,TOTAL 0.4 mg/dL (0.2-1.3); BLOOD UREA NITROGEN 19 mg/dL (7-20); CALCIUM 7.9 mg/dL (8.4-10.2); CARBON DIOXIDE 28 mmol/L (22-30); CHLORIDE 108 mmol/L (98-107); CREATININE RESULT 0.55 mg/dL (0.52-1.25); GLUCOSE 165 mg/dL (75-110); MAGNESIUM 2.1 mg/dL (1.6-2.3); PHOSPHORUS 3.5 mg/dL (2.5-4.5); POTASSIUM 3.8 mmol/L (3.6-5.0); SODIUM 143.3 mmol/L (137-145); TOTAL PROTEIN 5.2 g/dL (6.3-8.2)
[2016-08-03 05:03] LABS: HEMATOCRIT 29.4 % (36.0-47.0); HEMOGLOBIN 9.7 g/dL (12.0-15.5); HGB HCT DIFFERENCE -0.3; MEAN CORPUSCULAR HEMOGLOBIN 30.2 pg (27.0-33.4); MEAN CORPUSCULAR HGB CONC 32.9 g/dL (32.0-36.0); MEAN CORPUSCULAR VOLUME 92 fl (80-97); RED CELL DISTRIBUTION WIDTH 15.5 % (11.5-14.0); WHITE BLOOD COUNT 8.3 10^3/uL (4.0-10.5)
[2016-08-03 05:16] LABS: BAND NEUTROPHILS % (MANUAL) 2 % (3-5); BASOPHILS % (MANUAL) 0 % (0-2); EOSINOPHILS % (MANUAL) 0 % (0-6); LYMPHOCYTES % (MANUAL) 7 % (13-45); TOTAL CELLS COUNTED 100
[2016-08-03] MEDS: ALPRAZOLAM 0.5 MG TABLET NG SCH ×3 (05:16→21:49)
[2016-08-03 05:17] LABS: ANISOCYTOSIS SLIGHT
[2016-08-03] MEDS: METHYLPREDNISOLONE INJ 40 MG/1 ML SDV IV SCH (05:17)
[2016-08-03 05:40] LABS: ARTERIAL BLOOD BASE EXCESS 3.8 mmol/L; ARTERIAL BLOOD O2 SATURATION 96.4 % (94-98)
[2016-08-03] MEDS: MIDAZOLAM HCL 100 ML IV PRN ×2 (05:44→15:24)
--- NOTE | 2016-08-03 07:01 | RADIOLOGY REPORT (SQ) ---
EXAM DESCRIPTION: CHEST SINGLE VIEW COMPLETED DATE/TIME: 08/03/2016 6:49 am REASON FOR STUDY: resp fail COMPARISON: 08/02/2016 EXAM PARAMETERS: NUMBER OF VIEWS: One view. TECHNIQUE: Single frontal radiographic view of the chest acquired. RADIATION DOSE: NA LIMITATIONS: None. FINDINGS: LUNGS AND PLEURA: Minimal linear densities are again identified left mid lung feel most co nsistent with subsegmental atelectasis. Visualized lung kamara are otherwise clear. Again there is some blunting of the right costophrenic angle which could represent pleural reaction or a tiny effusi on. I cannot exclude a component of obstructive lung disease. MEDIASTINUM AND HILAR STRUCTURES: No masses. Contour normal. HEART AND VASCULAR STRUCTURES: Heart normal in size. Normal vasculature. BONES: No acute findings. HARDWARE: Endotracheal tube is unchanged in position. NG tube is seen in course to the abdomen. Sti mulator device is again identified overlying the left upper hemithorax. OTHER: No other significant finding. IMPRESSION: No significant interval change. No acute findings. Other findings as noted above. TECHNICAL DOCUMENTATION: JOB ID: [id number]
[2016-08-03] MEDS: BUDESONIDE NEB 0.5 MG/2 ML AMPUL NEB SCH ×2 (07:58→19:55)
[2016-08-03] MEDS: PHOSPHORUS #1 250 MG TABLET NG SCH ×4 (08:34→21:49)
[2016-08-03] MEDS: ENOXAPARIN SODIUM INJ 40 MG/0.4 ML DISP.SYRIN SUBCUT SCH (08:36)
--- NOTE | 2016-08-03 09:05 | PDOC PROGRESS REPORT ---
Subjective Progress Note for:: 08/03/16 Subjective:: failed extubation due to tachypnea did not sustain a responce to Bi-PAP and was subsequuently reintubated Physical Exam Vital Signs: Temp Pulse Resp BP Pulse Ox 98.9 F 65 23 H 157/71 H 97 08/03/16 06:00 08/03/16 08:00 08/03/16 08:30 08/03/16 08:29 08/03/16 08:30 Intake & Output 08/02/16 08/03/16 08/04/16 06:59 06:59 06:59 Intake Total 2939 2341 Output Total 3350 1847 100 Balance -411 494 -100 Weight 58.2 kg 58.3 kg General appearance: PRESENT: no acute distress, disheveled, obese, well- developed Head exam: PRESENT: atraumatic, normocephalic Eye exam: PRESENT: conjunctiva pale Mouth exam: PRESENT: dry mucosa, neck supple, other - ET tube Neck exam: ABSENT: carotid bruit, JVD, lymphadenopathy, thyromegaly Respiratory exam: PRESENT: decreased breath sounds, prolonged expiratory phas, rhonchi, symmetrical, unlabored, other Cardiovascular exam: PRESENT: RRR, +S1, +S2 Pulses: PRESENT: normal radial pulses GI/Abdominal exam: PRESENT: normal bowel sounds, soft. ABSENT: distended, guarding, mass, organolmegaly, rebound, tenderness Rectal exam: PRESENT: deferred Gentrourinary exam: PRESENT: indwelling catheter Musculoskeletal exam: PRESENT: normal inspection Skin exam: PRESENT: dry, warm Results Laboratory Results: 08/03/16 04:14 08/03/16 04:14 08/03/16 08/03/16 08/03/16 04:14 04:14 05:30 WBC 8.3 RBC 3.20 L Hgb 9.7 L Hct 29.4 L MCV 92 MCH 30.2 MCHC 32.9 RDW 15.5 H Plt Count 374 Seg Neutrophils % Not Reportable Lymphocytes % Not Reportable Monocytes % Not Reportable Eosinophils % Not Reportable Basophils % Not Reportable Absolute Neutrophils Not Reportable Absolute Lymphocytes Not Reportable Absolute Monocytes Not Reportable Absolute Eosinophils Not Reportable Absolute Basophils Not Reportable Carbonic Acid 1.24 HCO3/H2CO3 Ratio 22:1 ABG pH 7.45 ABG pCO2 41.2 ABG pO2 81.5 ABG HCO3 28.1 H ABG O2 Saturation 96.4 ABG Base Excess 3.8 FiO2 40% Sodium 143.3 Potassium 3.8 Chloride 108 H Carbon Dioxide 28 Anion Gap 7 BUN 19 Creatinine 0.55 Est GFR ( Amer) > 60 Est GFR (Non-Af Amer) > 60 Glucose 165 H Calcium 7.9 L Phosphorus 3.5 Magnesium 2.1 Total Bilirubin 0.4 AST 21 ALT 62 H Alkaline Phosphatase 51 Total Protein 5.2 L Albumin 2.7 L 07/28/16 22:48 Blood Blood Culture - Final NO GROWTH IN 5 DAYS 07/30/16 11:00 Tracheal Aspirate Gram Stain - Final 07/30/16 11:00 Tracheal Aspirate Sputum Culture - Final Staphylococcus Aureus Klebsiella Oxytoca Acinetobacter Baumannii/Haem Normal Sherry Absent Impressions: Chest/Abdomen CTA 07/28/16 00:00 IMPRESSION: 1. No PE. 2. COPD. Chest X-Ray 08/03/16 06:00 IMPRESSION: No significant interval change. No acute findings. Other findings as noted above. Assessment & Plan - Diagnosis (1) COPD (chronic obstructive pulmonary disease) Qualifiers: COPD type: unspecified COPD Qualified Code(s): J44.9 - Chronic obstructive pulmonary disease, unspecified Is this a current diagnosis for this admission?: YesPlan: Multiple bacteria from his endotracheal aspirate no radiographic evidence of pneumonia per radiology (2) Hypoxemia Is this a current diagnosis for this admission?: No (3) Respiratory distress Is this a current diagnosis for this admission?: YesPlan: increased WOB acute onset most likely due to an aspiration pneumonitis; at this time afebrile, without radiographic evidence of pneumonia,no leucocytosis despite steroids; aspiration pneumonitis may develope into fulll blown aspiration pneumonia;however I see no criteria to meet diagnosis of VAP (4) Tobacco use disorder Is this a current diagnosis for this admission?: Yes (5) Acute hypoxemic respiratory failure Is this a current diagnosis for this admission?: Yes - Time Critical Time spent with patient: 35 or more minutes
[2016-08-03] MEDS: MAGNESIUM OXIDE 400 MG TABLET NG SCH ×2 (09:47→17:08)
[2016-08-03] MEDS: FENTANYL 75 MCG/HR PATCH.TD72 TD SCH (09:47)
[2016-08-03] MEDS: FAMOTIDINE 20 MG TABLET NG SCH (09:47)
[2016-08-03] MEDS: FERROUS SULFATE LIQUID 300 MG/5 ML UDC NG SCH ×3 (09:48→17:08)
[2016-08-03] MEDS: LORATADINE 10 MG TABLET NG SCH (09:48)
[2016-08-03] MEDS: FLUOXETINE HCL 20 MG/5 ML UDCUP NG SCH (09:49)
[2016-08-03] MEDS ORDERED: LEVALBUTEROL HCL NEB 0.63 MG/3 ML AMPUL NEB PRN (10:29)
--- NOTE | 2016-08-03 10:38 | PDOC PROGRESS REPORT ---
Subjective Progress Note for:: 08/02/16 Subjective:: Intubated sedated but highly agitated Physical Exam Vital Signs: Temp Pulse Resp BP Pulse Ox 99.0 F 96 28 H 156/70 H 98 08/02/16 07:53 08/02/16 07:53 08/02/16 07:53 08/02/16 07:53 08/02/16 07:53 Intake & Output 08/01/16 08/02/16 08/03/16 06:59 06:59 06:59 Intake Total 3948 2939 Output Total 6850 3350 37 Balance -2902 -411 -37 Weight 58.3 kg 58.2 kg General appearance: PRESENT: disheveled, obese, well-developed Head exam: PRESENT: atraumatic, normocephalic Eye exam: PRESENT: conjunctiva pale Mouth exam: PRESENT: dry mucosa, neck supple, other - ET tube in place Neck exam: ABSENT: carotid bruit, JVD, lymphadenopathy, thyromegaly Respiratory exam: PRESENT: decreased breath sounds, prolonged expiratory phas, rhonchi, symmetrical, unlabored Cardiovascular exam: PRESENT: RRR, +S1, +S2 Pulses: PRESENT: normal radial pulses GI/Abdominal exam: PRESENT: normal bowel sounds, soft. ABSENT: distended, guarding, mass, organolmegaly, rebound, tenderness Rectal exam: PRESENT: deferred Gentrourinary exam: PRESENT: indwelling catheter Musculoskeletal exam: PRESENT: normal inspection Neurological exam: PRESENT: altered Psychiatric exam: PRESENT: agitated Skin exam: PRESENT: dry, warm Results Laboratory Results: 08/02/16 04:25 08/02/16 04:25 08/01/16 08/02/16 08/02/16 15:59 04:25 04:25 WBC 10.1 RBC 3.48 L Hgb 10.5 L Hct 31.6 L MCV 91 MCH 30.3 MCHC 33.3 RDW 15.4 H Plt Count 378 Seg Neutrophils % Not Reportable Lymphocytes % Not Reportable Monocytes % Not Reportable Eosinophils % Not Reportable Basophils % Not Reportable Absolute Neutrophils Not Reportable Absolute Lymphocytes Not Reportable Absolute Monocytes Not Reportable Absolute Eosinophils Not Reportable Absolute Basophils Not Reportable Carbonic Acid HCO3/H2CO3 Ratio ABG pH ABG pCO2 ABG pO2 ABG HCO3 ABG O2 Saturation ABG Base Excess FiO2 Sodium 141.4 143.5 Potassium 4.2 4.0 Chloride 108 H 107 Carbon Dioxide 26 29 Anion Gap 7 8 BUN 13 15 Creatinine 0.53 0.59 Est GFR ( Amer) > 60 > 60 Est GFR (Non-Af Amer) > 60 > 60 Glucose 163 H 146 H Calcium 7.6 L 7.9 L Phosphorus 3.3 3.3 Magnesium 2.1 2.1 Total Bilirubin 0.6 AST 18 ALT 41 Alkaline Phosphatase 57 Total Protein 5.5 L Albumin 3.0 L 08/02/16 05:50 WBC RBC Hgb Hct MCV MCH MCHC RDW Plt Count Seg Neutrophils % Lymphocytes % Monocytes % Eosinophils % Basophils % Absolute Neutrophils Absolute Lymphocytes Absolute Monocytes Absolute Eosinophils Absolute Basophils Carbonic Acid 1.19 HCO3/H2CO3 Ratio 21:1 ABG pH 7.43 ABG pCO2 39.5 ABG pO2 90.7 ABG HCO3 25.7 ABG O2 Saturation 97.2 ABG Base Excess 1.4 FiO2 40% Sodium Potassium Chloride Carbon Dioxide Anion Gap BUN Creatinine Est GFR ( Amer) Est GFR (Non-Af Amer) Glucose Calcium Phosphorus Magnesium Total Bilirubin AST ALT Alkaline Phosphatase Total Protein Albumin Impressions: Chest/Abdomen CTA 07/28/16 00:00 IMPRESSION: 1. No PE. 2. COPD. Chest X-Ray 08/02/16 06:00 IMPRESSION: No significant interval change. Lines and tubes. Assessment & Plan - Diagnosis (1) COPD (chronic obstructive pulmonary disease) Qualifiers: COPD type: unspecified COPD Qualified Code(s): J44.9 - Chronic obstructive pulmonary disease, unspecified Is this a current diagnosis for this admission?: Yes (2) Hypoxemia Is this a current diagnosis for this admission?: No (3) Respiratory distress Is this a current diagnosis for this admission?: Yes (4) Tobacco use disorder Is this a current diagnosis for this admission?: Yes - Time Critical Time spent with patient: 25-34 minutes
[2016-08-03] MEDS ORDERED: PANTOPRAZOLE SODIUM 40 MG VIAL IV ONE (11:30)
[2016-08-03] MEDS: METHYLPREDNISOLONE INJ 125 MG/2 ML SDV IV SCH ×2 (11:33→17:08)
[2016-08-03] MEDS: SUCRALFATE SUSP 1 GM/10 ML UDCUP NG SCH ×2 (11:34→17:09)
[2016-08-03] MEDS: HYDRALAZINE HCL INJ/PF 20 MG/1 ML SDV IV PRN (11:55)
--- NOTE | 2016-08-03 17:20 | PDOC PROGRESS REPORT ---
Subjective Progress Note for:: 08/03/16 Subjective:: Nursing reports overnight the patient had a large tarry stool. Unable to obtain review of systems secondary to intubated and sedated status. Physical Exam Vital Signs: Temp Pulse Resp BP Pulse Ox 98.5 F 101 H 21 H 146/72 H 96 08/03/16 14:00 08/03/16 14:00 08/03/16 15:30 08/03/16 14:51 08/03/16 16:24 Intake & Output 08/02/16 08/03/16 08/04/16 06:59 06:59 06:59 Intake Total 2939 2341 Output Total 3350 1847 750 Balance -411 494 -750 Weight 58.2 kg 58.3 kg Exam: General: intubated and sedated HEENT: AT/NC, PERRL, oropharynx is moist, pink, no scleral icterus, no conjunctival injection Neck: No JVD, trachea midline Chest: Bilateral wheezes CV: Tachycardia, regular rate and rhythm, normal S1 and S2, no murmur, rub, or gallop Abdomen: Soft, nontender to palpation, nondistended, hyperactive bowel sounds; no rebound, rigidity, or guarding Extremities: No cyanosis, clubbing or edema, large right hand ecchymosis Results Laboratory Results: 08/03/16 04:14 08/03/16 04:14 08/03/16 08/03/16 08/03/16 04:14 04:14 05:30 WBC 8.3 RBC 3.20 L Hgb 9.7 L Hct 29.4 L MCV 92 MCH 30.2 MCHC 32.9 RDW 15.5 H Plt Count 374 Seg Neutrophils % Not Reportable Lymphocytes % Not Reportable Monocytes % Not Reportable Eosinophils % Not Reportable Basophils % Not Reportable Absolute Neutrophils Not Reportable Absolute Lymphocytes Not Reportable Absolute Monocytes Not Reportable Absolute Eosinophils Not Reportable Absolute Basophils Not Reportable Carbonic Acid 1.24 HCO3/H2CO3 Ratio 22:1 ABG pH 7.45 ABG pCO2 41.2 ABG pO2 81.5 ABG HCO3 28.1 H ABG O2 Saturation 96.4 ABG Base Excess 3.8 FiO2 40% Sodium 143.3 Potassium 3.8 Chloride 108 H Carbon Dioxide 28 Anion Gap 7 BUN 19 Creatinine 0.55 Est GFR ( Amer) > 60 Est GFR (Non-Af Amer) > 60 Glucose 165 H Calcium 7.9 L Phosphorus 3.5 Magnesium 2.1 Total Bilirubin 0.4 AST 21 ALT 62 H Alkaline Phosphatase 51 Total Protein 5.2 L Albumin 2.7 L Stool Occult Blood 08/03/16 10:45 WBC RBC Hgb Hct MCV MCH MCHC RDW Plt Count Seg Neutrophils % Lymphocytes % Monocytes % Eosinophils % Basophils % Absolute Neutrophils Absolute Lymphocytes Absolute Monocytes Absolute Eosinophils Absolute Basophils Carbonic Acid HCO3/H2CO3 Ratio ABG pH ABG pCO2 ABG pO2 ABG HCO3 ABG O2 Saturation ABG Base Excess FiO2 Sodium Potassium Chloride Carbon Dioxide Anion Gap BUN Creatinine Est GFR ( Amer) Est GFR (Non-Af Amer) Glucose Calcium Phosphorus Magnesium Total Bilirubin AST ALT Alkaline Phosphatase Total Protein Albumin Stool Occult Blood POSITIVE 07/28/16 22:48 Blood Blood Culture - Final NO GROWTH IN 5 DAYS 07/30/16 11:00 Tracheal Aspirate Gram Stain - Final 07/30/16 11:00 Tracheal Aspirate Sputum Culture - Final Staphylococcus Aureus Klebsiella Oxytoca Acinetobacter Baumannii/Haem Normal Sherry Absent Impressions: Chest/Abdomen CTA 07/28/16 00:00 IMPRESSION: 1. No PE. 2. COPD. Chest X-Ray 08/03/16 06:00 IMPRESSION: No significant interval change. No acute findings. Other findings as noted above. Assessment & Plan - Diagnosis (1) Heme positive stool Is this a current diagnosis for this admission?: YesPlan: For GI bleed. Discussion with patient's significant other reveals that she was taking in addition to Zantac also Prilosec and has been taking copious amounts of Mylanta prior to admission. Patient has been on GI prophylaxis here, but will transition to IV Protonix and add Carafate. We will continue to monitor her H&H and type and screen (2) VAP (ventilator-associated pneumonia) Is this a current diagnosis for this admission?: YesPlan: Meets clinical criteria for ventilator associated pneumonia given her culture results, FiO2 PaO2 ratio, normal development of increased amount of purulent sputum within 48 hours of intubation. (3) COPD with exacerbation Is this a current diagnosis for this admission?: YesPlan: Increase solu Medrol to 80mg iv q6 Patient is currently growing Acinetobacter Leigha I, Klebsiella oxytoca, and staph aureus. Will transition patient to Unasyn based on sensitivity. (4) Hypophosphatemia Is this a current diagnosis for this admission?: YesPlan: This has improved and we will continue to monitor. (5) Acute hypoxemic respiratory failure Is this a current diagnosis for this admission?: YesPlan: Patient is currently intubated. Appreciate pulmonary input. (6) Depression Qualifiers: Depression Type: unspecified Qualified Code(s): F32.9 - Major depressive disorder, single episode, unspecified Is this a current diagnosis for this admission?: YesPlan: Continue Prozac (7) Opiate dependence, continuous Is this a current diagnosis for this admission?: YesPlan: We will resume patient's home fentanyl patch and Dilaudid. (8) Anemia Qualifiers: Anemia type: iron deficiency Iron deficiency anemia type: unspecified iron deficiency Qualified Code(s): D50.9 - Iron deficiency anemia, unspecified Is this a current diagnosis for this admission?: Yes (9) History of MRSA infection Is this a current diagnosis for this admission?: Yes (10) Tobacco use disorder Is this a current diagnosis for this admission?: Yes (11) GI Prophylaxis Is this a current diagnosis for this admission?: Yes (12) Benzodiazepine dependence, continuous Is this a current diagnosis for this admission?: Yes (13) Chronic pain Qualifiers: Chronic pain type: other chronic pain Qualified Code(s): G89.29 - Other chronic pain Is this a current diagnosis for this admission?: Yes (14) DVT prophylaxis Is this a current diagnosis for this admission?: YesPlan: On colin hose and SCDs hold lovenox - Time Time Spent with patient: 25-34 minutes Medications reviewed and adjusted accordingly: Yes
[2016-08-03 17:25] LABS: HEMATOCRIT 28.7 % (36.0-47.0); HEMOGLOBIN 9.4 g/dL (12.0-15.5); HGB HCT DIFFERENCE -0.5; MEAN CORPUSCULAR HEMOGLOBIN 30.1 pg (27.0-33.4); MEAN CORPUSCULAR HGB CONC 32.8 g/dL (32.0-36.0); MEAN CORPUSCULAR VOLUME 92 fl (80-97); RED BLOOD COUNT 3.13 10^6/uL (3.72-5.28); RED CELL DISTRIBUTION WIDTH 15.7 % (11.5-14.0); WHITE BLOOD COUNT 7.1 10^3/uL (4.0-10.5)
[2016-08-03 17:43] LABS: BASOPHILS % (MANUAL) 0 % (0-2); EOSINOPHILS % (MANUAL) 0 % (0-6); LYMPHOCYTES % (MANUAL) 6 % (13-45); TOTAL CELLS COUNTED 100
[2016-08-03 17:44] LABS: ANISOCYTOSIS SLIGHT; HYPOCHROMASIA SLIGHT
[2016-08-03] MEDS: INSULIN LISPRO 100 UNIT/ML 3 ML VIAL SUBCUT PRN (18:01)
[2016-08-03] MEDS: MONTELUKAST SODIUM 10 MG TABLET NG SCH (21:49)
[2016-08-03] MEDS: PANTOPRAZOLE SODIUM 40 MG VIAL IV SCH (21:49)
[2016-08-04] MEDS: AMPICILLIN SODIUM/SULBACTAM NA 3 GM in NORMAL SALINE 100 ML IV SCH ×4 (00:05→17:56)
[2016-08-04] MEDS: MIDAZOLAM HCL 100 ML IV PRN ×3 (00:05→21:09)
[2016-08-04] MEDS: METHYLPREDNISOLONE INJ 125 MG/2 ML SDV IV SCH ×4 (00:07→17:56)
[2016-08-04] MEDS: SUCRALFATE SUSP 1 GM/10 ML UDCUP NG SCH ×4 (00:09→17:55)
[2016-08-04] MEDS: INSULIN LISPRO 100 UNIT/ML 3 ML VIAL SUBCUT PRN ×2 (00:28→18:56)
[2016-08-04] MEDS: HYDRALAZINE HCL INJ/PF 20 MG/1 ML SDV IV PRN ×2 (01:08→13:09)
[2016-08-04] MEDS: GUAIFENESIN SYRP 200 MG/10 ML UDC NG SCH ×6 (01:12→22:02)
[2016-08-04] MEDS: PROPOFOL 100 ML IV PRN ×5 (02:30→22:23)
[2016-08-04] MEDS: LEVALBUTEROL HCL NEB 1.25 MG/3 ML AMPUL NEB SCH ×4 (03:16→20:06)
[2016-08-04] MEDS: HYDROMORPHONE HCL INJ/PF 2 MG/ML AMPULE IV PRN ×4 (04:08→19:38)
[2016-08-04 04:12] LABS: HEMATOCRIT 32.7 % (36.0-47.0); HEMOGLOBIN 10.6 g/dL (12.0-15.5); HGB HCT DIFFERENCE -0.9; MEAN CORPUSCULAR HEMOGLOBIN 29.8 pg (27.0-33.4); MEAN CORPUSCULAR HGB CONC 32.5 g/dL (32.0-36.0); MEAN CORPUSCULAR VOLUME 92 fl (80-97); RED BLOOD COUNT 3.57 10^6/uL (3.72-5.28); WHITE BLOOD COUNT 7.8 10^3/uL (4.0-10.5)
[2016-08-04 04:24] LABS: ALANINE AMINOTRANSFERASE 71 U/L (9-52); ALBUMIN 3.2 g/dL (3.5-5.0); ALKALINE PHOSPHATASE 58 U/L (38-126); ANION GAP 11 (5-19); ASPARTATE AMINO TRANSFERASE 22 U/L (14-36); BILIRUBIN,DIRECT 0.4 mg/dL (0.0-0.4); BILIRUBIN,TOTAL 0.5 mg/dL (0.2-1.3); BLOOD UREA NITROGEN 18 mg/dL (7-20); CALCIUM 8.5 mg/dL (8.4-10.2); CARBON DIOXIDE 29 mmol/L (22-30); CHLORIDE 105 mmol/L (98-107); CREATININE RESULT 0.46 mg/dL (0.52-1.25); GLUCOSE 150 mg/dL (75-110); POTASSIUM 3.4 mmol/L (3.6-5.0); TOTAL PROTEIN 5.5 g/dL (6.3-8.2)
[2016-08-04 04:33] LABS: BASOPHILS % (MANUAL) 0 % (0-2); EOSINOPHILS % (MANUAL) 0 % (0-6); LYMPHOCYTES % (MANUAL) 6 % (13-45); TOTAL CELLS COUNTED 100
[2016-08-04 04:35] LABS: ANISOCYTOSIS 1+; OVALOCYTES SLIGHT; POIKILOCYTOSIS SLIGHT
[2016-08-04 05:18] LABS: ARTERIAL BLOOD BASE EXCESS 5.8 mmol/L; ARTERIAL BLOOD O2 SATURATION 95.6 % (94-98)
[2016-08-04] MEDS: ALPRAZOLAM 0.5 MG TABLET NG SCH ×3 (05:20→22:02)
[2016-08-04] MEDS ORDERED: METHYLPREDNISOLONE INJ 125 MG/2 ML SDV ONE (05:33)
--- NOTE | 2016-08-04 07:17 | RADIOLOGY REPORT (SQ) ---
EXAM DESCRIPTION: CHEST SINGLE VIEW COMPLETED DATE/TIME: 08/04/2016 7:04 am REASON FOR STUDY: Resp Failure COMPARISON: 08/03/2016 NUMBER OF VIEWS: One view. TECHNIQUE: Single frontal radiographic image of the chest acquired. LIMITATIONS: None. FINDINGS: LUNGS AND PLEURA: Stable appearance. MEDIASTINUM AND HILAR STRUCTURES: Stable heart size and mediastinal structures. HEART AND VASCULAR STRUCTURES: Stable appearance. SUPPORT DEVICES: Appropriate location without change. BONES: No acute findings. OTHER: No other significant finding. IMPRESSION: STABLE APPEARANCE OF THE CHEST. SUPPORT DEVICES UNCHANGED. TECHNICAL DOCUMENTATION: JOB ID: [id number] [employer]- All Rights Reserved
[2016-08-04] MEDS: BUDESONIDE NEB 0.5 MG/2 ML AMPUL NEB SCH ×2 (08:13→20:06)
[2016-08-04] MEDS: FERROUS SULFATE LIQUID 300 MG/5 ML UDC NG SCH ×3 (09:07→17:55)
[2016-08-04] MEDS: MAGNESIUM OXIDE 400 MG TABLET NG SCH ×2 (09:07→17:56)
[2016-08-04] MEDS: LORATADINE 10 MG TABLET NG SCH (09:07)
[2016-08-04] MEDS: PHOSPHORUS #1 250 MG TABLET NG SCH ×4 (09:07→22:02)
[2016-08-04] MEDS: FLUOXETINE HCL 20 MG/5 ML UDCUP NG SCH (09:08)
[2016-08-04] MEDS: PANTOPRAZOLE SODIUM 40 MG VIAL IV SCH ×2 (09:08→22:02)
[2016-08-04] MEDS: FENTANYL 75 MCG/HR PATCH.TD72 TD SCH (09:22)
[2016-08-04] MEDS ORDERED: POTASSIUM CHLORIDE 20 MEQ/15 ML UDCUP NG ONE (10:00)
--- NOTE | 2016-08-04 11:01 | Operative Report ---
Operative Report DATE OF SURGERY: 08/04/16 PREOPERATIVE DIAGNOSIS: COPD exacerbation POSTOPERATIVE DIAGNOSIS: Same OPERATION: 1. Focused ultrasound of the right neck. 2. Ultrasound directed insertion of triple-lumen central venous access catheter right internal jugular vein SURGEON: DHAVAL LADD ANESTHESIA: Local TISSUE REMOVED OR ALTERED: None COMPLICATIONS: None ESTIMATED BLOOD LOSS: Minimal INTRAOPERATIVE FINDINGS: See below PROCEDURE: Patient was placed in a Trendelenburg position right neck and chest wall prepped draped sterile fashion. Surgical plane surgical timeout was conducted. Right neck was scanned with a variable frequency linear transducer. Findings were significant for a suitable caliber, compressible right internal jugular vein. Skin was anesthetized with percent lidocaine with epinephrine. Using Seldinger technique, under direct ultrasound guidance, a triple-lumen centimeters threaded into the right internal jugular vein without difficulty. There is excellent blood flow through all 3 lm catheter flushed with saline and secured to the skin with 2-0 silk suture and a Biopatch. Sterile dressing was applied. Portable upright chest x-ray pending at time of dictation.
--- NOTE | 2016-08-04 11:50 | RADIOLOGY REPORT (SQ) ---
EXAM DESCRIPTION: CHEST SINGLE VIEW COMPLETED DATE/TIME: 08/04/2016 11:27 am REASON FOR STUDY: Status post CVP placement COMPARISON: None. EXAM PARAMETERS: NUMBER OF VIEWS: One view. TECHNIQUE: Single frontal radiographic view of the chest acquired. RADIATION DOSE: NA LIMITATIONS: None. FINDINGS: LUNGS AND PLEURA: No opacities, masses or pneumothorax. No pleural effusion. MEDIASTINUM AND HILAR STRUCTURES: No masses. Contour normal. HEART AND VASCULAR STRUCTURES: Heart normal in size. Normal vasculature. BONES: No acute findings. Old deformity of the right 5th rib. HARDWARE: Central line on the right side with the tip located at the level of the right atrium. Stab le endotracheal tube and nasogastric tube stimulator device and hardware in both shoulders. OTHER: No other significant finding. IMPRESSION: NO PNEUMOTHORAX FOLLOWING CENTRAL LINE PLACEMENT. TECHNICAL DOCUMENTATION: JOB ID: [id number]
--- NOTE | 2016-08-04 17:56 | PDOC PROGRESS REPORT ---
Subjective Progress Note for:: 08/04/16 Subjective:: intubated and sedated Physical Exam Vital Signs: Temp Pulse Resp BP Pulse Ox 98.0 F 67 10 L 153/66 H 97 08/04/16 10:00 08/04/16 10:00 08/04/16 10:00 08/04/16 10:00 08/04/16 10:00 Intake & Output 08/03/16 08/04/16 08/05/16 06:59 06:59 06:59 Intake Total 2341 2427 Output Total 1847 1870 290 Balance 494 557 -290 Weight 58.3 kg 61.8 kg 60.9 kg General appearance: PRESENT: no acute distress, disheveled, obese, well- developed Head exam: PRESENT: atraumatic, normocephalic Eye exam: PRESENT: conjunctiva pale Mouth exam: PRESENT: dry mucosa, neck supple, other - ET tube Neck exam: ABSENT: carotid bruit, JVD, lymphadenopathy, thyromegaly Respiratory exam: PRESENT: decreased breath sounds - greater at bases, prolonged expiratory phas, rhonchi, symmetrical, unlabored Cardiovascular exam: PRESENT: RRR, +S1, +S2 Pulses: PRESENT: normal dorsalis pedis pul GI/Abdominal exam: PRESENT: normal bowel sounds, soft. ABSENT: distended, guarding, mass, organolmegaly, rebound, tenderness Rectal exam: PRESENT: deferred Gentrourinary exam: PRESENT: indwelling catheter Skin exam: PRESENT: dry, warm Results Laboratory Results: 08/04/16 03:54 08/04/16 03:54 08/03/16 08/03/16 08/04/16 10:45 17:17 03:54 WBC 7.1 7.8 RBC 3.13 L 3.57 L Hgb 9.4 L 10.6 L Hct 28.7 L 32.7 L MCV 92 92 MCH 30.1 29.8 MCHC 32.8 32.5 RDW 15.7 H 16.0 H Plt Count 327 373 Seg Neutrophils % Not Reportable Not Reportable Lymphocytes % Not Reportable Not Reportable Monocytes % Not Reportable Not Reportable Eosinophils % Not Reportable Not Reportable Basophils % Not Reportable Not Reportable Absolute Neutrophils Not Reportable Not Reportable Absolute Lymphocytes Not Reportable Not Reportable Absolute Monocytes Not Reportable Not Reportable Absolute Eosinophils Not Reportable Not Reportable Absolute Basophils Not Reportable Not Reportable Carbonic Acid HCO3/H2CO3 Ratio ABG pH ABG pCO2 ABG pO2 ABG HCO3 ABG O2 Saturation ABG Base Excess FiO2 Sodium Potassium Chloride Carbon Dioxide Anion Gap BUN Creatinine Est GFR ( Amer) Est GFR (Non-Af Amer) Glucose Calcium Total Bilirubin AST ALT Alkaline Phosphatase Total Protein Albumin Stool Occult Blood POSITIVE 08/04/16 08/04/16 03:54 05:05 WBC RBC Hgb Hct MCV MCH MCHC RDW Plt Count Seg Neutrophils % Lymphocytes % Monocytes % Eosinophils % Basophils % Absolute Neutrophils Absolute Lymphocytes Absolute Monocytes Absolute Eosinophils Absolute Basophils Carbonic Acid 1.50 H HCO3/H2CO3 Ratio 20:1 ABG pH 7.42 ABG pCO2 49.8 H ABG pO2 78.4 L ABG HCO3 31.2 H ABG O2 Saturation 95.6 ABG Base Excess 5.8 FiO2 40% Sodium 145.0 Potassium 3.4 L Chloride 105 Carbon Dioxide 29 Anion Gap 11 BUN 18 Creatinine 0.46 L Est GFR ( Amer) > 60 Est GFR (Non-Af Amer) > 60 Glucose 150 H Calcium 8.5 Total Bilirubin 0.5 AST 22 ALT 71 H Alkaline Phosphatase 58 Total Protein 5.5 L Albumin 3.2 L Stool Occult Blood Impressions: Chest/Abdomen CTA 07/28/16 00:00 IMPRESSION: 1. No PE. 2. COPD. Chest X-Ray 08/04/16 06:00 IMPRESSION: STABLE APPEARANCE OF THE CHEST. SUPPORT DEVICES UNCHANGED. Assessment & Plan - Diagnosis (1) COPD (chronic obstructive pulmonary disease) Qualifiers: COPD type: unspecified COPD Qualified Code(s): J44.9 - Chronic obstructive pulmonary disease, unspecified Is this a current diagnosis for this admission?: Yes (2) Hypoxemia Is this a current diagnosis for this admission?: No (3) Respiratory distress Is this a current diagnosis for this admission?: Yes (4) Tobacco use disorder Is this a current diagnosis for this admission?: Yes - Time Critical Time spent with patient: 35 or more minutes
--- NOTE | 2016-08-04 18:04 | PDOC PROGRESS REPORT ---
Subjective Progress Note for:: 08/04/16 Subjective:: Acute events overnight. Patient continues to have night only residuals. Unable to obtain review of systems secondary to intubated and sedated status. Physical Exam Vital Signs: Temp Pulse Resp BP Pulse Ox 98.0 F 63 12 162/60 H 97 08/04/16 07:50 08/04/16 07:50 08/04/16 07:50 08/04/16 07:50 08/04/16 07:50 Intake & Output 08/03/16 08/04/16 08/05/16 06:59 06:59 06:59 Intake Total 2341 2427 Output Total 1847 1870 100 Balance 494 557 -100 Weight 58.3 kg 61.8 kg Exam: General: intubated and sedated HEENT: AT/NC, PERRL, oropharynx is moist, pink, no scleral icterus, no conjunctival injection Neck: No JVD, trachea midline Chest: Left lung upper and lower wheezes CV: Tachycardia, regular rate and rhythm, normal S1 and S2, no murmur, rub, or gallop Abdomen: Soft, nontender to palpation, nondistended, hyperactive bowel sounds; no rebound, rigidity, or guarding Extremities: No cyanosis, clubbing or edema, large right hand ecchymosis Results Laboratory Results: 08/04/16 03:54 08/04/16 03:54 08/03/16 08/03/16 08/04/16 10:45 17:17 03:54 WBC 7.1 7.8 RBC 3.13 L 3.57 L Hgb 9.4 L 10.6 L Hct 28.7 L 32.7 L MCV 92 92 MCH 30.1 29.8 MCHC 32.8 32.5 RDW 15.7 H 16.0 H Plt Count 327 373 Seg Neutrophils % Not Reportable Not Reportable Lymphocytes % Not Reportable Not Reportable Monocytes % Not Reportable Not Reportable Eosinophils % Not Reportable Not Reportable Basophils % Not Reportable Not Reportable Absolute Neutrophils Not Reportable Not Reportable Absolute Lymphocytes Not Reportable Not Reportable Absolute Monocytes Not Reportable Not Reportable Absolute Eosinophils Not Reportable Not Reportable Absolute Basophils Not Reportable Not Reportable Carbonic Acid HCO3/H2CO3 Ratio ABG pH ABG pCO2 ABG pO2 ABG HCO3 ABG O2 Saturation ABG Base Excess FiO2 Sodium Potassium Chloride Carbon Dioxide Anion Gap BUN Creatinine Est GFR ( Amer) Est GFR (Non-Af Amer) Glucose Calcium Total Bilirubin AST ALT Alkaline Phosphatase Total Protein Albumin Stool Occult Blood POSITIVE 08/04/16 08/04/16 03:54 05:05 WBC RBC Hgb Hct MCV MCH MCHC RDW Plt Count Seg Neutrophils % Lymphocytes % Monocytes % Eosinophils % Basophils % Absolute Neutrophils Absolute Lymphocytes Absolute Monocytes Absolute Eosinophils Absolute Basophils Carbonic Acid 1.50 H HCO3/H2CO3 Ratio 20:1 ABG pH 7.42 ABG pCO2 49.8 H ABG pO2 78.4 L ABG HCO3 31.2 H ABG O2 Saturation 95.6 ABG Base Excess 5.8 FiO2 40% Sodium 145.0 Potassium 3.4 L Chloride 105 Carbon Dioxide 29 Anion Gap 11 BUN 18 Creatinine 0.46 L Est GFR ( Amer) > 60 Est GFR (Non-Af Amer) > 60 Glucose 150 H Calcium 8.5 Total Bilirubin 0.5 AST 22 ALT 71 H Alkaline Phosphatase 58 Total Protein 5.5 L Albumin 3.2 L Stool Occult Blood Impressions: Chest/Abdomen CTA 07/28/16 00:00 IMPRESSION: 1. No PE. 2. COPD. Chest X-Ray 08/04/16 06:00 IMPRESSION: STABLE APPEARANCE OF THE CHEST. SUPPORT DEVICES UNCHANGED. Assessment & Plan - Diagnosis (1) VAP (ventilator-associated pneumonia) Is this a current diagnosis for this admission?: YesPlan: Meets clinical criteria for ventilator associated pneumonia given her culture results, FiO2 PaO2 ratio, normal development of increased amount of purulent sputum within 48 hours of intubation. Continue treatment with Unasyn And scheduled nebulous treatments. (2) COPD with exacerbation Is this a current diagnosis for this admission?: YesPlan: on solu Medrol to 80mg iv q6 Patient is currently growing Acinetobacter Leigha I, Klebsiella oxytoca, and staph aureus. Patient to Unasyn based on sensitivity. (3) Hypophosphatemia Is this a current diagnosis for this admission?: YesPlan: This has improved and we will continue to monitor. (4) Acute hypoxemic respiratory failure Is this a current diagnosis for this admission?: YesPlan: Patient is currently intubated. Appreciate pulmonary input. (5) Depression Qualifiers: Depression Type: unspecified Qualified Code(s): F32.9 - Major depressive disorder, single episode, unspecified Is this a current diagnosis for this admission?: Yes (6) Opiate dependence, continuous Is this a current diagnosis for this admission?: Yes (7) Anemia Qualifiers: Anemia type: iron deficiency Iron deficiency anemia type: unspecified iron deficiency Qualified Code(s): D50.9 - Iron deficiency anemia, unspecified Is this a current diagnosis for this admission?: Yes (8) History of MRSA infection Is this a current diagnosis for this admission?: Yes (9) Tobacco use disorder Is this a current diagnosis for this admission?: Yes (10) GI Prophylaxis Is this a current diagnosis for this admission?: Yes (11) Benzodiazepine dependence, continuous Is this a current diagnosis for this admission?: Yes (12) Chronic pain Qualifiers: Chronic pain type: other chronic pain Qualified Code(s): G89.29 - Other chronic pain Is this a current diagnosis for this admission?: Yes (13) DVT prophylaxis Is this a current diagnosis for this admission?: YesPlan: currently holding pharmacologic prophylaxis due toHeme positive stools (14) Heme positive stool Is this a current diagnosis for this admission?: YesPlan: For GI bleed. Discussion with patient's significant other reveals that she was taking in addition to Zantac also Prilosec and has been taking copious amounts of Mylanta prior to admission. Patient on Protonix and Carafate. No further drop in hemoglobin. Continue to monitor. - Time Critical Time spent with patient: 25-34 minutes Medications reviewed and adjusted accordingly: Yes
[2016-08-04] MEDS: NORMAL SALINE 1000 ML 1,000 ML IV PRN (19:37)
[2016-08-04] MEDS: MONTELUKAST SODIUM 10 MG TABLET NG SCH (22:02)
[2016-08-04] MEDS: NORMAL SALINE INJ/PF 0.9% 10 ML SDV IV PRN (22:03)
[2016-08-05] MEDS: METHYLPREDNISOLONE INJ 125 MG/2 ML SDV IV SCH ×5 (00:17→23:36)
[2016-08-05] MEDS: AMPICILLIN SODIUM/SULBACTAM NA 3 GM in NORMAL SALINE 100 ML IV SCH ×5 (00:17→23:35)
[2016-08-05] MEDS: SUCRALFATE SUSP 1 GM/10 ML UDCUP NG SCH ×5 (00:18→23:40)
[2016-08-05] MEDS: LEVALBUTEROL HCL NEB 1.25 MG/3 ML AMPUL NEB SCH ×4 (01:34→20:11)
[2016-08-05] MEDS: PROPOFOL 100 ML IV PRN (02:32)
[2016-08-05] MEDS: MIDAZOLAM HCL 100 ML IV PRN (02:33)
[2016-08-05] MEDS: HYDROMORPHONE HCL INJ/PF 2 MG/ML AMPULE IV PRN ×2 (02:33→09:18)
[2016-08-05] MEDS: GUAIFENESIN SYRP 200 MG/10 ML UDC NG SCH ×6 (02:34→21:00)
[2016-08-05 05:30] LABS: ARTERIAL BLOOD BASE EXCESS 3.8 mmol/L; ARTERIAL BLOOD O2 SATURATION 93.3 % (94-98)
[2016-08-05 05:34] LABS: HEMOGLOBIN 10.1 g/dL (12.0-15.5); HGB HCT DIFFERENCE -0.7; MEAN CORPUSCULAR HEMOGLOBIN 29.7 pg (27.0-33.4); MEAN CORPUSCULAR HGB CONC 32.5 g/dL (32.0-36.0); MEAN CORPUSCULAR VOLUME 91 fl (80-97); RED BLOOD COUNT 3.39 10^6/uL (3.72-5.28); RED CELL DISTRIBUTION WIDTH 15.6 % (11.5-14.0); WHITE BLOOD COUNT 9.7 10^3/uL (4.0-10.5)
[2016-08-05] MEDS: ALPRAZOLAM 0.5 MG TABLET NG SCH ×3 (05:34→21:07)
[2016-08-05 05:44] LABS: ALANINE AMINOTRANSFERASE 67 U/L (9-52); ALKALINE PHOSPHATASE 56 U/L (38-126); ANION GAP 8 (5-19); ASPARTATE AMINO TRANSFERASE 18 U/L (14-36); BILIRUBIN,DIRECT 0.2 mg/dL (0.0-0.4); BILIRUBIN,TOTAL 0.3 mg/dL (0.2-1.3); BLOOD UREA NITROGEN 17 mg/dL (7-20); CALCIUM 8.5 mg/dL (8.4-10.2); CARBON DIOXIDE 33 mmol/L (22-30); CHLORIDE 103 mmol/L (98-107); CREATININE RESULT 0.45 mg/dL (0.52-1.25); GLUCOSE 185 mg/dL (75-110); MAGNESIUM 1.9 mg/dL (1.6-2.3); PHOSPHORUS 3.9 mg/dL (2.5-4.5); POTASSIUM 3.6 mmol/L (3.6-5.0); SODIUM 144.2 mmol/L (137-145); TOTAL PROTEIN 5.4 g/dL (6.3-8.2)
[2016-08-05 06:23] LABS: BASOPHILS % (MANUAL) 0 % (0-2); EOSINOPHILS % (MANUAL) 0 % (0-6); LYMPHOCYTES % (MANUAL) 3 % (13-45); TOTAL CELLS COUNTED 100
[2016-08-05 06:27] LABS: ANISOCYTOSIS SLIGHT; OVALOCYTES SLIGHT; POLYCHROMASIA SLIGHT
--- NOTE | 2016-08-05 07:12 | RADIOLOGY REPORT (SQ) ---
EXAM DESCRIPTION: CHEST SINGLE VIEW COMPLETED DATE/TIME: 08/05/2016 6:51 am REASON FOR STUDY: resp fail COMPARISON: 08/04/2016. EXAM PARAMETERS: NUMBER OF VIEWS: One view. TECHNIQUE: Single frontal radiographic view of the chest acquired. RADIATION DOSE: NA LIMITATIONS: None. FINDINGS: LUNGS AND PLEURA: Small blunting of the right costophrenic angle. Small mild patchiness o f the right mid lung field. MEDIASTINUM AND HILAR STRUCTURES: No masses. Contour normal. HEART AND VASCULAR STRUCTURES: Heart normal in size. Normal vasculature. BONES: No acute findings. HARDWARE: Adequate appearing endotracheal tube. Likely adequate nasogastric tube partially imaged. Electronic stimulation device overlies the left lateral mid thorax with left nuchal leads. Tip of a right internal jugular central line is in the inferior right atrium ; consider 9.7 cm retraction. OTHER: No other significant finding. IMPRESSION: No significant interval change. TECHNICAL DOCUMENTATION: JOB ID: [id number]
[2016-08-05] MEDS: PHOSPHORUS #1 250 MG TABLET NG SCH ×4 (07:47→21:07)
[2016-08-05] MEDS: BUDESONIDE NEB 0.5 MG/2 ML AMPUL NEB SCH ×2 (08:06→20:11)
[2016-08-05] MEDS ORDERED: FUROSEMIDE INJ/PF 20 MG/2 ML SDV IV ONE (09:05)
[2016-08-05] MEDS: PANTOPRAZOLE SODIUM 40 MG VIAL IV SCH ×2 (09:17→21:00)
[2016-08-05] MEDS: FERROUS SULFATE LIQUID 300 MG/5 ML UDC NG SCH ×3 (09:17→17:46)
[2016-08-05] MEDS: MAGNESIUM OXIDE 400 MG TABLET NG SCH ×2 (09:18→17:46)
[2016-08-05] MEDS: FLUOXETINE HCL 20 MG/5 ML UDCUP NG SCH (09:18)
[2016-08-05] MEDS: LORATADINE 10 MG TABLET NG SCH (09:18)
--- NOTE | 2016-08-05 10:09 | PDOC PROGRESS REPORT ---
Subjective Progress Note for:: 08/05/16 Subjective:: intubated and awake and responsive 4lO2 at home Physical Exam Vital Signs: Temp Pulse Resp BP Pulse Ox 98.7 F 76 12 189/74 H 99 08/05/16 08:00 08/05/16 08:06 08/05/16 08:06 08/05/16 08:00 08/05/16 08:06 Intake & Output 08/04/16 08/05/16 08/06/16 06:59 06:59 06:59 Intake Total 2427 2584 Output Total 1870 1490 60 Balance 557 1094 -60 Weight 61.8 kg 63 kg General appearance: PRESENT: no acute distress, cooperative, disheveled, obese, well-developed Head exam: PRESENT: atraumatic, normocephalic Eye exam: PRESENT: conjunctiva pale, EOMI Mouth exam: PRESENT: dry mucosa, neck supple, other - ET tube Neck exam: ABSENT: carotid bruit, JVD, lymphadenopathy, thyromegaly Respiratory exam: PRESENT: crackles, decreased breath sounds, prolonged expiratory phas, unlabored Cardiovascular exam: PRESENT: RRR, +S1, +S2 Pulses: PRESENT: normal radial pulses GI/Abdominal exam: PRESENT: normal bowel sounds, soft. ABSENT: distended, guarding, mass, organolmegaly, rebound, tenderness Rectal exam: PRESENT: deferred Gentrourinary exam: PRESENT: indwelling catheter Musculoskeletal exam: PRESENT: normal inspection Neurological exam: PRESENT: awake Skin exam: PRESENT: dry, warm Results Laboratory Results: 08/05/16 05:15 08/05/16 05:15 08/05/16 08/05/16 08/05/16 05:15 05:15 05:20 WBC 9.7 RBC 3.39 L Hgb 10.1 L Hct 31.0 L MCV 91 MCH 29.7 MCHC 32.5 RDW 15.6 H Plt Count 355 Seg Neutrophils % Not Reportable Lymphocytes % Not Reportable Monocytes % Not Reportable Eosinophils % Not Reportable Basophils % Not Reportable Absolute Neutrophils Not Reportable Absolute Lymphocytes Not Reportable Absolute Monocytes Not Reportable Absolute Eosinophils Not Reportable Absolute Basophils Not Reportable Carbonic Acid 1.59 H HCO3/H2CO3 Ratio 18:1 ABG pH 7.37 ABG pCO2 52.8 H ABG pO2 69.6 L ABG HCO3 30.0 H ABG O2 Saturation 93.3 L ABG Base Excess 3.8 FiO2 40% Sodium 144.2 Potassium 3.6 Chloride 103 Carbon Dioxide 33 H Anion Gap 8 BUN 17 Creatinine 0.45 L Est GFR ( Amer) > 60 Est GFR (Non-Af Amer) > 60 Glucose 185 H Calcium 8.5 Phosphorus 3.9 Magnesium 1.9 Total Bilirubin 0.3 AST 18 ALT 67 H Alkaline Phosphatase 56 Total Protein 5.4 L Albumin 3.0 L Impressions: Chest/Abdomen CTA 07/28/16 00:00 IMPRESSION: 1. No PE. 2. COPD. Chest X-Ray 08/05/16 06:00 IMPRESSION: No significant interval change. Assessment & Plan - Diagnosis (1) COPD (chronic obstructive pulmonary disease) Qualifiers: COPD type: unspecified COPD Qualified Code(s): J44.9 - Chronic obstructive pulmonary disease, unspecified Is this a current diagnosis for this admission?: Yes (2) Hypoxemia Is this a current diagnosis for this admission?: No (3) Respiratory distress Is this a current diagnosis for this admission?: YesPlan: extubate-->bipap (4) Tobacco use disorder Is this a current diagnosis for this admission?: Yes - Time Critical Time spent with patient: 35 or more minutes - 55 min
[2016-08-05] MEDS ORDERED: DEXAMETHASONE SOD PHOSPHATE INJ 4 MG/1 ML VIAL ONE (10:18)
[2016-08-05] MEDS ORDERED: DEXAMETHASONE SOD PHOS INJ 10 MG/1 ML VIAL IV ONE (11:00)
[2016-08-05] MEDS ORDERED: DEXAMETHASONE SOD PHOSPHATE INJ 4 MG/1 ML VIAL IV ONE (11:15)
[2016-08-05] MEDS ORDERED: PHENOL/SODIUM PHENOLATE 100 SPRAY/177 ML BOTTLE PO PRN (14:37)
--- NOTE | 2016-08-05 14:39 | PDOC PROGRESS REPORT ---
Subjective Progress Note for:: 08/05/16 Subjective:: Acute events overnight. On weaning trial and doing well. Follows commands. Unable to obtain review of systems secondary to intubated and mildly sedated status. Physical Exam Vital Signs: Temp Pulse Resp BP Pulse Ox 97.5 F 91 16 157/84 H 97 08/05/16 12:00 08/05/16 13:37 08/05/16 13:37 08/05/16 12:00 08/05/16 13:37 Intake & Output 08/04/16 08/05/16 08/06/16 06:59 06:59 06:59 Intake Total 2427 2584 Output Total 1870 1490 2100 Balance 557 1094 -2100 Weight 61.8 kg 63 kg Exam: General: intubated and sedated HEENT: AT/NC, PERRL, oropharynx is moist, pink, no scleral icterus, no conjunctival injection, mild scleral edema Neck: No JVD, trachea midline Chest: CTAB CV: Tachycardia, regular rate and rhythm, normal S1 and S2, no murmur, rub, or gallop Abdomen: Soft, nontender to palpation, nondistended, hyperactive bowel sounds; no rebound, rigidity, or guarding Extremities: No cyanosis, clubbing or edema, large right hand ecchymosis Results Laboratory Results: 08/05/16 05:15 08/05/16 05:15 08/05/16 08/05/16 08/05/16 05:15 05:15 05:20 WBC 9.7 RBC 3.39 L Hgb 10.1 L Hct 31.0 L MCV 91 MCH 29.7 MCHC 32.5 RDW 15.6 H Plt Count 355 Seg Neutrophils % Not Reportable Lymphocytes % Not Reportable Monocytes % Not Reportable Eosinophils % Not Reportable Basophils % Not Reportable Absolute Neutrophils Not Reportable Absolute Lymphocytes Not Reportable Absolute Monocytes Not Reportable Absolute Eosinophils Not Reportable Absolute Basophils Not Reportable Carbonic Acid 1.59 H HCO3/H2CO3 Ratio 18:1 ABG pH 7.37 ABG pCO2 52.8 H ABG pO2 69.6 L ABG HCO3 30.0 H ABG O2 Saturation 93.3 L ABG Base Excess 3.8 FiO2 40% Sodium 144.2 Potassium 3.6 Chloride 103 Carbon Dioxide 33 H Anion Gap 8 BUN 17 Creatinine 0.45 L Est GFR ( Amer) > 60 Est GFR (Non-Af Amer) > 60 Glucose 185 H Calcium 8.5 Phosphorus 3.9 Magnesium 1.9 Total Bilirubin 0.3 AST 18 ALT 67 H Alkaline Phosphatase 56 Total Protein 5.4 L Albumin 3.0 L Impressions: Chest/Abdomen CTA 07/28/16 00:00 IMPRESSION: 1. No PE. 2. COPD. Chest X-Ray 08/05/16 06:00 IMPRESSION: No significant interval change. Assessment & Plan - Diagnosis (1) VAP (ventilator-associated pneumonia) Is this a current diagnosis for this admission?: YesPlan: Meets clinical criteria for ventilator associated pneumonia given her culture results, FiO2 PaO2 ratio, normal development of increased amount of purulent sputum within 48 hours of intubation. Continue treatment with Unasyn And scheduled nebulous treatments. (2) COPD with exacerbation Is this a current diagnosis for this admission?: YesPlan: on solu Medrol to 80mg iv q6 Did not tolerate decrease in steroids. Patient is currently growing Acinetobacter Leigha I, Klebsiella oxytoca, and staph aureus. Patient to Unasyn based on sensitivity. (3) Hypophosphatemia Is this a current diagnosis for this admission?: YesPlan: This has improved and we will continue to monitor. (4) Acute hypoxemic respiratory failure Is this a current diagnosis for this admission?: YesPlan: Patient is currently intubated with plans for extubation today. Appreciate pulmonary input. (5) Depression Qualifiers: Depression Type: unspecified Qualified Code(s): F32.9 - Major depressive disorder, single episode, unspecified Is this a current diagnosis for this admission?: YesPlan: Continue Prozac (6) Opiate dependence, continuous Is this a current diagnosis for this admission?: YesPlan: On fentanyl patch and Dilaudid. (7) Anemia Qualifiers: Anemia type: iron deficiency Iron deficiency anemia type: unspecified iron deficiency Qualified Code(s): D50.9 - Iron deficiency anemia, unspecified Is this a current diagnosis for this admission?: Yes (8) Tobacco use disorder Is this a current diagnosis for this admission?: Yes (9) Benzodiazepine dependence, continuous Is this a current diagnosis for this admission?: Yes (10) Chronic pain Qualifiers: Chronic pain type: other chronic pain Qualified Code(s): G89.29 - Other chronic pain Is this a current diagnosis for this admission?: Yes (11) Heme positive stool Is this a current diagnosis for this admission?: YesPlan: Concern for GI bleed. Discussion with patient's significant other reveals that she was taking in addition to Zantac also Prilosec and has been taking copious amounts of Mylanta prior to admission. Patient on Protonix and Carafate. No further drop in hemoglobin. Continue to monitor. (12) DVT prophylaxis Is this a current diagnosis for this admission?: YesPlan: currently holding pharmacologic prophylaxis due toHeme positive stools (13) GI Prophylaxis Is this a current diagnosis for this admission?: YesPlan: On protonix and carafate (14) History of MRSA infection Is this a current diagnosis for this admission?: Yes
[2016-08-05] MEDS: NORMAL SALINE 1000 ML 1,000 ML IV PRN (20:38)
[2016-08-05] MEDS: HALOPERIDOL LACTATE INJ 5 MG/1 ML VIAL IV PRN (20:57)
[2016-08-05] MEDS: MONTELUKAST SODIUM 10 MG TABLET NG SCH (21:07)
[2016-08-05] MEDS: HYDRALAZINE HCL INJ/PF 20 MG/1 ML SDV IV PRN (23:37)
[2016-08-06] MEDS: HYDROMORPHONE HCL INJ/PF 2 MG/ML AMPULE IV PRN ×4 (01:06→20:31)
[2016-08-06] MEDS: GUAIFENESIN SYRP 200 MG/10 ML UDC NG SCH ×5 (01:11→17:10)
[2016-08-06] MEDS: LEVALBUTEROL HCL NEB 1.25 MG/3 ML AMPUL NEB SCH ×4 (02:06→20:32)
[2016-08-06] MEDS ORDERED: METHYLPREDNISOLONE INJ 40 MG/1 ML SDV ONE (05:33)
[2016-08-06] MEDS: HYDRALAZINE HCL INJ/PF 20 MG/1 ML SDV IV PRN ×4 (05:50→19:40)
[2016-08-06] MEDS: METHYLPREDNISOLONE INJ 125 MG/2 ML SDV IV SCH ×3 (05:50→23:09)
[2016-08-06] MEDS: AMPICILLIN SODIUM/SULBACTAM NA 3 GM in NORMAL SALINE 100 ML IV SCH ×4 (05:51→23:09)
[2016-08-06] MEDS: ALPRAZOLAM 0.5 MG TABLET NG SCH ×2 (05:52→13:23)
[2016-08-06] MEDS: SUCRALFATE SUSP 1 GM/10 ML UDCUP NG SCH ×3 (05:55→17:10)
[2016-08-06 06:21] LABS: ARTERIAL BLOOD BASE EXCESS 12.7 mmol/L; ARTERIAL BLOOD O2 SATURATION 95.7 % (94-98)
[2016-08-06 06:38] LABS: BLOOD UREA NITROGEN 14 mg/dL (7-20); CALCIUM 8.9 mg/dL (8.4-10.2); CHLORIDE 97 mmol/L (98-107); CREATININE RESULT 0.47 mg/dL (0.52-1.25); GLUCOSE 145 mg/dL (75-110); MAGNESIUM 1.8 mg/dL (1.6-2.3); SODIUM 144.9 mmol/L (137-145)
[2016-08-06 06:52] LABS: ANION GAP 6 (5-19); CARBON DIOXIDE 42 mmol/L (22-30); HEMATOCRIT 34.2 % (36.0-47.0); HEMOGLOBIN 11.3 g/dL (12.0-15.5); HGB HCT DIFFERENCE -0.3; MEAN CORPUSCULAR HEMOGLOBIN 30.2 pg (27.0-33.4); MEAN CORPUSCULAR HGB CONC 33.1 g/dL (32.0-36.0); MEAN CORPUSCULAR VOLUME 91 fl (80-97); RED BLOOD COUNT 3.75 10^6/uL (3.72-5.28); WHITE BLOOD COUNT 16.2 10^3/uL (4.0-10.5)
[2016-08-06 06:56] LABS: ANISOCYTOSIS SLIGHT; BASOPHILS % (MANUAL) 0 % (0-2); EOSINOPHILS % (MANUAL) 0 % (0-6); LYMPHOCYTES % (MANUAL) 11 % (13-45); POIKILOCYTOSIS SLIGHT; POLYCHROMASIA SLIGHT; TOTAL CELLS COUNTED 100; TOXIC GRANULATION SLIGHT
[2016-08-06 06:57] LABS: OVALOCYTES SLIGHT; ROULEAUX SLIGHT
[2016-08-06] MEDS ORDERED: POTASSI CL 20 MEQ/50 ML RIDER 20 MEQ/50 ML RTUPB IV ONE (07:01)
[2016-08-06] MEDS: POTASSIUM CHLORIDE 20 MEQ/50 ML RTU IV SCH ×2 (07:26→08:33)
[2016-08-06] MEDS: HALOPERIDOL LACTATE INJ 5 MG/1 ML VIAL IV PRN (07:29)
--- NOTE | 2016-08-06 07:35 | RADIOLOGY REPORT (SQ) ---
EXAM DESCRIPTION: CHEST SINGLE VIEW COMPLETED DATE/TIME: 08/06/2016 7:13 am REASON FOR STUDY: resp failure COMPARISON: 08/05/2016. EXAM PARAMETERS: NUMBER OF VIEWS: One view. TECHNIQUE: Single frontal radiographic view of the chest acquired. RADIATION DOSE: NA LIMITATIONS: None. FINDINGS: LUNGS AND PLEURA: Small streakiness -scar of the left mid lung field. Minimal streakiness /focal interstitial prominence of the right mid lung field. Blunted bilateral costophrenic angles. MEDIASTINUM AND HILAR STRUCTURES: No masses. Contour normal. HEART AND VASCULAR STRUCTURES: Heart normal in size. Normal vasculature. BONES: No acute findings. HARDWARE: Tip of a right internal jugular central line is at the level of the right hemidiaphragm; co nsider 12 cm retraction. Electronic stimulation device with nuchal leads partially imaged overlies t he left upper hemithorax. OTHER: No other significant finding. IMPRESSION: No significant interval change.Tip of a right internal jugular central line is at the le nidia of the right hemidiaphragm; consider 12 cm retraction. TECHNICAL DOCUMENTATION: JOB ID: [id number]
[2016-08-06] MEDS: BUDESONIDE NEB 0.5 MG/2 ML AMPUL NEB SCH ×2 (08:20→20:32)
--- NOTE | 2016-08-06 08:54 | PROGRESS NOTE E ---
Progress Note NAME: MIRIAM CASTILLO : 1960 AGE: 56Y DATE: 08/06/2016 ROOM: 609 TIME SPENT MANAGING PATIENT: Forty minutes. SUBJECTIVE: Nursing reports that patient's central line is advanced too far. Radiology recommends pulling back 12 cm. Patient is remaining on BiPAP and does not really respond to questions or commands appropriately, but does seem to insinuate that she is having trouble breathing. Review of systems is difficult to ascertain. OBJECTIVE: VITAL SIGNS: Temperature 97.4, blood pressure 169/84, pulse 118, respirations 26, O2 sat 95% on BiPAP. GENERAL: She is frail, elderly, mildly tachypneic on BiPAP. HEENT: Sclerae are nonicteric. Oropharynx: Edentulous and dry. NECK: No JVD. Central line in right IJ. RESPIRATORY: She has bilateral wheezes and diminished air excursion. CARDIAC: Regular rate and rhythm. No murmurs, gallops, or rubs. ABDOMEN: Soft, nontender, nondistended. Positive bowel sounds. No rebound or guarding. EXTREMITIES: No edema, cyanosis, or clubbing. NEUROLOGIC: She is alert but she seems to be disoriented. Does not response appropriately to questions or commands. LABORATORY: ABG shows pH 7.45, pCO2 of 58.0, pAO2 of 77.9, bicarb 39.0. CBC: White blood count 16.2, hemoglobin 11.3, hematocrit 34.2, platelets 402. Sodium 144, potassium 3.0, chloride 97, bicarb 42, BUN 14, creatinine 0.47, glucose 145, mag 1.8. ASSESSMENT AND PLAN: 1. [id number] HYPOXEMIC AND HYPERCAPNIC RESPIRATORY FAILURE. Continue BiPAP. Dr. Carlos of pulmonary medicine following. 2. COPD EXACERBATION. Patient is chronic oxygen dependent at 4 L nasal cannula at baseline. Continue Solu-Medrol. Continue nebulizer treatments as well as Pulmicort. 3. PNEUMONIA. Continue Unasyn for now. Followup sputum cultures growing gram positive cocci tentatively. 4. HYPOKALEMIA. This has been replaced today. We will repeat labs in the morning. 5. DEPRESSION. 6. CHRONIC PAIN WITH CHRONIC OPIOID DEPENDENCE. 7. CHRONIC BENZODIAZEPINE USE. 8. TOBACCO USE DISORDER. 9. HEMOCCULT POSITIVE STOOL. Continue current medications which include IV Protonix. 10. DVT PROPHYLAXIS. Currently on hold secondary to heme positive stools. 11. HISTORY OF MRSA. Recent sputum culture grew MSSA. Followup sputum culture showing gram positive cocci. We will await further identification. 12. CENTRAL LINE PLACEMENT. Central line is pulled back 8 cm. Repeat chest x-ray pending. DICTATING PHYSICIAN: LUTHER ERVIN M.D. [id number] PHY#: [id number] [id number] JOB#: [id number] ACCT: [id number] cc: >
[2016-08-06] MEDS: PHOSPHORUS #1 250 MG TABLET NG SCH ×3 (08:57→15:37)
[2016-08-06] MEDS: FERROUS SULFATE LIQUID 300 MG/5 ML UDC NG SCH ×3 (09:02→17:10)
[2016-08-06] MEDS: LORATADINE 10 MG TABLET NG SCH (09:02)
[2016-08-06] MEDS: FLUOXETINE HCL 20 MG/5 ML UDCUP NG SCH (09:02)
[2016-08-06] MEDS: MAGNESIUM OXIDE 400 MG TABLET NG SCH ×2 (09:02→17:10)
--- NOTE | 2016-08-06 09:16 | RADIOLOGY REPORT (SQ) ---
EXAM DESCRIPTION: CHEST SINGLE VIEW COMPLETED DATE/TIME: 08/06/2016 8:39 am REASON FOR STUDY: central line placement COMPARISON: 08/06/2016 0612 hours. NUMBER OF VIEWS: One view. TECHNIQUE: Single frontal radiographic view of the chest acquired. LIMITATIONS: None. FINDINGS: LUNGS AND PLEURA: No opacities, masses or pneumothorax. No pleural effusion. Attenuated bl ood vessels and flattened janelle-diaphragms. MEDIASTINUM AND HILAR STRUCTURES: No masses. Contour normal. HEART AND VASCULAR STRUCTURES: Heart normal in size. Normal vasculature. BONES: No acute findings. HARDWARE: Tip of the central line at the level of the superior vena cava. Stimulator device with kt ctrodes extending into the lower left neck. Hardware both shoulders. OTHER: No other significant finding. IMPRESSION: IMPROVED POSITIONING OF THE CENTRAL LINE WITH THE TIP NOW AT THE LEVEL OF THE SUPERIOR V ROBIN CAVA. OTHERWISE NO CHANGE. TECHNICAL DOCUMENTATION: JOB ID: [id number] [email or web address]- All Rights Reserved
[2016-08-06] MEDS: PANTOPRAZOLE SODIUM 40 MG VIAL IV SCH ×2 (09:24→21:29)
[2016-08-06] MEDS: MIDAZOLAM 2 MG/2 ML INJ IV PRN ×3 (09:24→19:32)
[2016-08-06] MEDS: ACETAMINOPHEN 650 MG SUPP.RECT PR PRN (12:40)
--- NOTE | 2016-08-06 13:18 | PDOC PROGRESS REPORT ---
Subjective Progress Note for:: 08/06/16 Subjective:: Awake somewhat flat affect but responds to commands Physical Exam Vital Signs: Temp Pulse Resp BP Pulse Ox 99.1 F 121 H 24 H 163/80 H 92 08/06/16 09:40 08/06/16 08:20 08/06/16 12:00 08/06/16 10:30 08/06/16 12:00 Intake & Output 08/05/16 08/06/16 08/07/16 06:59 06:59 06:59 Intake Total 2582 0401 Output Total 1497 6391 325 Balance 1094 -4246 -325 Weight 63 kg 57.8 kg General appearance: PRESENT: cooperative, disheveled, obese, well-developed Head exam: PRESENT: atraumatic, normocephalic Eye exam: PRESENT: conjunctiva pale, EOMI Mouth exam: PRESENT: dry mucosa, neck supple Neck exam: ABSENT: carotid bruit, JVD, lymphadenopathy, thyromegaly Neurological exam: PRESENT: awake Psychiatric exam: PRESENT: flat affect Skin exam: PRESENT: dry, warm Results Laboratory Results: 08/06/16 06:05 08/06/16 06:05 08/06/16 08/06/16 08/06/16 06:05 06:05 06:05 WBC 16.2 H RBC 3.75 Hgb 11.3 L Hct 34.2 L MCV 91 MCH 30.2 MCHC 33.1 RDW 15.0 H Plt Count 402 Seg Neutrophils % Not Reportable Lymphocytes % Not Reportable Monocytes % Not Reportable Eosinophils % Not Reportable Basophils % Not Reportable Absolute Neutrophils Not Reportable Absolute Lymphocytes Not Reportable Absolute Monocytes Not Reportable Absolute Eosinophils Not Reportable Absolute Basophils Not Reportable Carbonic Acid 1.75 H HCO3/H2CO3 Ratio 22:1 ABG pH 7.45 ABG pCO2 58.0 H ABG pO2 77.9 L ABG HCO3 39.0 H ABG O2 Saturation 95.7 ABG Base Excess 12.7 FiO2 6 LITERS Sodium 144.9 Potassium 3.0 L* Chloride 97 L Carbon Dioxide 42 H* Anion Gap 6 BUN 14 Creatinine 0.47 L Est GFR ( Amer) > 60 Est GFR (Non-Af Amer) > 60 Glucose 145 H Calcium 8.9 Magnesium 1.8 08/02/16 21:30 Tracheal Aspirate Gram Stain - Final 08/02/16 21:30 Tracheal Aspirate Sputum Culture - Final Staphylococcus Aureus Normal Sherry Impressions: Chest/Abdomen CTA 07/28/16 00:00 IMPRESSION: 1. No PE. 2. COPD. Chest X-Ray 08/06/16 08:23 IMPRESSION: IMPROVED POSITIONING OF THE CENTRAL LINE WITH THE TIP NOW AT THE LEVEL OF THE SUPERIOR VENA CAVA. OTHERWISE NO CHANGE. Assessment & Plan - Diagnosis (1) COPD (chronic obstructive pulmonary disease) Qualifiers: COPD type: unspecified COPD Qualified Code(s): J44.9 - Chronic obstructive pulmonary disease, unspecified Is this a current diagnosis for this admission?: YesPlan: Doing well on BiPAP with 30% is on 4 L of O2 per nasal cannula at home (2) Hypoxemia Is this a current diagnosis for this admission?: YesPlan: Chronic respiratory failure O2 dependent (3) Respiratory distress Is this a current diagnosis for this admission?: YesPlan: Extubated and did well for the first 20 hours she was subsequently placed on BiPAP due to an elevated PCO2 despite having a normal pH (4) Tobacco use disorder Is this a current diagnosis for this admission?: Yes - Time Critical Time spent with patient: 35 or more minutes - 60 minutes
[2016-08-06] MEDS ORDERED: METHYLPREDNISOLONE INJ 125 MG/2 ML SDV IV SCH (14:00)
[2016-08-06 16:29] LABS: ARTERIAL BLOOD BASE EXCESS 11.7 mmol/L; ARTERIAL BLOOD O2 SATURATION 93.7 % (94-98)
--- NOTE | 2016-08-06 18:26 | RADIOLOGY REPORT (SQ) ---
EXAM DESCRIPTION: CTA CHEST COMPLETED DATE/TIME: 08/06/2016 5:52 pm REASON FOR STUDY: resp failure COMPARISON: 07/28/2016. TECHNIQUE: CT scan of the chest performed using helical scanning technique with dynamic intravenous contrast injection. Images reviewed with lung, soft tissue and bone windows. Reconstructed coronal and sagittal MPR images reviewed. Additional 3 dimensional post-processing performed to develop Maximal Intensity Projection images (MS P). All images stored on PACS. All CT scanners at this facility use dose modulation, iterative reconstruction, and/or weight based d osing when appropriate to reduce radiation dose to as low as reasonably achievable (ALARA). [facility]: Dose Right [facility]: CareDose [facility]: Dose Right [facility]: Teradose 4D [facility]: [place] CONTRAST TYPE AND DOSE: 65 mL Isovue 370- low osmolar. RENAL FUNCTION: Creatinine 0.5 BUN 14 RADIATION DOSE: 29.40 mGy. LIMITATIONS: None. FINDINGS: LUNGS AND PLEURA: There is no pleural effusion. There is a stable area of scarring/pleura l thickening along the fissure on the left side. No masses appreciated. There is about a 10 mm area of opacity in the right lower lobe posteriorly those not present on the earlier study, suggesting it may be of inflammatory etiology. AORTA AND GREAT VESSELS: No aneurysm or dissection. HEART: No pericardial effusion. PULMONARY ARTERIES: No emboli visualized in the main pulmonary arteries or the segmental branches. HILAR AND MEDIASTINAL STRUCTURES: No identified masses or abnormal nodes. HARDWARE: None in the chest. UPPER ABDOMEN: No significant findings. Limited exam. THYROID AND OTHER SOFT TISSUES: No masses. No adenopathy. BONES: There is a fracture of the upper sternum not present the time of the earlier study. 3D MIPS: Confirm above findings. OTHER: No other significant finding. IMPRESSION: 1. There are chronic lung and pleural changes. 2. There is no evidence of pulmonary embolus. 3. There is a small area of opacity in the right lower lobe that may be inflammatory. This was not present the time of the previous study. 4. There is a fracture of the upper sternum. TECHNICAL DOCUMENTATION: JOB ID: [id number] Quality ID # [id number]: Final reports with documentation of one or more dose reduction techniques (e.g., Au tomated exposure control, adjustment of the mA and/or kV according to patient size, use of iterative reconstruction technique) 2010 [employer]- All Rights Reserved
[2016-08-06] MEDS ORDERED: DEXTROSE 40% GEL 15 GM TUBE PO PRN ×2 (19:43)
[2016-08-06] MEDS: ALPRAZOLAM 0.5 MG TABLET PO SCH (21:32)
[2016-08-06] MEDS: PHOSPHORUS #1 250 MG TABLET PO SCH (21:32)
[2016-08-06] MEDS: ENOXAPARIN SODIUM INJ 40 MG/0.4 ML DISP.SYRIN SUBCUT SCH (21:32)
[2016-08-06] MEDS: GUAIFENESIN SYRP 200 MG/10 ML UDC PO SCH (21:32)
[2016-08-06] MEDS ORDERED: MONTELUKAST SODIUM 10 MG TABLET PO SCH (22:00)
[2016-08-06] MEDS ORDERED: OLANZAPINE INJ/PF 10 MG SDV IM ONE (22:40)
[2016-08-06] MEDS: SUCRALFATE SUSP 1 GM/10 ML UDCUP PO SCH (23:11)
[2016-08-06] MEDS: NORMAL SALINE 1000 ML 1,000 ML IV PRN (23:11)
[2016-08-07] MEDS ORDERED: OLANZAPINE INJ/PF 10 MG SDV IM PRN (00:47)
[2016-08-07] MEDS: GUAIFENESIN SYRP 200 MG/10 ML UDC PO SCH ×2 (01:22→05:33)
[2016-08-07] MEDS: HYDRALAZINE HCL INJ/PF 20 MG/1 ML SDV IV PRN ×2 (01:46→05:54)
[2016-08-07] MEDS: MIDAZOLAM 2 MG/2 ML INJ IV PRN ×2 (01:47→06:25)
[2016-08-07] MEDS: LEVALBUTEROL HCL NEB 1.25 MG/3 ML AMPUL NEB SCH ×4 (02:37→20:02)
[2016-08-07] MEDS ORDERED: METHYLPREDNISOLONE INJ 125 MG/2 ML SDV ONE (05:15)
[2016-08-07] MEDS: HYDROMORPHONE HCL INJ/PF 2 MG/ML AMPULE IV PRN ×4 (05:29→22:09)
[2016-08-07] MEDS: AMPICILLIN SODIUM/SULBACTAM NA 3 GM in NORMAL SALINE 100 ML IV SCH ×4 (05:30→23:22)
[2016-08-07] MEDS: METHYLPREDNISOLONE INJ 125 MG/2 ML SDV IV SCH ×4 (05:30→23:21)
[2016-08-07 05:33] LABS: ARTERIAL BLOOD BASE EXCESS 11.8 mmol/L; ARTERIAL BLOOD O2 SATURATION 95.4 % (94-98)
[2016-08-07] MEDS: SUCRALFATE SUSP 1 GM/10 ML UDCUP PO SCH (05:33)
[2016-08-07] MEDS: ALPRAZOLAM 0.5 MG TABLET PO SCH (05:33)
[2016-08-07 05:37] LABS: ABSOLUTE LYMPHOCYTES (AUTO) 0.8 10^3/uL (0.5-4.7); ABSOLUTE MONOCYTES (AUTO) 0.4 10^3/uL (0.1-1.4); BASOPHILS % (AUTO) 0.1 % (0-2); HEMATOCRIT 35.9 % (36.0-47.0); HEMOGLOBIN 11.7 g/dL (12.0-15.5); HGB HCT DIFFERENCE -0.8; LYMPHOCYTES % (AUTO) 5.9 % (13-45); MEAN CORPUSCULAR HEMOGLOBIN 29.4 pg (27.0-33.4); MEAN CORPUSCULAR HGB CONC 32.5 g/dL (32.0-36.0); MEAN CORPUSCULAR VOLUME 90 fl (80-97); MONOCYTES % (AUTO) 3.1 % (3-13); RED BLOOD COUNT 3.98 10^6/uL (3.72-5.28); RED CELL DISTRIBUTION WIDTH 15.4 % (11.5-14.0); SEGMENTED NEUTROPHILS % (AUTO) 90.9 % (42-78); WHITE BLOOD COUNT 14.3 10^3/uL (4.0-10.5)
[2016-08-07 05:47] LABS: ALANINE AMINOTRANSFERASE 53 U/L (9-52); ALBUMIN 3.4 g/dL (3.5-5.0); ALKALINE PHOSPHATASE 72 U/L (38-126); ANION GAP 7 (5-19); ASPARTATE AMINO TRANSFERASE 19 U/L (14-36); BILIRUBIN,DIRECT 0.4 mg/dL (0.0-0.4); BILIRUBIN,TOTAL 0.7 mg/dL (0.2-1.3); BLOOD UREA NITROGEN 19 mg/dL (7-20); CALCIUM 8.9 mg/dL (8.4-10.2); CARBON DIOXIDE 37 mmol/L (22-30); CHLORIDE 97 mmol/L (98-107); CREATININE RESULT 0.46 mg/dL (0.52-1.25); GLUCOSE 137 mg/dL (75-110); MAGNESIUM 1.9 mg/dL (1.6-2.3); POTASSIUM 3.7 mmol/L (3.6-5.0); SODIUM 141.4 mmol/L (137-145); TOTAL PROTEIN 5.7 g/dL (6.3-8.2)
[2016-08-07] MEDS: PHOSPHORUS #1 250 MG TABLET PO SCH (07:27)
[2016-08-07] MEDS ORDERED: LORAZEPAM INJ 2 MG/1 ML VIAL ONE (07:54)
[2016-08-07] MEDS: LORAZEPAM INJ 2 MG/1 ML VIAL IV PRN ×3 (07:55→23:22)
[2016-08-07] MEDS: POTASSI CL 20 MEQ/D5-1/2NS 1L 1,000 ML IV PRN (07:59)
[2016-08-07] MEDS: BUDESONIDE NEB 0.5 MG/2 ML AMPUL NEB SCH ×2 (08:28→20:02)
[2016-08-07] MEDS: PANTOPRAZOLE SODIUM 40 MG VIAL IV SCH ×2 (09:21→21:22)
[2016-08-07] MEDS: FENTANYL 75 MCG/HR PATCH.TD72 TD SCH (09:24)
[2016-08-07] MEDS ORDERED: FLUOXETINE HCL 20 MG/5 ML UDCUP NG SCH (10:00)
[2016-08-07] MEDS ORDERED: FERROUS SULFATE LIQUID 300 MG/5 ML UDC PO SCH (10:00)
[2016-08-07] MEDS ORDERED: MAGNESIUM OXIDE 400 MG TABLET PO SCH (10:00)
[2016-08-07] MEDS ORDERED: CLONIDINE 0.1 MG/24 HR PATCH.TDWK TD SCH (10:00)
[2016-08-07] MEDS ORDERED: LORATADINE 10 MG TABLET PO SCH (10:00)
[2016-08-07] MEDS: ACETAMINOPHEN 650 MG SUPP.RECT PR PRN (10:40)
--- NOTE | 2016-08-07 12:43 | RADIOLOGY REPORT (SQ) ---
EXAM DESCRIPTION: CHEST SINGLE VIEW COMPLETED DATE/TIME: 08/07/2016 12:17 pm REASON FOR STUDY: resp failure COMPARISON: 08/06/2016. NUMBER OF VIEWS: One view. TECHNIQUE: Single frontal radiographic view of the chest acquired. LIMITATIONS: None. FINDINGS: LUNGS AND PLEURA: No opacities, masses or pneumothorax. No pleural effusion. Attenuated bl ood vessels and flattened janelle-diaphragms. MEDIASTINUM AND HILAR STRUCTURES: No masses. Contour normal. HEART AND VASCULAR STRUCTURES: Heart upper limits of normal in size. Normal vasculature. BONES: No acute findings. HARDWARE: Stable central line. Stimulator device. Hardware in the shoulders. OTHER: No other significant finding. IMPRESSION: COPD. NO ACUTE RADIOGRAPHIC FINDING IN THE CHEST. TECHNICAL DOCUMENTATION: JOB ID: [id number] [employer]- All Rights Reserved
--- NOTE | 2016-08-07 13:31 | PDOC PROGRESS REPORT ---
Subjective Progress Note for:: 08/07/16 Subjective:: Patient has continued shortness of breath. Nursing reports that her blood pressures remained very elevated. The rest of review of systems and history are difficult to ascertain given encephalopathic state. Physical Exam Vital Signs: Temp Pulse Resp BP Pulse Ox 99.5 F 119 H 16 135/71 H 98 08/07/16 04:00 08/07/16 08:28 08/07/16 12:31 08/07/16 12:31 08/07/16 12:31 Intake & Output 08/06/16 08/07/16 08/08/16 06:59 06:59 06:59 Intake Total 2094 1449 Output Total 6340 2975 425 Balance -4246 -1526 -425 Weight 57.8 kg 55.3 kg GENERAL: Mild respiratory distress, on BiPAP, appears much older than age HEENT: Conjunctiva clear, nonicteric, moist mucous membranes, no JVD, midline trachea RESPIRATORY: Faint wheezes, significantly diminished air excursion CARDIAC: slightly tachycardic, regular ABDOMEN: Soft, nondistended, nontender, positive bowel sounds, no rebound, no guarding EXTREMETIES: No edema, cyanosis, clubbing NEUROLOGIC: Alert, oriented to person/place/time, CN's grossly intact, no focal deficits SKIN: No rash, wounds PSYCH: Flat affect Results Laboratory Results: 08/07/16 05:15 08/07/16 05:15 08/06/16 08/07/16 08/07/16 16:10 05:15 05:15 WBC 14.3 H RBC 3.98 Hgb 11.7 L Hct 35.9 L MCV 90 MCH 29.4 MCHC 32.5 RDW 15.4 H Plt Count 343 Seg Neutrophils % 90.9 H Lymphocytes % 5.9 L Monocytes % 3.1 Eosinophils % 0.0 Basophils % 0.1 Absolute Neutrophils 13.0 H Absolute Lymphocytes 0.8 Absolute Monocytes 0.4 Absolute Eosinophils 0.0 Absolute Basophils 0.0 Carbonic Acid 1.46 H HCO3/H2CO3 Ratio 25:1 ABG pH 7.49 H ABG pCO2 48.6 H ABG pO2 63.9 L ABG HCO3 36.5 H ABG O2 Saturation 93.7 L ABG Base Excess 11.7 FiO2 30 Sodium 141.4 Potassium 3.7 Chloride 97 L Carbon Dioxide 37 H Anion Gap 7 BUN 19 Creatinine 0.46 L Est GFR ( Amer) > 60 Est GFR (Non-Af Amer) > 60 Glucose 137 H Calcium 8.9 Magnesium 1.9 Total Bilirubin 0.7 AST 19 ALT 53 H Alkaline Phosphatase 72 Total Protein 5.7 L Albumin 3.4 L 08/07/16 05:15 WBC RBC Hgb Hct MCV MCH MCHC RDW Plt Count Seg Neutrophils % Lymphocytes % Monocytes % Eosinophils % Basophils % Absolute Neutrophils Absolute Lymphocytes Absolute Monocytes Absolute Eosinophils Absolute Basophils Carbonic Acid 1.50 H HCO3/H2CO3 Ratio 24:1 ABG pH 7.49 H ABG pCO2 49.7 H ABG pO2 72.1 L ABG HCO3 37.0 H ABG O2 Saturation 95.4 ABG Base Excess 11.8 FiO2 35% Sodium Potassium Chloride Carbon Dioxide Anion Gap BUN Creatinine Est GFR ( Amer) Est GFR (Non-Af Amer) Glucose Calcium Magnesium Total Bilirubin AST ALT Alkaline Phosphatase Total Protein Albumin 08/02/16 21:30 Tracheal Aspirate Gram Stain - Final 08/02/16 21:30 Tracheal Aspirate Sputum Culture - Final Staphylococcus Aureus Normal Sherry Impressions: Chest/Abdomen CTA 08/06/16 00:00 IMPRESSION: 1. There are chronic lung and pleural changes. 2. There is no evidence of pulmonary embolus. 3. There is a small area of opacity in the right lower lobe that may be inflammatory. This was not present the time of the previous study. 4. There is a fracture of the upper sternum. Chest X-Ray 08/07/16 12:04 IMPRESSION: COPD. NO ACUTE RADIOGRAPHIC FINDING IN THE CHEST. Assessment & Plan - Diagnosis (1) Acute hypoxemic respiratory failure Is this a current diagnosis for this admission?: YesPlan: Continue BiPAP. Dr. Carlos of pulmonary medicine following. Patient is chronic oxygen dependent at baseline. (2) COPD with exacerbation Is this a current diagnosis for this admission?: YesPlan: Continue IV Solu-Medrol. Continue bronchodilators. (3) VAP (ventilator-associated pneumonia) Is this a current diagnosis for this admission?: YesPlan: Sputum culture growing methicillin sensitive staph aureus. Continue Unasyn. (4) Hypertension Is this a current diagnosis for this admission?: YesPlan: Start Catapres patch. As needed IV hydralazine. (5) Sternal fracture Is this a current diagnosis for this admission?: YesPlan: It is unclear how this occurred, however it was not present on admission CT scan. Patient has not had chest compressions. There has been no documented history of trauma. This is probably affecting her respiration to some extent with regard to pain. (6) Benzodiazepine dependence, continuous Is this a current diagnosis for this admission?: YesPlan: Urine IV Ativan (7) Heme positive stool Is this a current diagnosis for this admission?: YesPlan: Hemoglobin and hematocrit stable. Continue IV Protonix (8) Tobacco use disorder Is this a current diagnosis for this admission?: Yes (9) Chronic pain Qualifiers: Chronic pain type: other chronic pain Qualified Code(s): G89.29 - Other chronic pain Is this a current diagnosis for this admission?: YesPlan: Continue Duragesic 75 mcg patch. As needed IV Dilaudid. (10) Opiate dependence, continuous Is this a current diagnosis for this admission?: Yes (11) Anemia Qualifiers: Anemia type: iron deficiency Iron deficiency anemia type: unspecified iron deficiency Qualified Code(s): D50.9 - Iron deficiency anemia, unspecified Is this a current diagnosis for this admission?: Yes (12) Malnutrition Is this a current diagnosis for this admission?: YesPlan: Patient is taking almost no p.o. intake secondary to respiratory difficulty. Continue IV fluid for now. - Time Time Spent with patient: 35 or more minutes - z
[2016-08-07 13:59] LABS: ANION GAP 9 (5-19); BLOOD UREA NITROGEN 21 mg/dL (7-20); CALCIUM 8.7 mg/dL (8.4-10.2); CARBON DIOXIDE 37 mmol/L (22-30); CHLORIDE 97 mmol/L (98-107); CREATININE RESULT 0.55 mg/dL (0.52-1.25); GLUCOSE 164 mg/dL (75-110); MAGNESIUM 1.8 mg/dL (1.6-2.3); POTASSIUM 3.4 mmol/L (3.6-5.0); SODIUM 142.5 mmol/L (137-145)
[2016-08-07] MEDS ORDERED: POTASSI CL 20 MEQ/50 ML RIDER 50 ML IV ONE (14:49)
[2016-08-07] MEDS: INSULIN LISPRO 100 UNIT/ML 3 ML VIAL SUBCUT PRN (18:07)
[2016-08-07] MEDS ORDERED: MONTELUKAST SODIUM 10 MG TABLET NG SCH (22:00)
[2016-08-08] MEDS: POTASSI CL 20 MEQ/D5-1/2NS 1L 1,000 ML IV PRN (00:02)
[2016-08-08] MEDS: LEVALBUTEROL HCL NEB 1.25 MG/3 ML AMPUL NEB SCH ×4 (02:13→20:42)
[2016-08-08] MEDS: HYDROMORPHONE HCL INJ/PF 2 MG/ML AMPULE IV PRN (05:00)
[2016-08-08] MEDS: AMPICILLIN SODIUM/SULBACTAM NA 3 GM in NORMAL SALINE 100 ML IV SCH (05:08)
[2016-08-08] MEDS: METHYLPREDNISOLONE INJ 125 MG/2 ML SDV IV SCH ×3 (05:09→23:25)
[2016-08-08 06:02] LABS: ARTERIAL BLOOD O2 SATURATION 85.1 % (94-98)
[2016-08-08 06:08] LABS: ANION GAP 7 (5-19); BLOOD UREA NITROGEN 18 mg/dL (7-20); CALCIUM 8.9 mg/dL (8.4-10.2); CARBON DIOXIDE 38 mmol/L (22-30); CHLORIDE 100 mmol/L (98-107); CREATININE RESULT 0.53 mg/dL (0.52-1.25); GLUCOSE 241 mg/dL (75-110); MAGNESIUM 1.9 mg/dL (1.6-2.3); POTASSIUM 3.8 mmol/L (3.6-5.0); SODIUM 144.7 mmol/L (137-145)
[2016-08-08 06:13] LABS: HEMATOCRIT 32.4 % (36.0-47.0); HEMOGLOBIN 10.4 g/dL (12.0-15.5); HGB HCT DIFFERENCE -1.2; MEAN CORPUSCULAR HEMOGLOBIN 29.4 pg (27.0-33.4); MEAN CORPUSCULAR HGB CONC 32.2 g/dL (32.0-36.0); MEAN CORPUSCULAR VOLUME 92 fl (80-97); RED BLOOD COUNT 3.54 10^6/uL (3.72-5.28); RED CELL DISTRIBUTION WIDTH 15.7 % (11.5-14.0); WHITE BLOOD COUNT 14.4 10^3/uL (4.0-10.5)
[2016-08-08] MEDS: INSULIN LISPRO 100 UNIT/ML 3 ML VIAL SUBCUT PRN ×4 (06:26→22:25)
[2016-08-08 06:29] LABS: BAND NEUTROPHILS % (MANUAL) 1 % (3-5); BASOPHILS % (MANUAL) 0 % (0-2); EOSINOPHILS % (MANUAL) 0 % (0-6); LYMPHOCYTES % (MANUAL) 3 % (13-45); TOTAL CELLS COUNTED 100
[2016-08-08 06:30] LABS: ANISOCYTOSIS 1+; TOXIC GRANULATION 1+
--- NOTE | 2016-08-08 07:01 | RADIOLOGY REPORT (SQ) ---
EXAM DESCRIPTION: CHEST SINGLE VIEW COMPLETED DATE/TIME: 08/08/2016 6:49 am REASON FOR STUDY: resp failure COMPARISON: Chest x-ray 08/07/2016 EXAM PARAMETERS: NUMBER OF VIEWS: One view. TECHNIQUE: Single frontal radiographic view of the chest acquired. RADIATION DOSE: NA LIMITATIONS: The patient is rotated and the patient's chin is partially obscuring the right lung apex . FINDINGS: LUNGS AND PLEURA: Hyperlucent lungs, consistent with emphysema. No focal consolidation, p leural effusion or pneumothorax. MEDIASTINUM AND HILAR STRUCTURES: No masses. Contour normal. HEART AND VASCULAR STRUCTURES: Heart normal in size. Normal vasculature. BONES: No acute findings. HARDWARE: There is a right IJ central line with the tip overlying the region of the SVC. Battery pac k from a stimulator device is overlying the left hemithorax. Suture anchors are seen at the bilatera l shoulders. IMPRESSION: Emphysema. Otherwise, no acute radiographic finding in the chest. TECHNICAL DOCUMENTATION: JOB ID: [id number]
[2016-08-08] MEDS: HYDRALAZINE HCL INJ/PF 20 MG/1 ML SDV IV PRN ×2 (08:03→20:44)
[2016-08-08] MEDS ORDERED: METHYLPREDNISOLONE INJ 125 MG/2 ML SDV IV SCH (08:10)
[2016-08-08] MEDS: AMLODIPINE BESYLATE 5 MG TABLET PO SCH (08:28)
[2016-08-08] MEDS: FLUOXETINE HCL 20 MG CAPSULE PO SCH (08:30)
[2016-08-08] MEDS: LORAZEPAM INJ 2 MG/1 ML VIAL IV PRN (08:30)
[2016-08-08] MEDS: NYSTATIN 500000 UNIT/5 ML UDCUP PO SCH ×4 (08:32→22:26)
--- NOTE | 2016-08-08 08:34 | PDOC PROGRESS REPORT ---
Subjective Progress Note for:: 08/08/16 Subjective:: Patient's respiratory status is much improved today. She is stable on nasal cannula oxygen. She is taking oral intake. She states that she thinks she has thrush as it feels uncomfortable when she swallows. She has had this before and this feels exactly the same. Patient denies fever, chills, headache, new focal weakness, chest pain, abdominal pain, nausea, vomiting, diarrhea, constipation. Physical Exam Vital Signs: Temp Pulse Resp BP Pulse Ox 99.5 F 92 25 H 190/99 H 93 08/08/16 07:56 08/08/16 07:56 08/08/16 07:56 08/08/16 07:56 08/08/16 07:56 Intake & Output 08/07/16 08/08/16 08/09/16 06:59 06:59 06:59 Intake Total 1449 1777 Output Total 2975 2900 140 Balance -1526 -1123 -140 Weight 55.3 kg 54.2 kg GENERAL: No acute distress HEENT: Conjunctiva clear, nonicteric, moist mucous membranes, no definite white patches to suggest oropharyngeal thrush, edentulous, no JVD, midline trachea RESPIRATORY: Bilateral wheezes, diminished air excursion CARDIAC: Regular rate and rhythm, no murmurs/gallops/rubs ABDOMEN: Soft, nondistended, nontender, positive bowel sounds, no rebound, no guarding EXTREMETIES: No edema, cyanosis, clubbing NEUROLOGIC: Alert, oriented to person/place/time, CN's grossly intact, no focal deficits SKIN: No rash, wounds PSYCH: Normal mood, normal affect Results Laboratory Results: 08/08/16 05:35 08/08/16 05:35 08/07/16 08/08/16 08/08/16 13:25 05:35 05:35 WBC RBC Hgb Hct MCV MCH MCHC RDW Plt Count Seg Neutrophils % Lymphocytes % Monocytes % Eosinophils % Basophils % Absolute Neutrophils Absolute Lymphocytes Absolute Monocytes Absolute Eosinophils Absolute Basophils Carbonic Acid 1.73 H HCO3/H2CO3 Ratio 20:1 ABG pH 7.42 ABG pCO2 57.4 H ABG pO2 50.1 L ABG HCO3 36.2 H ABG O2 Saturation 85.1 L ABG Base Excess 10.0 FiO2 5L Sodium 142.5 144.7 Potassium 3.4 L 3.8 Chloride 97 L 100 Carbon Dioxide 37 H 38 H Anion Gap 9 7 BUN 21 H 18 Creatinine 0.55 0.53 Est GFR ( Amer) > 60 > 60 Est GFR (Non-Af Amer) > 60 > 60 Glucose 164 H 241 H Calcium 8.7 8.9 Magnesium 1.8 1.9 08/08/16 05:35 WBC 14.4 H RBC 3.54 L Hgb 10.4 L Hct 32.4 L MCV 92 MCH 29.4 MCHC 32.2 RDW 15.7 H Plt Count 233 Seg Neutrophils % Not Reportable Lymphocytes % Not Reportable Monocytes % Not Reportable Eosinophils % Not Reportable Basophils % Not Reportable Absolute Neutrophils Not Reportable Absolute Lymphocytes Not Reportable Absolute Monocytes Not Reportable Absolute Eosinophils Not Reportable Absolute Basophils Not Reportable Carbonic Acid HCO3/H2CO3 Ratio ABG pH ABG pCO2 ABG pO2 ABG HCO3 ABG O2 Saturation ABG Base Excess FiO2 Sodium Potassium Chloride Carbon Dioxide Anion Gap BUN Creatinine Est GFR ( Amer) Est GFR (Non-Af Amer) Glucose Calcium Magnesium 08/07/16 13:25 NT-Pro-B Natriuret Pep 2110 H Impressions: Chest/Abdomen CTA 08/06/16 00:00 IMPRESSION: 1. There are chronic lung and pleural changes. 2. There is no evidence of pulmonary embolus. 3. There is a small area of opacity in the right lower lobe that may be inflammatory. This was not present the time of the previous study. 4. There is a fracture of the upper sternum. Chest X-Ray 08/08/16 06:00 IMPRESSION: Emphysema. Otherwise, no acute radiographic finding in the chest. Assessment & Plan - Diagnosis (1) Acute hypoxemic respiratory failure Is this a current diagnosis for this admission?: YesPlan: Now stable on nasal cannula oxygen. Patient was chronic home oxygen dependent at baseline. Dr. Carlos of pulmonary medicine following. (2) COPD with exacerbation Is this a current diagnosis for this admission?: YesPlan: Continue IV Solu-Medrol. Continue bronchodilators. (3) VAP (ventilator-associated pneumonia) Is this a current diagnosis for this admission?: YesPlan: Sputum culture growing methicillin sensitive staph aureus. Discontinue Unasyn. Start doxycycline until 08/15/2016. (4) Hypertension Is this a current diagnosis for this admission?: YesPlan: Continue Catapres patch. Start Norvasc 5 mg daily. As needed IV hydralazine. (5) Sternal fracture Is this a current diagnosis for this admission?: YesPlan: It is unclear how this occurred, however it was not present on admission CT scan. Patient has not had chest compressions. Patient does state that she had a fall prior to admission. This is probably affecting her respiration to some extent with regard to pain. (6) Benzodiazepine dependence, continuous Is this a current diagnosis for this admission?: YesPlan: Discontinue IV Ativan. Start oral Xanax 1 mg every 8 hours as needed. (7) Heme positive stool Is this a current diagnosis for this admission?: YesPlan: Hemoglobin and hematocrit stable. Prevacid. Continue to hold Lovenox. (8) Tobacco use disorder Is this a current diagnosis for this admission?: Yes (9) Chronic pain Qualifiers: Chronic pain type: other chronic pain Qualified Code(s): G89.29 - Other chronic pain Is this a current diagnosis for this admission?: YesPlan: Continue Duragesic 75 mcg patch. As needed oxycodone. (10) Opiate dependence, continuous Is this a current diagnosis for this admission?: Yes (11) Anemia Qualifiers: Anemia type: iron deficiency Iron deficiency anemia type: unspecified iron deficiency Qualified Code(s): D50.9 - Iron deficiency anemia, unspecified Is this a current diagnosis for this admission?: Yes (12) Malnutrition Is this a current diagnosis for this admission?: YesPlan: Now taking good oral intake. Discontinue IV fluids. (13) Joan esophagitis Is this a current diagnosis for this admission?: YesPlan: Nystatin. - Time Time Spent with patient: 35 or more minutes
[2016-08-08] MEDS: BUDESONIDE NEB 0.5 MG/2 ML AMPUL NEB SCH ×2 (08:46→20:43)
[2016-08-08] MEDS ORDERED: (PENDING PHARMACY ID) (Cyanocobalamin (Vitamin B-12) [B-12] 2,500 MCG) SL SCH (10:00)
[2016-08-08] MEDS ORDERED: METHYLPREDNISOLONE INJ 40 MG/1 ML SDV IV SCH (12:00)
[2016-08-08] MEDS: CYANOCOBALAMIN (VITAMIN B-12) 1,000 MCG TABLET PO SCH (14:18)
[2016-08-08] MEDS: DOXYCYCLINE HYCLATE 100 MG TABLET PO SCH ×2 (14:18→22:25)
--- NOTE | 2016-08-08 16:06 | ST Inp Modified Barium Swallow ---
Medical Diagnosis - Medical Diagnoses Medical Diagnosis Description & ICD-10 Code(s): acute hypoxemic respiratory failure - ICD-10 Tx Diagnosis Coding (1) Acute hypoxemic respiratory failure ICD-10 Code(s): J96.01 - ACUTE RESPIRATORY FAILURE WITH HYPOXIA (2) Benzodiazepine dependence, continuous ICD-10 Code(s): F13.20 - SEDATIVE, HYPNOTIC OR ANXIOLYTIC DEPENDENCE, UNCOMPLICATED (3) COPD with exacerbation ICD-10 Code(s): J44.1 - CHRONIC OBSTRUCTIVE PULMONARY DISEASE W (ACUTE) EXACERBATION (4) Joan esophagitis ICD-10 Code(s): B37.81 - CANDIDAL ESOPHAGITIS (5) Hypertension ICD-10 Code(s): I10 - ESSENTIAL (PRIMARY) HYPERTENSION (6) Malnutrition ICD-10 Code(s): E46 - UNSPECIFIED PROTEIN-CALORIE MALNUTRITION (7) Respiratory distress ICD-10 Code(s): R06.00 - DYSPNEA, UNSPECIFIED (8) Sternal fracture ICD-10 Code(s): S22.20XA - UNSP FRACTURE OF STERNUM, INIT ENCNTR FOR CLOSED FRACTURE (9) VAP (ventilator-associated pneumonia) ICD-10 Code(s): J95.851 - VENTILATOR ASSOCIATED PNEUMONIA (10) Tobacco use disorder ICD-10 Code(s): Z72.0 - TOBACCO USE (11) Chronic pain ICD-10 Code(s): G89.29 - OTHER CHRONIC PAIN (12) Opiate dependence, continuous ICD-10 Code(s): F11.20 - OPIOID DEPENDENCE, UNCOMPLICATED (13) Anemia ICD-10 Code(s): D64.9 - ANEMIA, UNSPECIFIED ST Inpatient MBS - General Date: 08/08/16 Date of Onset: 07/28/16 - History History Obtained From: Other - EMR -: Medical - Patient admitted 07/28/16. ST reviewed physician's notes - current diagnoses listed above. Patient reports that at baseline she was eating soft foods - reported hardest food was scrambled egg sandwich. Reported had teeth pulled about a year ago and does not yet have dentures. Medications: Medications Reviewed Allergies: Refer to medical record - Subjective Current Nutritional Means: PO - honey thick liquids and puree Current Symptoms: Poor intake, Coughing, other - failed swallow screen Pain: no signs/symptoms of pain - however patient expressed concerns for being able to tolerate barium - stated only drank water, tea, and pepsi. Patient did agree to try "a little bit" if necessary for study. Reported did have barium study before. - Objective Assessment: Upright, Left Lateral - Food Trials Food Trials Used: Thin liquids, Pureed The Patient: Was Able to Self Feed - Assessment Labial Function: Within Functional Limits Lingual Function: Within Functional Limits Mandibular Function: Within Functional Limits Dentition: Edentulous Velo-Pharyngeal Function: Not assessed - Pharyngeal Stage Initiation of Pharyngeal Stage: Normal Decreased Laryngeal Elevation: Yes Reduced Velo-Pharyngeal Closure: no Reduced Pressure Generation: Yes Reduced Tongue Base Retraction: Yes Pre-Swallowing Pooling in Valleculae: None Pre-Swallowing Pooling in Pyriforms: None Reduced Thyro-Hyiod Approximation: No Reduced Epiglottic Excursion: Yes Reduced Pharyngeal Peristalsis: Yes Multiple Swallows With: Ineffective Clearance - mild post-swallow residuals in vallecula Post Swallow Residuals in Valleculae: Mild Post Swallow Residuals in Pyriforms: None - Esophageal Stage Cricophageal Function: Normal - Impression/Summary Laryngeal Penetration: No Tracheal Aspiration: no Patient Presents With: Pharyngeal stage dysph., Mild-Moderate Risk of Aspiration: Moderate Risk of Nutritional Compromise: Moderate Risk Due To: aspiration risk factors: respiratory status. nutrition risk factors: edentulous status resulting in patient limiting diet to soft solids due to discomfort - Recommendations Solid Diet Recommendations: Pureed - patient judged able to tolerate soft solids (up to mechanical soft ground meats) or may benefit from liquid diet if puree is not appetizing Liquid Diet Recommendations: Thin Regular Diet: No Strict Aspitarion Precautions: Yes Dysphagia Therapy with HOME ECONOMICS EXTENSION WORKER: No - no skilled intervention indicated Recommended Techniques: Small Bites and Sips, Alternate Bites/Sips Supervision: Distant Other Recommendations: DIET RECOMMENDATIONS: 1. Consistency: Solids: patient judged able to tolerate diet up to mechanical soft ground. May prefer puree or liquid diet due to reported discomfort with foods that require biting and chewing. Liquids: thin liquids, able to tolerate straw sips without aspiration. 2. Strict aspiration precautions. 3. Alternate bites and sips, small bites & sips. - Time Total Time: 20 Total Timed Minutes: 0
[2016-08-08] MEDS: MONTELUKAST SODIUM 10 MG TABLET PO SCH (22:25)
[2016-08-09] MEDS: NORMAL SALINE INJ/PF 0.9% 10 ML SDV IV PRN ×2 (01:10→05:23)
[2016-08-09] MEDS: HYDRALAZINE HCL INJ/PF 20 MG/1 ML SDV IV PRN (01:10)
[2016-08-09] MEDS: LEVALBUTEROL HCL NEB 1.25 MG/3 ML AMPUL NEB SCH ×4 (02:31→18:31)
[2016-08-09] MEDS: METHYLPREDNISOLONE INJ 125 MG/2 ML SDV IV SCH (05:22)
[2016-08-09 06:50] LABS: ALANINE AMINOTRANSFERASE 49 U/L (9-52); ALBUMIN 3.2 g/dL (3.5-5.0); ALKALINE PHOSPHATASE 65 U/L (38-126); ANION GAP 7 (5-19); ASPARTATE AMINO TRANSFERASE 14 U/L (14-36); BILIRUBIN,DIRECT 0.4 mg/dL (0.0-0.4); BILIRUBIN,TOTAL 0.7 mg/dL (0.2-1.3); BLOOD UREA NITROGEN 17 mg/dL (7-20); CALCIUM 8.9 mg/dL (8.4-10.2); CARBON DIOXIDE 39 mmol/L (22-30); CHLORIDE 96 mmol/L (98-107); CREATININE RESULT 0.48 mg/dL (0.52-1.25); GLUCOSE 151 mg/dL (75-110); MAGNESIUM 1.8 mg/dL (1.6-2.3); POTASSIUM 3.5 mmol/L (3.6-5.0); SODIUM 142.4 mmol/L (137-145); TOTAL PROTEIN 5.8 g/dL (6.3-8.2)
[2016-08-09 06:59] LABS: HEMATOCRIT 34.1 % (36.0-47.0); HGB HCT DIFFERENCE -1.1; MEAN CORPUSCULAR HEMOGLOBIN 29.9 pg (27.0-33.4); MEAN CORPUSCULAR HGB CONC 32.4 g/dL (32.0-36.0); MEAN CORPUSCULAR VOLUME 92 fl (80-97); RED CELL DISTRIBUTION WIDTH 15.4 % (11.5-14.0); WHITE BLOOD COUNT 15.1 10^3/uL (4.0-10.5)
[2016-08-09 07:01] LABS: BASOPHILS % (MANUAL) 0 % (0-2); EOSINOPHILS % (MANUAL) 0 % (0-6); LYMPHOCYTES % (MANUAL) 2 % (13-45); TOTAL CELLS COUNTED 100
[2016-08-09 07:03] LABS: RBC MORPHOLOGY COMMENT NORMO-CYTIC/CHROMIC
[2016-08-09] MEDS: BUDESONIDE NEB 0.5 MG/2 ML AMPUL NEB SCH ×2 (07:40→20:29)
[2016-08-09] MEDS ORDERED: POTASSIUM CHLORIDE 10 MEQ TABLET.SA PO ONE (08:00)
[2016-08-09] MEDS ORDERED: POTASSIUM CHLORIDE 20 MEQ/15 ML UDCUP ONE (08:56)
[2016-08-09] MEDS: ACETAMINOPHEN 325 MG TABLET PO PRN (09:06)
[2016-08-09] MEDS: FENTANYL 75 MCG/HR PATCH.TD72 TD SCH (09:06)
[2016-08-09] MEDS: ALPRAZOLAM 0.5 MG TABLET PO PRN ×2 (09:06→16:00)
[2016-08-09] MEDS: FLUOXETINE HCL 20 MG CAPSULE PO SCH (09:08)
[2016-08-09] MEDS: CYANOCOBALAMIN (VITAMIN B-12) 1,000 MCG TABLET PO SCH (09:08)
[2016-08-09] MEDS: DOXYCYCLINE HYCLATE 100 MG TABLET PO SCH ×2 (09:08→21:47)
[2016-08-09] MEDS: AMLODIPINE BESYLATE 5 MG TABLET PO SCH (09:09)
[2016-08-09] MEDS: NYSTATIN 500000 UNIT/5 ML UDCUP PO SCH ×4 (09:10→21:49)
[2016-08-09] MEDS: LANSOPRAZOLE 30 MG TAB.RAP.DR PO SCH (09:10)
--- NOTE | 2016-08-09 10:23 | PDOC PROGRESS REPORT ---
Subjective Progress Note for:: 08/08/16 Subjective:: confused Physical Exam Vital Signs: Temp Pulse Resp BP Pulse Ox 99.5 F 92 25 H 190/99 H 93 08/08/16 07:56 08/08/16 07:56 08/08/16 07:56 08/08/16 07:56 08/08/16 07:56 Intake & Output 08/07/16 08/08/16 08/09/16 06:59 06:59 06:59 Intake Total 1449 1777 Output Total 5527 0210 140 Balance -1526 -1123 -140 Weight 55.3 kg 54.2 kg General appearance: PRESENT: disheveled, thin, well-developed Head exam: PRESENT: atraumatic, normocephalic Eye exam: PRESENT: conjunctiva pale, EOMI Mouth exam: PRESENT: dry mucosa, neck supple, tongue midline Neck exam: ABSENT: carotid bruit, JVD, lymphadenopathy, thyromegaly Respiratory exam: PRESENT: decreased breath sounds, prolonged expiratory phas, rhonchi, symmetrical, wheezes Cardiovascular exam: PRESENT: RRR, +S1, +S2 Pulses: PRESENT: normal radial pulses GI/Abdominal exam: PRESENT: normal bowel sounds, soft. ABSENT: distended, guarding, mass, organolmegaly, rebound, tenderness Rectal exam: PRESENT: deferred Gentrourinary exam: PRESENT: indwelling catheter Musculoskeletal exam: PRESENT: normal inspection Neurological exam: PRESENT: awake Psychiatric exam: PRESENT: unusual affect Skin exam: PRESENT: dry, warm Results Laboratory Results: 08/08/16 05:35 08/08/16 05:35 08/07/16 08/08/16 08/08/16 13:25 05:35 05:35 WBC RBC Hgb Hct MCV MCH MCHC RDW Plt Count Seg Neutrophils % Lymphocytes % Monocytes % Eosinophils % Basophils % Absolute Neutrophils Absolute Lymphocytes Absolute Monocytes Absolute Eosinophils Absolute Basophils Carbonic Acid 1.73 H HCO3/H2CO3 Ratio 20:1 ABG pH 7.42 ABG pCO2 57.4 H ABG pO2 50.1 L ABG HCO3 36.2 H ABG O2 Saturation 85.1 L ABG Base Excess 10.0 FiO2 5L Sodium 142.5 144.7 Potassium 3.4 L 3.8 Chloride 97 L 100 Carbon Dioxide 37 H 38 H Anion Gap 9 7 BUN 21 H 18 Creatinine 0.55 0.53 Est GFR ( Amer) > 60 > 60 Est GFR (Non-Af Amer) > 60 > 60 Glucose 164 H 241 H Calcium 8.7 8.9 Magnesium 1.8 1.9 08/08/16 05:35 WBC 14.4 H RBC 3.54 L Hgb 10.4 L Hct 32.4 L MCV 92 MCH 29.4 MCHC 32.2 RDW 15.7 H Plt Count 233 Seg Neutrophils % Not Reportable Lymphocytes % Not Reportable Monocytes % Not Reportable Eosinophils % Not Reportable Basophils % Not Reportable Absolute Neutrophils Not Reportable Absolute Lymphocytes Not Reportable Absolute Monocytes Not Reportable Absolute Eosinophils Not Reportable Absolute Basophils Not Reportable Carbonic Acid HCO3/H2CO3 Ratio ABG pH ABG pCO2 ABG pO2 ABG HCO3 ABG O2 Saturation ABG Base Excess FiO2 Sodium Potassium Chloride Carbon Dioxide Anion Gap BUN Creatinine Est GFR ( Amer) Est GFR (Non-Af Amer) Glucose Calcium Magnesium 08/07/16 13:25 NT-Pro-B Natriuret Pep 2110 H Impressions: Chest/Abdomen CTA 08/06/16 00:00 IMPRESSION: 1. There are chronic lung and pleural changes. 2. There is no evidence of pulmonary embolus. 3. There is a small area of opacity in the right lower lobe that may be inflammatory. This was not present the time of the previous study. 4. There is a fracture of the upper sternum. Chest X-Ray 08/08/16 06:00 IMPRESSION: Emphysema. Otherwise, no acute radiographic finding in the chest. Assessment & Plan - Diagnosis (1) COPD (chronic obstructive pulmonary disease) Qualifiers: COPD type: unspecified COPD Qualified Code(s): J44.9 - Chronic obstructive pulmonary disease, unspecified Is this a current diagnosis for this admission?: YesPlan: on n/c after being on AVAPS? continues to retain PCO2 (2) Hypoxemia Is this a current diagnosis for this admission?: No (3) Respiratory distress Is this a current diagnosis for this admission?: No (4) Tobacco use disorder Is this a current diagnosis for this admission?: Yes
--- NOTE | 2016-08-09 10:28 | PDOC PROGRESS REPORT ---
Subjective Progress Note for:: 08/09/16 Subjective:: confused Physical Exam Vital Signs: Temp Pulse Resp BP Pulse Ox 99.2 F 99 22 H 173/89 H 96 08/09/16 07:49 08/09/16 07:49 08/09/16 07:49 08/09/16 07:49 08/09/16 07:49 Intake & Output 08/08/16 08/09/16 08/10/16 06:59 06:59 06:59 Intake Total 1977 304 Output Total 3900 2140 Balance -1922 Weight 54.2 kg 58 kg General appearance: PRESENT: disheveled, thin, well-developed Head exam: PRESENT: atraumatic, normocephalic Eye exam: PRESENT: conjunctiva pale, EOMI Mouth exam: PRESENT: dry mucosa, neck supple, tongue midline Teeth exam: PRESENT: poor dentation Neck exam: ABSENT: carotid bruit, JVD, lymphadenopathy, thyromegaly Respiratory exam: PRESENT: crackles, decreased breath sounds, prolonged expiratory phas, rhonchi, symmetrical, wheezes Cardiovascular exam: PRESENT: irregular rhythm Pulses: PRESENT: normal radial pulses GI/Abdominal exam: PRESENT: normal bowel sounds, soft. ABSENT: distended, guarding, mass, organolmegaly, rebound, tenderness Rectal exam: PRESENT: deferred Gentrourinary exam: PRESENT: indwelling catheter Musculoskeletal exam: PRESENT: normal inspection Neurological exam: PRESENT: awake Skin exam: PRESENT: dry Results Laboratory Results: 08/09/16 05:25 08/09/16 05:25 08/09/16 08/09/16 05:25 05:25 WBC 15.1 H RBC 3.70 L Hgb 11.0 L Hct 34.1 L MCV 92 MCH 29.9 MCHC 32.4 RDW 15.4 H Plt Count 221 Seg Neutrophils % Not Reportable Lymphocytes % Not Reportable Monocytes % Not Reportable Eosinophils % Not Reportable Basophils % Not Reportable Absolute Neutrophils Not Reportable Absolute Lymphocytes Not Reportable Absolute Monocytes Not Reportable Absolute Eosinophils Not Reportable Absolute Basophils Not Reportable Sodium 142.4 Potassium 3.5 L Chloride 96 L Carbon Dioxide 39 H Anion Gap 7 BUN 17 Creatinine 0.48 L Est GFR ( Amer) > 60 Est GFR (Non-Af Amer) > 60 Glucose 151 H Calcium 8.9 Magnesium 1.8 Total Bilirubin 0.7 AST 14 ALT 49 Alkaline Phosphatase 65 Total Protein 5.8 L Albumin 3.2 L 08/07/16 13:25 NT-Pro-B Natriuret Pep 2110 H Impressions: Chest/Abdomen CTA 08/06/16 00:00 IMPRESSION: 1. There are chronic lung and pleural changes. 2. There is no evidence of pulmonary embolus. 3. There is a small area of opacity in the right lower lobe that may be inflammatory. This was not present the time of the previous study. 4. There is a fracture of the upper sternum. Chest X-Ray 08/08/16 06:00 IMPRESSION: Emphysema. Otherwise, no acute radiographic finding in the chest. Assessment & Plan - Diagnosis (1) COPD (chronic obstructive pulmonary disease) Qualifiers: COPD type: unspecified COPD Qualified Code(s): J44.9 - Chronic obstructive pulmonary disease, unspecified Is this a current diagnosis for this admission?: YesPlan: The above patient has failed BiPAP. This patient would benefit from noninvasive mechanical ventilation via the trilogy AVAPS/AE and faster responding AVAPS rates. The trilogy is able to provide a target tidal volume and also adjusting the EPAP pressures to maintain a patent airway as well as an oral backup rate this machine will help improve PaCO2 levels. The severity of the patient's condition will lead to future hospitalizations and readmissions as well as life-threatening situations without the use of this device trilogy home vent needed for hypercapnic respiratory failure. [facility] to follow for trilogy set up. (2) Hypoxemia Is this a current diagnosis for this admission?: No (3) Respiratory distress Is this a current diagnosis for this admission?: YesPlan: minimal but increased WOB (4) Tobacco use disorder Is this a current diagnosis for this admission?: Yes
[2016-08-09] MEDS ORDERED: AMLODIPINE BESYLATE 5 MG TABLET PO SCH (12:20)
--- NOTE | 2016-08-09 12:25 | PDOC PROGRESS REPORT ---
Subjective Progress Note for:: 08/09/16 Subjective:: Patient has some continued shortness of breath and productive cough. She has also been having some issues with depression. She expressed to nursing staff that she was tired of living the way she is with regard to her end-stage lung disease. Physical Exam Vital Signs: Temp Pulse Resp BP Pulse Ox 99.2 F 99 22 H 173/89 H 96 08/09/16 07:49 08/09/16 07:49 08/09/16 07:49 08/09/16 07:49 08/09/16 07:49 Intake & Output 08/08/16 08/09/16 08/10/16 06:59 06:59 06:59 Intake Total 1977 304 Output Total 3900 0 Balance -1922 Weight 54.2 kg 58 kg GENERAL: No acute distress HEENT: Conjunctiva clear, nonicteric, moist mucous membranes, no JVD, midline trachea RESPIRATORY: Bilateral wheezes, diminished air excursion CARDIAC: Regular rate and rhythm, no murmurs/gallops/rubs ABDOMEN: Soft, nondistended, nontender, positive bowel sounds, no rebound, no guarding EXTREMETIES: No edema, cyanosis, clubbing NEUROLOGIC: Alert, oriented to person/place/time, CN's grossly intact, no focal deficits SKIN: No rash, wounds PSYCH: Normal mood, normal affect Results Laboratory Results: 08/09/16 05:25 08/09/16 05:25 08/09/16 08/09/16 05:25 05:25 WBC 15.1 H RBC 3.70 L Hgb 11.0 L Hct 34.1 L MCV 92 MCH 29.9 MCHC 32.4 RDW 15.4 H Plt Count 221 Seg Neutrophils % Not Reportable Lymphocytes % Not Reportable Monocytes % Not Reportable Eosinophils % Not Reportable Basophils % Not Reportable Absolute Neutrophils Not Reportable Absolute Lymphocytes Not Reportable Absolute Monocytes Not Reportable Absolute Eosinophils Not Reportable Absolute Basophils Not Reportable Sodium 142.4 Potassium 3.5 L Chloride 96 L Carbon Dioxide 39 H Anion Gap 7 BUN 17 Creatinine 0.48 L Est GFR ( Amer) > 60 Est GFR (Non-Af Amer) > 60 Glucose 151 H Calcium 8.9 Magnesium 1.8 Total Bilirubin 0.7 AST 14 ALT 49 Alkaline Phosphatase 65 Total Protein 5.8 L Albumin 3.2 L 08/07/16 13:25 NT-Pro-B Natriuret Pep 2110 H Impressions: Chest/Abdomen CTA 08/06/16 00:00 IMPRESSION: 1. There are chronic lung and pleural changes. 2. There is no evidence of pulmonary embolus. 3. There is a small area of opacity in the right lower lobe that may be inflammatory. This was not present the time of the previous study. 4. There is a fracture of the upper sternum. Chest X-Ray 08/08/16 06:00 IMPRESSION: Emphysema. Otherwise, no acute radiographic finding in the chest. Assessment & Plan - Diagnosis (1) Acute hypoxemic respiratory failure Is this a current diagnosis for this admission?: YesPlan: Now stable on nasal cannula oxygen. Patient was chronic home oxygen dependent at baseline. Dr. Carlos of pulmonary medicine following. (2) COPD with exacerbation Is this a current diagnosis for this admission?: YesPlan: Decrease IV Solu-Medrol to 40 mg every 8 hours. Continue bronchodilators. (3) VAP (ventilator-associated pneumonia) Is this a current diagnosis for this admission?: YesPlan: Sputum culture growing methicillin sensitive staph aureus. Continue doxycycline until 08/15/2016. (4) Hypertension Is this a current diagnosis for this admission?: YesPlan: Continue Catapres patch, Norvasc 5 mg daily. As needed IV hydralazine. (5) Sternal fracture Is this a current diagnosis for this admission?: Yes (6) Benzodiazepine dependence, continuous Is this a current diagnosis for this admission?: Yes (7) Heme positive stool Is this a current diagnosis for this admission?: Yes (8) Tobacco use disorder Is this a current diagnosis for this admission?: Yes (9) Chronic pain Qualifiers: Chronic pain type: other chronic pain Qualified Code(s): G89.29 - Other chronic pain Is this a current diagnosis for this admission?: YesPlan: Continue Duragesic 75 mcg patch. As needed oxycodone. (10) Opiate dependence, continuous Is this a current diagnosis for this admission?: Yes (11) Anemia Qualifiers: Anemia type: iron deficiency Iron deficiency anemia type: unspecified iron deficiency Qualified Code(s): D50.9 - Iron deficiency anemia, unspecified Is this a current diagnosis for this admission?: Yes (12) Malnutrition Is this a current diagnosis for this admission?: Yes (13) Joan esophagitis Is this a current diagnosis for this admission?: Yes (14) Generalized weakness Is this a current diagnosis for this admission?: YesPlan: Continue physical therapy. Patient may need to go to acute rehab. (15) Depression Qualifiers: Depression Type: unspecified Qualified Code(s): F32.9 - Major depressive disorder, single episode, unspecified Is this a current diagnosis for this admission?: YesPlan: Continue Prozac. This may improve also with weaning off corticosteroids. - Time Time Spent with patient: 35 or more minutes Anticipated discharge: Acute Rehab
[2016-08-09] MEDS ORDERED: METHYLPREDNISOLONE INJ 125 MG/2 ML SDV IV SCH (14:00)
[2016-08-09] MEDS: METHYLPREDNISOLONE INJ 40 MG/1 ML SDV IV SCH ×2 (14:53→21:49)
[2016-08-09] MEDS ORDERED: LEVALBUTEROL HCL NEB 1.25 MG/3 ML AMPUL NEB ONE (18:33)
[2016-08-09] MEDS ORDERED: LEVALBUTEROL HCL NEB 1.25 MG/3 ML AMPUL NEB PRN (18:48)
[2016-08-09] MEDS: MONTELUKAST SODIUM 10 MG TABLET PO SCH (21:47)
[2016-08-09] MEDS: OXYCODONE HCL IR 5 MG TABLET PO PRN (21:55)
[2016-08-10] MEDS: ALPRAZOLAM 0.5 MG TABLET PO PRN ×3 (00:10→22:14)
[2016-08-10] MEDS: HYDRALAZINE HCL INJ/PF 20 MG/1 ML SDV IV PRN ×2 (00:36→08:09)
[2016-08-10] MEDS: LEVALBUTEROL HCL NEB 1.25 MG/3 ML AMPUL NEB SCH ×4 (02:30→20:32)
[2016-08-10] MEDS: METHYLPREDNISOLONE INJ 40 MG/1 ML SDV IV SCH ×2 (05:21→22:15)
[2016-08-10] MEDS: CYANOCOBALAMIN (VITAMIN B-12) 1,000 MCG TABLET PO SCH (08:04)
[2016-08-10] MEDS: LANSOPRAZOLE 30 MG TAB.RAP.DR PO SCH (08:04)
[2016-08-10] MEDS: AMLODIPINE BESYLATE 10 MG TABLET PO SCH (08:07)
[2016-08-10] MEDS: DOXYCYCLINE HYCLATE 100 MG TABLET PO SCH ×2 (08:08→22:14)
[2016-08-10] MEDS: NYSTATIN 500000 UNIT/5 ML UDCUP PO SCH ×4 (08:08→22:15)
[2016-08-10] MEDS: FLUOXETINE HCL 20 MG CAPSULE PO SCH (08:08)
[2016-08-10] MEDS: BUDESONIDE NEB 0.5 MG/2 ML AMPUL NEB SCH ×2 (08:39→20:32)
--- NOTE | 2016-08-10 09:25 | PDOC PROGRESS REPORT ---
Subjective Progress Note for:: 08/10/16 Subjective:: Shortness of breath much improved. No fever, chills, headache, chest pain, abdominal pain, nausea, vomiting. Anxiety and depression improving. Physical Exam Vital Signs: Temp Pulse Resp BP Pulse Ox 97.9 F 90 16 198/93 H 87 L 08/10/16 07:45 08/10/16 07:45 08/10/16 07:45 08/10/16 07:45 08/10/16 07:45 Intake & Output 08/09/16 08/10/16 08/11/16 06:59 06:59 06:59 Intake Total 304 1582 Output Total 2140 2800 Balance -1836 -1218 Weight 58 kg 56.7 kg GENERAL: No acute distress HEENT: Conjunctiva clear, nonicteric, moist mucous membranes, no JVD, midline trachea RESPIRATORY: Faint wheezes in left lung field, good air excursion CARDIAC: Regular rate and rhythm, no murmurs/gallops/rubs ABDOMEN: Soft, nondistended, nontender, positive bowel sounds, no rebound, no guarding EXTREMETIES: No edema, cyanosis, clubbing NEUROLOGIC: Alert, oriented to person/place/time, CN's grossly intact, no focal deficits SKIN: No rash, wounds PSYCH: Normal mood, normal affect Results Laboratory Results: 08/09/16 05:25 08/09/16 05:25 08/07/16 13:25 NT-Pro-B Natriuret Pep 2110 H Impressions: Chest/Abdomen CTA 08/06/16 00:00 IMPRESSION: 1. There are chronic lung and pleural changes. 2. There is no evidence of pulmonary embolus. 3. There is a small area of opacity in the right lower lobe that may be inflammatory. This was not present the time of the previous study. 4. There is a fracture of the upper sternum. Chest X-Ray 08/08/16 06:00 IMPRESSION: Emphysema. Otherwise, no acute radiographic finding in the chest. Assessment & Plan - Diagnosis (1) Acute hypoxemic respiratory failure Is this a current diagnosis for this admission?: YesPlan: Now stable on nasal cannula oxygen. Patient was chronic home oxygen dependent at baseline. Dr. Carlos of pulmonary medicine following. Patient is normally followed by Dr. Galloway the pulmonary medicine, but states she would like to follow-up with Dr. Carlos as she has found Dr. Galloway to be difficult to reach on an outpatient basis. (2) COPD with exacerbation Is this a current diagnosis for this admission?: YesPlan: Decrease IV Solu-Medrol to 40 mg every 12 hours. Continue bronchodilators. (3) VAP (ventilator-associated pneumonia) Is this a current diagnosis for this admission?: YesPlan: Sputum culture growing methicillin sensitive staph aureus. Continue doxycycline until 08/15/2016. (4) Hypertension Is this a current diagnosis for this admission?: YesPlan: Increase Catapres patch to 0.2. Continue Norvasc 5 mg daily. As needed IV hydralazine. (5) Sternal fracture Is this a current diagnosis for this admission?: Yes (6) Benzodiazepine dependence, continuous Is this a current diagnosis for this admission?: YesPlan: Continue oral Xanax 1 mg every 8 hours as needed. (7) Heme positive stool Is this a current diagnosis for this admission?: YesPlan: Hemoglobin and hematocrit stable. Prevacid. Continue to hold Lovenox. (8) Tobacco use disorder Is this a current diagnosis for this admission?: Yes (9) Chronic pain Qualifiers: Chronic pain type: other chronic pain Qualified Code(s): G89.29 - Other chronic pain Is this a current diagnosis for this admission?: YesPlan: Continue Duragesic 75 mcg patch. As needed oxycodone. (10) Opiate dependence, continuous Is this a current diagnosis for this admission?: Yes (11) Anemia Qualifiers: Anemia type: iron deficiency Iron deficiency anemia type: unspecified iron deficiency Qualified Code(s): D50.9 - Iron deficiency anemia, unspecified Is this a current diagnosis for this admission?: Yes (12) Malnutrition Is this a current diagnosis for this admission?: Yes (13) Joan esophagitis Is this a current diagnosis for this admission?: Yes (14) Generalized weakness Is this a current diagnosis for this admission?: YesPlan: Continue physical therapy. Patient may need to go to acute rehab. (15) Depression Qualifiers: Depression Type: unspecified Qualified Code(s): F32.9 - Major depressive disorder, single episode, unspecified Is this a current diagnosis for this admission?: YesPlan: Continue Prozac. This may improve also with weaning off corticosteroids. - Time Time Spent with patient: 35 or more minutes Anticipated discharge: Home with Homehealth
[2016-08-10] MEDS ORDERED: CLONIDINE 0.2 MG/24 HR PATCH.TDWK TD SCH (10:00)
[2016-08-10] MEDS ORDERED: METHYLPREDNISOLONE INJ 40 MG/1 ML SDV IV SCH (10:00)
--- NOTE | 2016-08-10 10:01 | RADIOLOGY REPORT (SQ) ---
EXAM DESCRIPTION: KEYLA SWALLOW COMPLETED DATE/TIME: 08/08/2016 3:38 pm REASON FOR STUDY: s/s of aspiration recent extubation COMPARISON: None. TECHNIQUE: Videofluoroscopic swallowing examination was performed in conjunction with speech patholo gy. Videofluoroscopic imaging was obtained and reviewed and these are the findings: RADIATION DOSE: 28 seconds of fluoroscopy was used. 1 images saved to PACS. LIMITATIONS: None FINDINGS: The patient was brought into the fluoro room and placed upright on a modified barium swall ow chair. The patient was then given multiple consistencies mixed with barium to swallow under live fluoroscopic video guidance. According to the Speech Pathologist there was no penetration or aspirat ion. IMPRESSION: NO EVIDENCE OF PENETRATION OR ASPIRATION.PLEASE SEE SPEECH PATHOLOGIST REPORT FOR OTHER FINDINGS AND RECOMMENDATIONS. COMMENT: Quality ID [id number]: Final reports for procedures using fluoroscopy that document radiation exp osure indices, or exposure time and number of fluorographic images (if radiation exposure indices are not available) TECHNICAL DOCUMENTATION: JOB ID: [id number] [employer]- All Rights Reserved
[2016-08-10] MEDS ORDERED: METHYLPREDNISOLONE INJ 40 MG/1 ML SDV IV ONE (12:00)
[2016-08-10] MEDS: OXYCODONE HCL IR 5 MG TABLET PO PRN (20:00)
[2016-08-10] MEDS: MONTELUKAST SODIUM 10 MG TABLET PO SCH (22:14)
[2016-08-11] MEDS: OXYCODONE HCL IR 5 MG TABLET PO PRN ×4 (01:47→22:31)
[2016-08-11] MEDS: LEVALBUTEROL HCL NEB 1.25 MG/3 ML AMPUL NEB SCH ×2 (01:53→08:38)
[2016-08-11] MEDS: ACETAMINOPHEN 325 MG TABLET PO PRN (05:44)
[2016-08-11] MEDS: ALPRAZOLAM 0.5 MG TABLET PO PRN ×3 (05:45→18:24)
[2016-08-11] MEDS: BUDESONIDE NEB 0.5 MG/2 ML AMPUL NEB SCH ×2 (08:38→20:24)
[2016-08-11 09:15] LABS: ABSOLUTE LYMPHOCYTES (AUTO) 1.2 10^3/uL (0.5-4.7); ABSOLUTE MONOCYTES (AUTO) 0.7 10^3/uL (0.1-1.4); ABSOLUTE NEUT (AUTO) 12.4 10^3/uL (1.7-8.2); BASOPHILS % (AUTO) 0.2 % (0-2); EOSINOPHILS % (AUTO) 0.2 % (0-6); HEMATOCRIT 35.8 % (36.0-47.0); HEMOGLOBIN 11.7 g/dL (12.0-15.5); HGB HCT DIFFERENCE -0.7; LYMPHOCYTES % (AUTO) 8.4 % (13-45); MEAN CORPUSCULAR HGB CONC 32.6 g/dL (32.0-36.0); MEAN CORPUSCULAR VOLUME 92 fl (80-97); MONOCYTES % (AUTO) 4.6 % (3-13); RED CELL DISTRIBUTION WIDTH 15.2 % (11.5-14.0); SEGMENTED NEUTROPHILS % (AUTO) 86.6 % (42-78); WHITE BLOOD COUNT 14.3 10^3/uL (4.0-10.5)
[2016-08-11 09:36] LABS: ANION GAP 8 (5-19); BLOOD UREA NITROGEN 19 mg/dL (7-20); CALCIUM 9.4 mg/dL (8.4-10.2); CARBON DIOXIDE 35 mmol/L (22-30); CHLORIDE 95 mmol/L (98-107); CREATININE RESULT 0.55 mg/dL (0.52-1.25); GLUCOSE 138 mg/dL (75-110); POTASSIUM 4.2 mmol/L (3.6-5.0); SODIUM 137.7 mmol/L (137-145)
[2016-08-11] MEDS: METHYLPREDNISOLONE INJ 40 MG/1 ML SDV IV SCH (10:00)
--- NOTE | 2016-08-11 10:08 | PDOC PROGRESS REPORT ---
Subjective Progress Note for:: 08/11/16 Subjective:: Shortness of breath much improved. No fever, chills, headache, chest pain, abdominal pain, nausea, vomiting. Anxiety and depression improving. Physical Exam Vital Signs: Temp Pulse Resp BP Pulse Ox 98.4 F 97 16 151/74 H 93 08/11/16 07:56 08/11/16 07:56 08/11/16 07:56 08/11/16 07:56 08/11/16 07:56 Intake & Output 08/10/16 08/11/16 08/12/16 06:59 06:59 06:59 Intake Total 1582 1026 Output Total 2800 2700 Balance -1218 -5014 Weight 56.7 kg 54.1 kg GENERAL: No acute distress HEENT: Conjunctiva clear, nonicteric, moist mucous membranes, no JVD, midline trachea RESPIRATORY: Rhonchi noted in bilateral posterior lung bases, no wheezing CARDIAC: Regular rate and rhythm, no murmurs/gallops/rubs ABDOMEN: Soft, nondistended, nontender, positive bowel sounds, no rebound, no guarding EXTREMETIES: No edema, cyanosis, clubbing NEUROLOGIC: Alert, oriented to person/place/time, CN's grossly intact, no focal deficits SKIN: No rash, wounds PSYCH: Normal mood, normal affect Results Laboratory Results: 08/11/16 08:55 08/11/16 08:55 08/11/16 08/11/16 08:55 08:55 WBC 14.3 H RBC 3.90 Hgb 11.7 L Hct 35.8 L MCV 92 MCH 30.0 MCHC 32.6 RDW 15.2 H Plt Count 214 Seg Neutrophils % 86.6 H Lymphocytes % 8.4 L Monocytes % 4.6 Eosinophils % 0.2 Basophils % 0.2 Absolute Neutrophils 12.4 H Absolute Lymphocytes 1.2 Absolute Monocytes 0.7 Absolute Eosinophils 0.0 Absolute Basophils 0.0 Sodium 137.7 Potassium 4.2 Chloride 95 L Carbon Dioxide 35 H Anion Gap 8 BUN 19 Creatinine 0.55 Est GFR ( Amer) > 60 Est GFR (Non-Af Amer) > 60 Glucose 138 H Calcium 9.4 08/07/16 13:25 NT-Pro-B Natriuret Pep 2110 H Impressions: Chest/Abdomen CTA 08/06/16 00:00 IMPRESSION: 1. There are chronic lung and pleural changes. 2. There is no evidence of pulmonary embolus. 3. There is a small area of opacity in the right lower lobe that may be inflammatory. This was not present the time of the previous study. 4. There is a fracture of the upper sternum. Modified Barium Swallow 08/08/16 00:00 IMPRESSION: NO EVIDENCE OF PENETRATION OR ASPIRATION.PLEASE SEE SPEECH PATHOLOGIST REPORT FOR OTHER FINDINGS AND RECOMMENDATIONS. Chest X-Ray 08/08/16 06:00 IMPRESSION: Emphysema. Otherwise, no acute radiographic finding in the chest. Assessment & Plan - Diagnosis (1) Acute hypoxemic respiratory failure Is this a current diagnosis for this admission?: YesPlan: Now stable on nasal cannula oxygen. Patient was chronic home oxygen dependent at baseline. Dr. Carlos of pulmonary medicine following. Patient is normally followed by Dr. Galloway the pulmonary medicine, but states she would like to follow-up with Dr. Carlos as she has found Dr. Galloway to be difficult to reach on an outpatient basis. (2) COPD with exacerbation Is this a current diagnosis for this admission?: YesPlan: Discontinue IV Solu-Medrol. Prednisone 40 mg daily. Continue bronchodilators. (3) VAP (ventilator-associated pneumonia) Is this a current diagnosis for this admission?: YesPlan: Sputum culture growing methicillin sensitive staph aureus. Continue doxycycline until 08/15/2016. (4) Hypertension Is this a current diagnosis for this admission?: YesPlan: Increased Catapres patch to 0.2. Continue Norvasc 5 mg daily. As needed IV hydralazine. Pain and anxiety may be contributing. (5) Sternal fracture Is this a current diagnosis for this admission?: Yes (6) Benzodiazepine dependence, continuous Is this a current diagnosis for this admission?: YesPlan: Continue oral Xanax 1 mg every 8 hours as needed. (7) Heme positive stool Is this a current diagnosis for this admission?: YesPlan: Hemoglobin and hematocrit stable. Prevacid. Continue to hold Lovenox. (8) Tobacco use disorder Is this a current diagnosis for this admission?: Yes (9) Chronic pain Qualifiers: Chronic pain type: other chronic pain Qualified Code(s): G89.29 - Other chronic pain Is this a current diagnosis for this admission?: YesPlan: Continue Duragesic 75 mcg patch. As needed oxycodone. (10) Opiate dependence, continuous Is this a current diagnosis for this admission?: Yes (11) Anemia Qualifiers: Anemia type: iron deficiency Iron deficiency anemia type: unspecified iron deficiency Qualified Code(s): D50.9 - Iron deficiency anemia, unspecified Is this a current diagnosis for this admission?: Yes (12) Malnutrition Is this a current diagnosis for this admission?: Yes (13) Joan esophagitis Is this a current diagnosis for this admission?: Yes (14) Generalized weakness Is this a current diagnosis for this admission?: YesPlan: Continue physical therapy. Patient may need to go to acute rehab. (15) Depression Qualifiers: Depression Type: unspecified Qualified Code(s): F32.9 - Major depressive disorder, single episode, unspecified Is this a current diagnosis for this admission?: Yes - Time Time Spent with patient: 35 or more minutes
[2016-08-11] MEDS: LANSOPRAZOLE 30 MG TAB.RAP.DR PO SCH (10:10)
[2016-08-11] MEDS: NYSTATIN 500000 UNIT/5 ML UDCUP PO SCH ×4 (10:10→22:32)
[2016-08-11] MEDS: FLUOXETINE HCL 20 MG CAPSULE PO SCH (10:11)
[2016-08-11] MEDS: DOXYCYCLINE HYCLATE 100 MG TABLET PO SCH ×2 (10:11→22:31)
[2016-08-11] MEDS: CYANOCOBALAMIN (VITAMIN B-12) 1,000 MCG TABLET PO SCH (10:11)
[2016-08-11] MEDS: AMLODIPINE BESYLATE 10 MG TABLET PO SCH (10:11)
[2016-08-11] MEDS: FENTANYL 75 MCG/HR PATCH.TD72 TD SCH (10:12)
[2016-08-11] MEDS: LEVALBUTEROL HCL NEB 1.25 MG/3 ML AMPUL NEB PRN (20:24)
[2016-08-11] MEDS: MONTELUKAST SODIUM 10 MG TABLET PO SCH (22:31)
[2016-08-12] MEDS: ACETAMINOPHEN 325 MG TABLET PO PRN ×3 (01:47→21:40)
[2016-08-12] MEDS: LEVALBUTEROL HCL NEB 1.25 MG/3 ML AMPUL NEB PRN ×2 (01:59→20:39)
[2016-08-12] MEDS: ALPRAZOLAM 0.5 MG TABLET PO PRN ×3 (03:20→21:39)
[2016-08-12] MEDS: OXYCODONE HCL IR 5 MG TABLET PO PRN ×2 (04:59→14:04)
[2016-08-12 06:50] LABS: ABSOLUTE EOSINOPHILS # (AUTO) 0.2 10^3/uL (0.0-0.6); ABSOLUTE LYMPHOCYTES (AUTO) 1.4 10^3/uL (0.5-4.7); ABSOLUTE MONOCYTES (AUTO) 0.6 10^3/uL (0.1-1.4); ABSOLUTE NEUT (AUTO) 8.6 10^3/uL (1.7-8.2); BASOPHILS % (AUTO) 0.2 % (0-2); EOSINOPHILS % (AUTO) 1.8 % (0-6); HEMATOCRIT 33.9 % (36.0-47.0); HEMOGLOBIN 11.2 g/dL (12.0-15.5); HGB HCT DIFFERENCE -0.3; LYMPHOCYTES % (AUTO) 12.6 % (13-45); MEAN CORPUSCULAR HEMOGLOBIN 30.3 pg (27.0-33.4); MEAN CORPUSCULAR VOLUME 92 fl (80-97); MONOCYTES % (AUTO) 5.5 % (3-13); RED BLOOD COUNT 3.68 10^6/uL (3.72-5.28); RED CELL DISTRIBUTION WIDTH 14.9 % (11.5-14.0); SEGMENTED NEUTROPHILS % (AUTO) 79.9 % (42-78); WHITE BLOOD COUNT 10.7 10^3/uL (4.0-10.5)
[2016-08-12 07:02] LABS: ALANINE AMINOTRANSFERASE 37 U/L (9-52); ALBUMIN 3.2 g/dL (3.5-5.0); ALKALINE PHOSPHATASE 77 U/L (38-126); ASPARTATE AMINO TRANSFERASE 16 U/L (14-36); BILIRUBIN,DIRECT 0.3 mg/dL (0.0-0.4); BILIRUBIN,TOTAL 0.7 mg/dL (0.2-1.3); BLOOD UREA NITROGEN 30 mg/dL (7-20); CALCIUM 9.1 mg/dL (8.4-10.2); CARBON DIOXIDE 35 mmol/L (22-30); CREATININE RESULT 0.47 mg/dL (0.52-1.25); GLUCOSE 140 mg/dL (75-110); MAGNESIUM 1.6 mg/dL (1.6-2.3); POTASSIUM 3.7 mmol/L (3.6-5.0); SODIUM 136.7 mmol/L (137-145); TOTAL PROTEIN 5.6 g/dL (6.3-8.2)
[2016-08-12 07:03] LABS: ANION GAP 7 (5-19); CHLORIDE 95 mmol/L (98-107)
[2016-08-12] MEDS: BUDESONIDE NEB 0.5 MG/2 ML AMPUL NEB SCH ×2 (08:04→20:39)
[2016-08-12] MEDS: LANSOPRAZOLE 30 MG TAB.RAP.DR PO SCH (09:03)
[2016-08-12] MEDS: CYANOCOBALAMIN (VITAMIN B-12) 1,000 MCG TABLET PO SCH (09:04)
[2016-08-12] MEDS: AMLODIPINE BESYLATE 10 MG TABLET PO SCH (09:05)
[2016-08-12] MEDS: FLUOXETINE HCL 20 MG CAPSULE PO SCH (09:05)
[2016-08-12] MEDS: NYSTATIN 500000 UNIT/5 ML UDCUP PO SCH ×4 (09:05→21:39)
[2016-08-12] MEDS: DOXYCYCLINE HYCLATE 100 MG TABLET PO SCH ×2 (09:05→21:39)
[2016-08-12] MEDS ORDERED: FENTANYL 100 MCG/HR PATCH.TD72 TD SCH (10:00)
[2016-08-12] MEDS ORDERED: PREDNISONE 20 MG TABLET PO SCH (10:00)
[2016-08-12] MEDS: INSULIN LISPRO 100 UNIT/ML 3 ML VIAL SUBCUT PRN ×2 (12:46→21:49)
--- NOTE | 2016-08-12 13:13 | PDOC PROGRESS REPORT ---
Subjective Progress Note for:: 08/12/16 Subjective:: Shortness of breath much improved. No fever, chills, headache, chest pain, abdominal pain, nausea, vomiting. Anxiety and depression improving. Continued chronic pain. Physical Exam Vital Signs: Temp Pulse Resp BP Pulse Ox 98.8 F 100 17 145/64 H 97 08/12/16 11:37 08/12/16 11:37 08/12/16 11:37 08/12/16 11:37 08/12/16 11:37 Intake & Output 08/11/16 08/12/16 08/13/16 06:59 06:59 06:59 Intake Total 1026 1317 Output Total 2700 600 Balance -1674 717 Weight 54.1 kg 55.4 kg GENERAL: No acute distress HEENT: Conjunctiva clear, nonicteric, moist mucous membranes, no JVD, midline trachea RESPIRATORY: Rhonchi noted in bilateral posterior lung bases, no wheezing CARDIAC: Regular rate and rhythm, no murmurs/gallops/rubs ABDOMEN: Soft, nondistended, nontender, positive bowel sounds, no rebound, no guarding EXTREMETIES: No edema, cyanosis, clubbing NEUROLOGIC: Alert, oriented to person/place/time, CN's grossly intact, no focal deficits SKIN: No rash, wounds PSYCH: Normal mood, normal affect Results Laboratory Results: 08/12/16 05:30 08/12/16 05:30 08/12/16 08/12/16 05:30 05:30 WBC 10.7 H RBC 3.68 L Hgb 11.2 L Hct 33.9 L MCV 92 MCH 30.3 MCHC 33.0 RDW 14.9 H Plt Count 175 Seg Neutrophils % 79.9 H Lymphocytes % 12.6 L Monocytes % 5.5 Eosinophils % 1.8 Basophils % 0.2 Absolute Neutrophils 8.6 H Absolute Lymphocytes 1.4 Absolute Monocytes 0.6 Absolute Eosinophils 0.2 Absolute Basophils 0.0 Sodium 136.7 L Potassium 3.7 Chloride 95 L Carbon Dioxide 35 H Anion Gap 7 BUN 30 H Creatinine 0.47 L Est GFR ( Amer) > 60 Est GFR (Non-Af Amer) > 60 Glucose 140 H Calcium 9.1 Magnesium 1.6 Total Bilirubin 0.7 AST 16 ALT 37 Alkaline Phosphatase 77 Total Protein 5.6 L Albumin 3.2 L 08/07/16 13:25 NT-Pro-B Natriuret Pep 2110 H Impressions: Chest/Abdomen CTA 08/06/16 00:00 IMPRESSION: 1. There are chronic lung and pleural changes. 2. There is no evidence of pulmonary embolus. 3. There is a small area of opacity in the right lower lobe that may be inflammatory. This was not present the time of the previous study. 4. There is a fracture of the upper sternum. Modified Barium Swallow 08/08/16 00:00 IMPRESSION: NO EVIDENCE OF PENETRATION OR ASPIRATION.PLEASE SEE SPEECH PATHOLOGIST REPORT FOR OTHER FINDINGS AND RECOMMENDATIONS. Chest X-Ray 08/08/16 06:00 IMPRESSION: Emphysema. Otherwise, no acute radiographic finding in the chest. Assessment & Plan - Diagnosis (1) Acute hypoxemic respiratory failure Is this a current diagnosis for this admission?: YesPlan: Now stable on nasal cannula oxygen. Patient was chronic home oxygen dependent at baseline. Dr. Carlos of pulmonary medicine following. Patient is normally followed by Dr. Galloway the pulmonary medicine, but states she would like to follow-up with Dr. Carlos as she has found Dr. Galloway to be difficult to reach on an outpatient basis. (2) COPD with exacerbation Is this a current diagnosis for this admission?: YesPlan: Decrease prednisone to 20 mg daily. Continue bronchodilators. (3) VAP (ventilator-associated pneumonia) Is this a current diagnosis for this admission?: YesPlan: Sputum culture growing methicillin sensitive staph aureus. Continue doxycycline until 08/15/2016. (4) Hypertension Is this a current diagnosis for this admission?: YesPlan: Increased Catapres patch to 0.2. Continue Norvasc 5 mg daily. As needed IV hydralazine. Pain and anxiety may be contributing. (5) Sternal fracture Is this a current diagnosis for this admission?: Yes (6) Benzodiazepine dependence, continuous Is this a current diagnosis for this admission?: YesPlan: Continue oral Xanax 1 mg every 8 hours as needed. (7) Heme positive stool Is this a current diagnosis for this admission?: Yes (8) Tobacco use disorder Is this a current diagnosis for this admission?: Yes (9) Chronic pain Qualifiers: Chronic pain type: other chronic pain Qualified Code(s): G89.29 - Other chronic pain Is this a current diagnosis for this admission?: YesPlan: Increase Duragesic to 100 mcg patch. As needed oxycodone. (10) Opiate dependence, continuous Is this a current diagnosis for this admission?: Yes (11) Anemia Qualifiers: Anemia type: iron deficiency Iron deficiency anemia type: unspecified iron deficiency Qualified Code(s): D50.9 - Iron deficiency anemia, unspecified Is this a current diagnosis for this admission?: Yes (12) Malnutrition Is this a current diagnosis for this admission?: Yes (13) Joan esophagitis Is this a current diagnosis for this admission?: Yes (14) Generalized weakness Is this a current diagnosis for this admission?: Yes (15) Depression Qualifiers: Depression Type: unspecified Qualified Code(s): F32.9 - Major depressive disorder, single episode, unspecified Is this a current diagnosis for this admission?: Yes - Time Time Spent with patient: 25-34 minutes Anticipated discharge: Home with Homehealth Within: within 48 hours
[2016-08-12] MEDS: MONTELUKAST SODIUM 10 MG TABLET PO SCH (21:39)
[2016-08-13] MEDS: OXYCODONE HCL IR 5 MG TABLET PO PRN ×2 (01:05→09:00)
[2016-08-13] MEDS: ALPRAZOLAM 0.5 MG TABLET PO PRN (05:47)
[2016-08-13] MEDS: ACETAMINOPHEN 325 MG TABLET PO PRN (05:47)
[2016-08-13] MEDS: LEVALBUTEROL HCL NEB 1.25 MG/3 ML AMPUL NEB PRN (07:40)
[2016-08-13] MEDS: BUDESONIDE NEB 0.5 MG/2 ML AMPUL NEB SCH (07:40)
[2016-08-13] MEDS ORDERED: GLIPIZIDE 5 MG TABLET PO SCH (08:00)
[2016-08-13] MEDS: LANSOPRAZOLE 30 MG TAB.RAP.DR PO SCH (09:00)
[2016-08-13] MEDS: FLUOXETINE HCL 20 MG CAPSULE PO SCH (09:31)
[2016-08-13] MEDS: DOXYCYCLINE HYCLATE 100 MG TABLET PO SCH (09:32)
[2016-08-13] MEDS: CYANOCOBALAMIN (VITAMIN B-12) 1,000 MCG TABLET PO SCH (09:32)
[2016-08-13] MEDS: AMLODIPINE BESYLATE 10 MG TABLET PO SCH (09:32)
[2016-08-13] MEDS: NYSTATIN 500000 UNIT/5 ML UDCUP PO SCH ×2 (09:32→13:19)
[2016-08-13] MEDS ORDERED: PREDNISONE 20 MG TABLET PO SCH (10:00)
[2016-08-13] MEDS ORDERED: LIDOCAINE 5% (700 MG) TRANSDERMAL ADH..PATCH TP SCH (10:00)
[2016-08-13] MEDS ORDERED: OXYCODONE HCL IR 5 MG TABLET PO SCH (12:00)
[2016-08-13 13:37] VITALS: BP 117/59
--- NOTE | 2016-08-13 22:32 | Progress Note ---
Provider Note Provider Note: Appreciate palliaitive care consult with this 56 year old woman who was admitted with respiratory failure on 08/02, Palliative cansult was written on 08/09 but unfortunately I was OOT until today. I did see Ms Garcia before she was discharged home. She states she is not having much dyspnea now and is only on 2 liters oxygen. She is going home with bipap and agrees to continue her medication. She lives with her step father and her son. She has been admitted multiple times with respiratory distress. She is on opiods for chronic pain and benzodiazapines for chronic anxiety. I discussed palliaitve care visits at home to help her with her symptoms and issues, and gave her my card /brochure. She said she would ask her doctor about having me to visit at home as she often misses her doctors appointments. WIll be happy to follow at home if PCP or on air announcer consults. Patient denies any untreated problems at present.
--- NOTE | 2016-08-15 19:37 | PDOC DISCHARGE SUMMARY ---
General - Admit/Disc Date/PCP Admission Date/Primary Care Provider: 07/28/16 10:37 Dr. Hardy Discharge Date: 08/13/16 - Discharge Diagnosis (1) VAP (ventilator-associated pneumonia) Is this a current diagnosis for this admission?: Yes (2) COPD with exacerbation Is this a current diagnosis for this admission?: Yes (3) Hypophosphatemia Is this a current diagnosis for this admission?: Yes (4) Acute hypoxemic respiratory failure Is this a current diagnosis for this admission?: Yes (5) Depression Is this a current diagnosis for this admission?: Yes (6) Opiate dependence, continuous Is this a current diagnosis for this admission?: Yes (7) Anemia Is this a current diagnosis for this admission?: Yes (8) Tobacco use disorder Is this a current diagnosis for this admission?: Yes (9) Benzodiazepine dependence, continuous Is this a current diagnosis for this admission?: Yes (10) Chronic pain Is this a current diagnosis for this admission?: Yes - Additional Information Resuscitation Status: Do Not Resuscitate Discharge Diet: Cardiac Discharge Activity: Activity As Tolerated Home Medications: Albuterol Sulfate [Ventolin HFA MDI 18 GM] 2 puff IH QID 07/29/16 Alprazolam [Xanax] 2 mg PO Q8HP PRN 07/29/16 Budesonide/Formoterol Fumarate [Symbicort HFA 160-4.5 mcg Inhaler 6 gm] 2 puff IH Q12 07/29/16 Cholecalciferol (Vitamin D3) [Vitamin D3 5000 unit Capsule] 5,000 unit PO DAILY 07/29/16 Cyanocobalamin (Vitamin B-12) [B-12] 2,500 mcg SL DAILY 07/29/16 Docusate Sodium [Colace 100 mg Capsule] 100 mg PO DAILYP PRN 07/29/16 Fentanyl [Duragesic 75 Mcg/Hr Transdermal Patch] 1 each TD Q2D 07/29/16 Ferrous Sulfate [Feosol 325 mg Tablet] 325 mg PO TID 07/29/16 Fluoxetine HCl [Prozac] 40 mg PO DAILY 07/29/16 Lactulose 10 gm PO BID 07/29/16 Magnesium Oxide 250 mg PO DAILY 07/29/16 Melatonin 3 mg PO Q72HP PRN 07/29/16 Montelukast Sodium [Singulair 10 mg Tablet] 10 mg PO QHS 07/29/16 Nystatin 500,000 unit PO QID 07/29/16 Omeprazole 20 mg PO QAM 07/29/16 Oxycodone HCl 15 mg PO Q8HP PRN 07/29/16 Ranitidine HCl [Zantac 150 mg Tablet] 150 mg PO BIDP PRN 07/29/16 Roflumilast [Daliresp 500 mcg Tablet] 500 mcg PO DAILY 07/29/16 Sodium Chloride/Aloe Vera [Saline Nasal Gel] 1 applic NASL Q3HP PRN 07/29/16 Tiotropium [place] [Spiriva Respimat] 2 puff IH QAM 07/29/16 Clonidine [Catapres-Tts 2 (0.2 mg/24 Hr) Transderm Ptch] 1 each TD Sa@10 #12 patch.tdwk 08/13/16 Glipizide [Glucotrol 5 mg Tablet] 5 mg PO BIDACBS #60 tablet 08/13/16 Lidocaine [Lidoderm 5% (700 mg) Transdermal Patch] 1 patch TP DAILY #30 adh..patch 08/13/16 Montelukast Sodium [Singulair 10 mg Tablet] 10 mg PO QHS #30 tablet 08/13/16 Nystatin [Mycostatin 500,000 Unit/5 ml Susp Udcup] 500,000 unit PO QID #120 udc 08/13/16 Prednisone [Deltasone 20 mg Tablet] 20 mg PO DAILY #5 tablet 08/13/16 History of Present Illness History of Present Illness: See H&P for full HPI Hospital Course Hospital Course: MIRIAM CASTILLO is a 56 year old female with a past medical history of oxygen dependent COPD and emphysema and chronic opiate and benzodiazepine dependency who was found to be saturating in the 80s and brought into the emergency department. Patient was found in the emergency department to be saturating proximally 84% was placed on a nonrebreather and subsequently patient came high hypercapnic and unresponsive toxic requiring intubation. H&P for full HPI of these events. Patient was intubated and taken to the ICU. On day #2, extubation was attempted; however, patient failed initial extubation which is felt to be likely secondary to hypophosphatemia. Patient was reintubated and subsequently developed infiltrate and sputum that was productive of citrobacter freundii, staph aureus. Patient's antibiotics were tailored to this and she was treated for ventilator associated pneumonia. Patient was successfully extubated. Steroids were tapered and transitioned to oral prednisone. After extubation on 08/08/2016 patient continued to have shortness of breath and repeat CT was performed which revealed a fracture of the upper part of her sternum that had not previously been present. Apparently sustained multiple falls prior to admission and this was felt to be the etiology likely of this. And expressed concerns about her pain regimen, and was redirected to her primary care physician who has been managing this. Afterwards, she remained somewhat weak, but with physical therapy improved to the point of being able to be discharged home with home health. Her hospital course was unremarkable. Physical Exam Vital Signs: Temp Pulse Resp BP Pulse Ox 98.2 F 101 H 19 117/59 L 96 08/13/16 13:31 08/13/16 13:31 08/13/16 13:31 08/13/16 13:31 08/13/16 13:31 Intake & Output 08/14/16 08/15/16 08/16/16 06:59 06:59 06:59 Intake Total 425 Output Total 250 Balance 175 Exam: General: awake, alert, oriented x3, NAD HEENT: AT/NC, PERRL, oropharynx is moist, pink, no scleral icterus, no conjunctival injection, Neck: No JVD, trachea midline Chest: CTAB CV: Tachycardia, regular rate and rhythm, normal S1 and S2, no murmur, rub, or gallop Abdomen: Soft, nontender to palpation, nondistended, hyperactive bowel sounds; no rebound, rigidity, or guarding Extremities: No cyanosis, clubbing or edema, large right hand ecchymosis Neuro: CN grossly intact, Psych: normal mood and affect Results Laboratory Results: 08/12/16 05:30 08/12/16 05:30 08/07/16 13:25 NT-Pro-B Natriuret Pep 2110 H Impressions: Chest/Abdomen CTA 08/06/16 00:00 IMPRESSION: 1. There are chronic lung and pleural changes. 2. There is no evidence of pulmonary embolus. 3. There is a small area of opacity in the right lower lobe that may be inflammatory. This was not present the time of the previous study. 4. There is a fracture of the upper sternum. Modified Barium Swallow 08/08/16 00:00 IMPRESSION: NO EVIDENCE OF PENETRATION OR ASPIRATION.PLEASE SEE SPEECH PATHOLOGIST REPORT FOR OTHER FINDINGS AND RECOMMENDATIONS. Chest X-Ray 08/08/16 06:00 IMPRESSION: Emphysema. Otherwise, no acute radiographic finding in the chest. Qualifiers PATEINT BEING DISCHARGED WITH ANY OF THE FOLLOWING DIAGNOSIS?: No Plan Time Spent: Greater than 30 Minutes
--- NOTE | 2016-08-26 12:59 | PDOC PROGRESS REPORT ---
Subjective Progress Note for:: 08/12/16 Subjective:: stable w/o complaints Physical Exam Vital Signs: Temp Pulse Resp BP Pulse Ox 98.2 F 101 H 19 117/59 L 96 08/13/16 13:31 08/13/16 13:31 08/13/16 13:31 08/13/16 13:31 08/13/16 13:31 Intake & Output 08/12/16 08/13/16 08/14/16 06:59 06:59 06:59 Intake Total 1317 790 425 Output Total 600 650 250 Balance 717 140 175 Weight 55.4 kg General appearance: PRESENT: no acute distress, disheveled, thin, well-developed Head exam: PRESENT: normocephalic Eye exam: PRESENT: conjunctiva pale Mouth exam: PRESENT: dry mucosa, neck supple Neck exam: ABSENT: carotid bruit, JVD, lymphadenopathy, thyromegaly Respiratory exam: PRESENT: decreased breath sounds, prolonged expiratory phas, rhonchi, symmetrical, unlabored Cardiovascular exam: PRESENT: RRR, +S1, +S2 Pulses: PRESENT: normal radial pulses GI/Abdominal exam: PRESENT: normal bowel sounds, soft. ABSENT: distended, guarding, mass, organolmegaly, rebound, tenderness Rectal exam: PRESENT: deferred Musculoskeletal exam: PRESENT: normal inspection Neurological exam: PRESENT: awake Skin exam: PRESENT: dry, warm Results Laboratory Results: 08/12/16 05:30 08/12/16 05:30 08/07/16 13:25 NT-Pro-B Natriuret Pep 2110 H Impressions: Chest/Abdomen CTA 08/06/16 00:00 IMPRESSION: 1. There are chronic lung and pleural changes. 2. There is no evidence of pulmonary embolus. 3. There is a small area of opacity in the right lower lobe that may be inflammatory. This was not present the time of the previous study. 4. There is a fracture of the upper sternum. Modified Barium Swallow 08/08/16 00:00 IMPRESSION: NO EVIDENCE OF PENETRATION OR ASPIRATION.PLEASE SEE SPEECH PATHOLOGIST REPORT FOR OTHER FINDINGS AND RECOMMENDATIONS. Chest X-Ray 08/08/16 06:00 IMPRESSION: Emphysema. Otherwise, no acute radiographic finding in the chest. Assessment & Plan - Diagnosis (1) COPD (chronic obstructive pulmonary disease) Qualifiers: COPD type: unspecified COPD Qualified Code(s): J44.9 - Chronic obstructive pulmonary disease, unspecified Is this a current diagnosis for this admission?: Yes (2) Hypoxemia Is this a current diagnosis for this admission?: No (3) Respiratory distress Is this a current diagnosis for this admission?: No (4) Tobacco use disorder Is this a current diagnosis for this admission?: Yes
== END 2016-08-13 14:16 | disposition home health service (06) | DRG 207 ==
LOC: ER 07:49 → UNDOADMIN 09:57 → EH 09:57 → ICU 15:16 → 3S 08-08 11:08
PROC: 0BH17EZ Insertion of Endotracheal Airway into Trachea, Via Natural or Artificial Opening (ICD-10-PCS; principal; 2016-08-04)
PROC: 5A1955Z Respiratory Ventilation, Greater than 96 Consecutive Hours (ICD-10-PCS; 2016-08-04)
PROC: 02HV33Z Insertion of Infusion Device into Superior Vena Cava, Percutaneous Approach (ICD-10-PCS; 2016-08-04)
PROC: B548ZZA Ultrasonography of Superior Vena Cava, Guidance (ICD-10-PCS; 2016-08-04)
DX: J96.21 Acute and chronic respiratory failure with hypoxia (principal); J44.1 Chronic obstructive pulmonary disease with (acute) exacerbation; J95.851 Ventilator associated pneumonia; S22.20XA Unspecified fracture of sternum, initial encounter for closed fracture; E46 Unspecified protein-calorie malnutrition; B37.81 Candidal esophagitis; F11.20 Opioid dependence, uncomplicated; F13.20 Sedative, hypnotic or anxiolytic dependence, uncomplicated; E87.6 Hypokalemia; G89.29 Other chronic pain; R19.5 Other fecal abnormalities; E87.5 Hyperkalemia; D50.9 Iron deficiency anemia, unspecified; E11.9 Type 2 diabetes mellitus without complications; F31.9 Bipolar disorder, unspecified; I10 Essential (primary) hypertension; E83.39 Other disorders of phosphorus metabolism; F32.9 Major depressive disorder, single episode, unspecified; Z66 Do not resuscitate; Z79.899 Other long term (current) drug therapy; Z99.81 Dependence on supplemental oxygen; W19.XXXA Unspecified fall, initial encounter; Y93.9 Activity, unspecified; Y92.9 Unspecified place or not applicable; Y99.9 Unspecified external cause status; I25.2 Old myocardial infarction; F17.200 Nicotine dependence, unspecified, uncomplicated; Z88.8 Allergy status to other drugs, medicaments and biological substances
CPT/HCPCS: 31500; 36415; 36600; 71010; 71275; 74230; 80048; 80053; 81001; 82272; 82550; 82553; 82803; 82962; 83735; 83880; 84100; 84134; 84484; 85025; 85027; 85610; 86701; 87040; 87070; 87077; 87086; 87186; 87205; 87493; 93005; 93010; 94002; 94003; 94640; 94660; 94799; 99291; 99406; A9270-GY; C1751; G8978-GP; G8979-GP; G8996-GN; G8997-GN; G8998-GN; J0295; J0330; J0360; J0696; J1100; J1170; J1200; J1630; J1642; J1650; J1815; J1940; J1956; J2060; J2250; J2310; J2543; J2704; J2920; J2930; J3480; J3490; J7030; J7040; J7512; J7614; J7620; J7685; S0164

== ENCOUNTER → 2016-09-09 | Outpatient (CLI) | payer MEDICARE, MEDICAID | LOC: OD 15:49 | PROVIDERS: ATTEND Obstetrics & Gynecology | DX: I50.9 Heart failure, unspecified (principal) | CPT/HCPCS: 36415; 83880 ==

== ENCOUNTER 2017-05-05 09:03 | Inpatient (IN) | payer MEDICARE, MEDICAID ==
[2017-05-05] MEDS ORDERED: IPRATROPIUM/ALBUTEROL 0.5-2.5 MG/3 ML AMPUL NEB ONE ×2 (09:32→12:18)
[2017-05-05] MEDS ORDERED: METHYLPREDNISOLONE INJ 125 MG/2 ML SDV IV ONE (09:32)
--- NOTE | 2017-05-05 09:38 | ER Document Report ---
ED Respiratory Problem - General Chief Complaint: Breathing Difficulty Stated Complaint: DIFFICULTY BREATHING Time Seen by Provider: 05/05/17 09:24 Mode of Arrival: Ambulatory Information source: Patient TRAVEL OUTSIDE OF THE [place] IN LAST 30 DAYS: No - HPI Duration: No: Better, Continuous, Gone now, Intermittent episodes, Worse/ persistent Initiating Event: No: Allergy, Aspiration/Choking, Exertion, Exposure to chemicals, Exposure to dust, Exposure to fumes, Exposure to mold, Exposure to smoke, Out of meds, Sports/exercise, URI, Other Quality of pain: denies: No pain, Achy, Burning, Cramping, Dull, Fullness, Pressure, Sharp, Stabbing, Throbbing, Other - Related Data Allergies/Adverse Reactions: morphine Allergy (Severe, Verified 07/28/16 08:18) Hallucinations clindamycin [Clindamycin] Allergy (Verified 07/28/16 08:18) Past Medical History - General Information source: Patient - Social History Smoking Status: Current Every Day Smoker Cigarette use (# per day): Yes Chew tobacco use (# tins/day): No Smoking Education Provided: Yes Frequency of alcohol use: Rare Drug Abuse: None Lives with: Family Family History: COPD, Hypertension Patient has suicidal ideation: No Patient has homicidal ideation: No - Past Medical History Cardiac Medical History: Reports: Hx Heart Attack, Hx Hypercholesterolemia Pulmonary Medical History: Reports: Hx Asthma, Hx COPD, Hx Sleep Apnea Denies: Hx Tuberculosis Neurological Medical History: Denies: Hx Seizures Endocrine Medical History: Reports: Hx Diabetes Mellitus Type 2 Renal/ Medical History: Denies: Hx Peritoneal Dialysis Malignancy Medical History: Denies: None, Hx Bone Cancer, Hx Brain Cancer, Hx Breast Cancer, Hx Cervical Cancer, Hx Colorectal Cancer, Hx Leukemia, Hx Liver Cancer, Hx Lung Cancer, Hx Lymphoma, Hx Ovarian Cancer, Hx Pancreatic Cancer, Hx Renal (Kidney) Cancer, Hx Skin Cancer, Other GI Medical History: Denies: None, Hx Cirrhosis, Hx Crohn's Disease, Hx Diverticulitis, Hx Gastritis, Hx Gastroesophageal Reflux Disease, Hx Hepatitis, Hx Hiatal Hernia, Hx Irritable Bowel, Hx Liver Failure, Hx Pancreatitis, Hx Ulcer, Hx Ulcerative Colitis, Hx Colonoscopy, Hx Endoscopic Retrograde Cholangio , Hx Endoscopy, Other Musculoskeltal Medical History: Reports Hx Arthritis, Reports Hx Fibromyalgia, Reports Hx Musculoskeletal Deformity, Reports Hx Musculoskeletal Trauma Psychiatric Medical History: Reports: Hx Anxiety, Hx Bipolar Disorder, Hx Depression Past Surgical History: Reports: Hx Orthopedic Surgery - shoulder bilateral, Hx Tubal Ligation, Other - Vagal nerve stimulator. Denies: Hx Hysterectomy, Hx Pacemaker - Immunizations Immunizations up to date: Yes Hx Diphtheria, Pertussis, Tetanus Vaccination: Yes Review of Systems - Review of Systems Constitutional: denies: No symptoms reported, See HPI, Chills, Diaphoresis, Fever, Malaise, Weakness, Other, Weight gain, Weight loss, Recent illness EENT: denies: No symptoms reported, See HPI, Eye pain, Eye discharge, Blurred vision, Tearing, Double vision, Ear pain, Ear discharge, Nose pain, Nose congestion, Nose discharge, Sinus pressure, Sinus discharge, Throat pain, Difficulty swallowing, Throat swelling, Mouth pain, Mouth swelling, Dental problem, Vertigo, Other Cardiovascular: denies: No symptoms reported, See HPI, Chest pain, Palpitations , Heart racing, Orthopnea, Dyspnea, Syncope, Dizziness, Lightheaded, Edema, Other, Paroxysmal Nocturnal Dysp Gastrointestinal: See HPI Genitourinary: denies: No symptoms reported, See HPI, Burning, Dysuria, Discharge, Frequency, Flank pain, Hematuria, Incontinence, Pain, Urgency, Retention, Other Female Genitourinary: denies: No symptoms reported, See HPI, Last menstrual period, , Post menopausal, Heavy/abnormal periods, Irregular period, Vaginal bleeding, Vaginal discharge, Vaginal odor, Painful intercourse, Other Musculoskeletal: denies: No symptoms reported, See HPI, Back pain, Gout, Joint pain, Joint swelling, Muscle pain, Muscle stiffness, Neck pain, Deformity, Leg swelling, Ankle swelling, Other Skin: denies: No symptoms reported, See HPI, Change in color, Change in hair/ nails, Dryness, Lesions, Lumps, Rash, Other Physical Exam - Vital signs Vitals: Resp BP Pulse Ox 27 H 193/86 H 86 L 05/05/17 09:10 05/05/17 09:10 05/05/17 09:10 - Notes Notes: PHYSICAL EXAMINATION: GENERAL: Cachexia of emphysema, looks older than her age, on oxygen HEAD: Atraumatic, normocephalic. EYES: Pupils equal round and reactive to light, extraocular movements intact, conjunctiva are normal. ENT: Nares dried blood noted, oropharynx clear without exudates. Moist mucous membranes. NECK: Normal range of motion, supple without lymphadenopathy LUNGS: Bilaterally diffuse expiratory wheezing throughout the lung field. No inspiratory rales HEART: Regular rate and rhythm without murmurs ABDOMEN: Soft, nontender, nondistended abdomen. No guarding, no rebound. No masses appreciated. Female : deferred Musculoskeletal: Normal range of motion, no pitting or edema. No cyanosis. NEUROLOGICAL: Cranial nerves grossly intact. Normal speech, normal gait. Normal sensory, motor exams PSYCH: Normal mood, normal affect. SKIN: Warm, Dry, normal turgor, no rashes or lesions noted. Course - Re-evaluation Re-evalutation: 05/05/17 11:08 Given bronchodilator treatment, discussed with the hospital staff and currently being admitted - Vital Signs Vital signs: Temp Pulse Resp BP Pulse Ox 98.2 F 27 H 155/89 H 95 05/05/17 09:13 05/05/17 10:01 05/05/17 10:00 05/05/17 10:01 - Laboratory Result Diagrams: 05/05/17 09:15 05/05/17 09:15 Laboratory results interpreted by me: 05/05/17 05/05/17 09:15 09:15 Seg Neutrophils % 81.4 H Chloride 91 L Carbon Dioxide 39 H Creatinine 0.46 L Glucose 126 H Total Protein 5.8 L Albumin 3.3 L - EKG Interpretation by Me Rate: Tachycardia - 102 When compared to previous EKG there are: No significant change - Sinus tach at the rate of 102 bpm normal axis, no acute ST elevation ST depression T-wave inversion noted. Discharge - Discharge Clinical Impression: COPD with acute exacerbation Condition: Poor Admitting Provider: Hospitalist - Going off in her matter do that right now is doing Unit Admitted: Telemetry
[2017-05-05] MEDS: NORMAL SALINE 1000 ML 1,000 ML IV PRN (09:47)
--- NOTE | 2017-05-05 09:53 | RADIOLOGY REPORT (SQ) ---
EXAM DESCRIPTION: CHEST SINGLE VIEW COMPLETED DATE/TIME: 05/05/2017 9:42 am REASON FOR STUDY: Shortness of breath shortness of breath COMPARISON: None. EXAM PARAMETERS: NUMBER OF VIEWS: One view. TECHNIQUE: Single frontal radiographic view of the chest acquired. RADIATION DOSE: NA LIMITATIONS: None. FINDINGS: LUNGS AND PLEURA: Hyperinflation lungs consistent with COPD. Fibrotic scarring in lung b ases. Bilateral pleural thickening. MEDIASTINUM AND HILAR STRUCTURES: No masses. Contour normal. HEART AND VASCULAR STRUCTURES: Heart normal in size. Normal vasculature. BONES: Old healed fractures right posterior ribs. OTHER: Interval removal of right IJ line. Radiopaque monitor device over left upper chest. Postsurg ical changes of humeri. Postsurgical or posttraumatic changes right posterior 5th rib. Old fracture deformity right posterior 7th rib. IMPRESSION: COPD. Chronic bilateral interstitial changes and pleural thickening. TECHNICAL DOCUMENTATION: JOB ID: [id number] 2010 [employer]- All Rights Reserved Reading location - IP/workstation name: [email or web address]
[2017-05-05 10:00] LABS: ABSOLUTE MONOCYTES (AUTO) 0.3 10^3/uL (0.1-1.4); ABSOLUTE NEUT (AUTO) 5.9 10^3/uL (1.7-8.2); BASOPHILS % (AUTO) 0.2 % (0-2); EOSINOPHILS % (AUTO) 0.5 % (0-6); HEMATOCRIT 38.2 % (36.0-47.0); HEMOGLOBIN 12.9 g/dL (12.0-15.5); LYMPHOCYTES % (AUTO) 13.7 % (13-45); MEAN CORPUSCULAR HGB CONC 33.7 g/dL (32.0-36.0); MEAN CORPUSCULAR VOLUME 95 fl (80-97); MONOCYTES % (AUTO) 4.2 % (3-13); PLATELET COUNT 353 10^3/uL (150-450); RED BLOOD COUNT 4.02 10^6/uL (3.72-5.28); RED CELL DISTRIBUTION WIDTH 12.1 % (11.5-14.0); SEGMENTED NEUTROPHILS % (AUTO) 81.4 % (42-78); TOTAL CELLS COUNTED % (AUTO) 100 %; WHITE BLOOD COUNT 7.2 10^3/uL (4.0-10.5)
[2017-05-05 10:06] LABS: ALANINE AMINOTRANSFERASE 19 U/L (9-52); ALBUMIN 3.3 g/dL (3.5-5.0); ALKALINE PHOSPHATASE 107 U/L (38-126); ASPARTATE AMINO TRANSFERASE 17 U/L (14-36); BILIRUBIN,DIRECT 0.1 mg/dL (0.0-0.4); BILIRUBIN,TOTAL 0.2 mg/dL (0.2-1.3); BLOOD UREA NITROGEN 11 mg/dL (7-20); CALCIUM 9.2 mg/dL (8.4-10.2); CHLORIDE 91 mmol/L (98-107); GLUCOSE 126 mg/dL (75-110); POTASSIUM 4.4 mmol/L (3.6-5.0); SODIUM 137.4 mmol/L (137-145); TOTAL PROTEIN 5.8 g/dL (6.3-8.2)
[2017-05-05 10:07] LABS: APPEARANCE,URINE CLEAR; BILIRUBIN,URINE NEGATIVE (NEGATIVE); COLOR,URINE YELLOW; GLUCOSE, URINE NEGATIVE (NEGATIVE); KETONES,URINE NEGATIVE (NEGATIVE); LEUKOCYTE ESTERASE,URINE NEGATIVE (NEGATIVE); NITRITE,URINE NEGATIVE (NEGATIVE); PROTEIN,URINE NEGATIVE (NEGATIVE); URINE SPECIFIC GRAVITY 1.008; UROBILINOGEN,URINE NEGATIVE mg/dL (<2.0)
[2017-05-05 10:13] LABS: ANION GAP 7 (5-19); CARBON DIOXIDE 39 mmol/L (22-30)
[2017-05-05 10:15] LABS: CREATINE KINASE MB 2.64 ng/mL (<4.55); NT PRO BNP 226 pg/mL (5-900)
[2017-05-05 10:20] LABS: TROPONIN I < 0.012 ng/mL
[2017-05-05] MEDS ORDERED: LORAZEPAM INJ 2 MG/1 ML VIAL IV ONE (12:09)
--- NOTE | 2017-05-05 13:46 | EKG REPORT ---
SEVERITY:- ABNORMAL ECG - SINUS TACHYCARDIA RIGHT ATRIAL ABNORMALITY : Confirmed by: Elmer Perea MD 05-May-2017 13:45:17
[2017-05-05] MEDS ORDERED: IPRATROPIUM/ALBUTEROL 0.5-2.5 MG/3 ML AMPUL NEB PRN (15:01)
[2017-05-05] MEDS ORDERED: MAGNESIUM HYDROXIDE SUSP 30 ML UDCUP PO PRN (15:01)
[2017-05-05] MEDS ORDERED: TEMAZEPAM 7.5 MG CAPSULE PO PRN (15:01)
[2017-05-05] MEDS: METHYLPREDNISOLONE INJ 40 MG/1 ML SDV IV SCH ×2 (17:24→23:09)
[2017-05-05] MEDS: ALPRAZOLAM 0.5 MG TABLET PO SCH ×2 (17:24→22:29)
[2017-05-05] MEDS: HALOPERIDOL 1 MG TABLET PO PRN (17:24)
[2017-05-05] MEDS: NYSTATIN 500000 UNIT/5 ML UDCUP PO SCH ×2 (17:25→22:28)
[2017-05-05] MEDS ORDERED: (PENDING PHARMACY ID) (Buspirone Hcl [Buspar 5 Mg Tablet] 5 MG) PO SCH (18:00)
[2017-05-05] MEDS ORDERED: (PENDING PHARMACY ID) (Fluticasone Propionate [Flovent Hfa 220 Mcg Mdi] 1 PUFF) IH SCH (18:00)
--- NOTE | 2017-05-05 18:13 | PDOC H&P ---
History of Present Illness Admission Date/PCP: 05/05/17 12:24 DARLEEN MUELLER MD Patient complains of: Difficulty breathing and shortness of breath prompting emergency room visit today History of Present Illness: MIRIAM CASTILLO is a 56 year old female Past Medical History Cardiac Medical History: Reports: Myocardial Infarction, Hyperlipidema Pulmonary Medical History: Reports: Asthma, Chronic Obstructive Pulmonary Disease (COPD), Sleep Apnea Denies: Tuberculosis Neurological Medical History: Denies: Seizures Endocrine Medical History: Reports: Diabetes Mellitus Type 2 Malignancy Medical History: Denies: None, Bone Cancer, Brain Cancer, Breast Cancer, Cervical Cancer, Colorectal Cancer, Leukemia, Liver Cancer, Lung Cancer, Lymphoma, Ovarian Cancer , Pancreatic Cancer, Renal (Kidney) Cancer, Skin Cancer, Other GI Medical History: Denies: None, Cirrhosis, Crohn's Disease, Diverticulitis, Gastroesophageal Reflux Disease, Hepatitis, Hiatal Hernia, Ulcerative Colitis, Other Musculoskeltal Medical History: Reports: Arthritis, Fibromyalgia Psychiatric Medical History: Reports: Bipolar Disorder, Depression Hematology: Reports: Anemia Past Surgical History Past Surgical History: Reports: Orthopedic Surgery - shoulder bilateral, Tubal Ligation, Other - Vagal nerve stimulator Denies: Hysterectomy, Pacemaker Social History Information Source: Patient Lives with: Family Smoking Status: Current Every Day Smoker Frequency of Alcohol Use: None Hx Recreational Drug Use: No Drugs: None Hx Prescription Drug Abuse: No - Advance Directive Resuscitation Status: Full Code - Patient was apparently hospice until this morning when she decided to rescind this and became a full code. I confirmed this with her Family History Family History: COPD, Hypertension Parental Family History Reviewed: No - Unable to due to patient's condition Children Family History Reviewed: Unknown Sibling(s) Family History Reviewed.: Unknown Medication/Allergy Home Medications: Albuterol Sulfate [Ventolin Hfa] 2 puff IH Q4HP PRN 05/05/17 Alprazolam [Xanax] 1 mg PO Q4 05/05/17 Buspirone HCl [Buspar 5 mg Tablet] 5 mg PO TID 05/05/17 Fentanyl [Duragesic 100 Mcg/Hr Transdermal Patch] 1 patch TD Q3D 05/05/17 Fluticasone Propionate [Flonase Nasal [place] 50 Mcg/T[place] 16 gm] 1 spray NASL Q12 05/05/17 Fluticasone Propionate [Flovent HFA 220 mcg MDI] 1 puff IH BID 05/05/17 Haloperidol [Haldol 1 Mg Tablet] 1.5 mg PO Q4HP PRN 05/05/17 Lactulose [Constulose 10 gm/15 mL Oral Solution] 10 gm PO DAILY 05/05/17 Melatonin [Melatonin 5 mg Tablet] 10 mg PO QHS 05/05/17 Montelukast Sodium [Singulair 10 mg Tablet] 10 mg PO QHS 05/05/17 Nystatin 400,000 unit PO QID 05/05/17 Omeprazole 20 mg PO DAILY 05/05/17 Oxycodone HCl [Oxycodone HCl 10 MG Tablet] 10 mg PO Q6HP PRN 05/05/17 Ranitidine HCl [Zantac 150 mg Tablet] 150 mg PO BID 05/05/17 Roflumilast [Daliresp 500 mcg Tablet] 500 mcg PO DAILY 05/05/17 Sertraline HCl [Zoloft] 150 mg PO DAILY 05/05/17 Simvastatin [Zocor 40 mg Tablet] 40 mg PO DAILY 05/05/17 Allergies/Adverse Reactions: morphine Allergy (Severe, Verified 07/28/16 08:18) Hallucinations clindamycin [Clindamycin] Allergy (Verified 07/28/16 08:18) Review of Systems ROS unobtainable: Other - Due to BiPAP and patient's condition Cardiovascular: ABSENT: chest pain Respiratory: PRESENT: dyspnea Gastrointestinal: ABSENT: abdominal pain, constipation, diarrhea, hematemesis, hematochezia, nausea, vomiting Neurological: ABSENT: abnormal gait, abnormal speech, confusion, dizziness, focal weakness, syncope Physical Exam Vital Signs: Temp Pulse Resp BP Pulse Ox 98.4 F 27 H 155/89 H 92 05/05/17 15:10 05/05/17 13:02 05/05/17 10:00 05/05/17 13:02 General appearance: PRESENT: thin Head exam: PRESENT: atraumatic Eye exam: PRESENT: conjunctiva pink, EOMI, PERRLA. ABSENT: scleral icterus Neck exam: ABSENT: carotid bruit, JVD, lymphadenopathy, thyromegaly Respiratory exam: PRESENT: accessory muscle use, decreased breath sounds, retraction, rhonchi, tachypnea, wheezes. ABSENT: chest wall tenderness, unlabored Cardiovascular exam: PRESENT: +S1, +S2, tachycardia Pulses: PRESENT: normal dorsalis pedis pul GI/Abdominal exam: PRESENT: normal bowel sounds, soft. ABSENT: distended, guarding, mass, organolmegaly, rebound, tenderness Rectal exam: PRESENT: deferred Extremities exam: PRESENT: full ROM. ABSENT: calf tenderness, clubbing, pedal edema Neurological exam: PRESENT: alert, oriented to person, oriented to place, oriented to time, oriented to situation Psychiatric exam: PRESENT: appropriate affect, normal mood. ABSENT: homicidal ideation, suicidal ideation Results Laboratory Results: Labs- All tests 24 hr 05/05/17 05/05/17 05/05/17 09:15 09:15 09:15 WBC 7.2 RBC 4.02 Hgb 12.9 Hct 38.2 MCV 95 MCH 32.0 MCHC 33.7 RDW 12.1 Plt Count 353 Seg Neutrophils % 81.4 H Lymphocytes % 13.7 Monocytes % 4.2 Eosinophils % 0.5 Basophils % 0.2 Absolute Neutrophils 5.9 Absolute Lymphocytes 1.0 Absolute Monocytes 0.3 Absolute Eosinophils 0.0 Absolute Basophils 0.0 Sodium 137.4 Potassium 4.4 Chloride 91 L Carbon Dioxide 39 H Anion Gap 7 BUN 11 Creatinine 0.46 L Est GFR ( Amer) > 60 Est GFR (Non-Af Amer) > 60 Glucose 126 H Calcium 9.2 Total Bilirubin 0.2 Direct Bilirubin 0.1 Neonat Total Bilirubin Not Reportable Neonat Direct Bilirubin Not Reportable Neonat Indirect Bili Not Reportable AST 17 ALT 19 Alkaline Phosphatase 107 CK-MB (CK-2) 2.64 Troponin I < 0.012 NT-Pro-B Natriuret Pep 226 Total Protein 5.8 L Albumin 3.3 L Urine Color Urine Appearance Urine pH Ur Specific Tyler Urine Protein Urine Glucose (UA) Urine Ketones Urine Blood Urine Nitrite Urine Bilirubin Urine Urobilinogen Ur Leukocyte Esterase Urine WBC (Auto) Urine RBC (Auto) U Hyaline Cast (Auto) Squamous Epi Cells Auto Urine Mucus (Auto) Urine Ascorbic Acid 05/05/17 09:50 WBC RBC Hgb Hct MCV MCH MCHC RDW Plt Count Seg Neutrophils % Lymphocytes % Monocytes % Eosinophils % Basophils % Absolute Neutrophils Absolute Lymphocytes Absolute Monocytes Absolute Eosinophils Absolute Basophils Sodium Potassium Chloride Carbon Dioxide Anion Gap BUN Creatinine Est GFR ( Amer) Est GFR (Non-Af Amer) Glucose Calcium Total Bilirubin Direct Bilirubin Neonat Total Bilirubin Neonat Direct Bilirubin Neonat Indirect Bili AST ALT Alkaline Phosphatase CK-MB (CK-2) Troponin I NT-Pro-B Natriuret Pep Total Protein Albumin Urine Color YELLOW Urine Appearance CLEAR Urine pH 6.0 Ur Specific Tyler 1.008 Urine Protein NEGATIVE Urine Glucose (UA) NEGATIVE Urine Ketones NEGATIVE Urine Blood NEGATIVE Urine Nitrite NEGATIVE Urine Bilirubin NEGATIVE Urine Urobilinogen NEGATIVE Ur Leukocyte Esterase NEGATIVE Urine WBC (Auto) 0 Urine RBC (Auto) 2 U Hyaline Cast (Auto) 1 Squamous Epi Cells Auto <1 Urine Mucus (Auto) RARE Urine Ascorbic Acid NEGATIVE Impressions: Chest X-Ray 05/05/17 09:32 IMPRESSION: COPD. Chronic bilateral interstitial changes and pleural thickening. Status: Imported from PACS Assessment & Plan - Diagnosis (1) COPD with acute exacerbation Plan: We will treat with intravenous steroids as well as bronchodilators as well as empiric antibiotics. (2) Acute hypoxemic respiratory failure Is this a current diagnosis for this admission?: Yes Plan: Patient currently is on BiPAP to help with respiration. We will taper or wean off BiPAP as tolerated. Patient was apparently a hospice patient until this morning but she decided to change and become a full code and as stated that if needed she should be intubated (3) Tobacco use disorder Is this a current diagnosis for this admission?: Yes Plan: We will area counselor on the need to stop smoking (4) Anxiety Is this a current diagnosis for this admission?: Yes Plan: Judicious benzodiazepine use - Time Time Spent: 50 to 70 Minutes Critical Time spent with patient: Less than 15 minutes Medications reviewed and adjusted accordingly: Yes Anticipated discharge: Home Within: within 72 hours - Inpatient Certification Medical Necessity: Significant Comorbidiites Make Outpatient Treatment Too Risky , Need Close Monitoring Due to Risk of Patient Decompensation, Need for Nebulizer Therapy and Monitoring of Response
[2017-05-05] MEDS: AZITHROMYCIN 500 MG in DEXTROSE 5%-WATER 250 ML IV SCH (18:55)
[2017-05-05] MEDS: OXYCODONE HCL IR 5 MG TABLET PO PRN (18:56)
[2017-05-05] MEDS: ALBUTEROL SULFATE 0.083% NEB 2.5 MG/3 ML AMPUL NEB SCH (19:42)
[2017-05-05] MEDS: KETOROLAC TROMETHAMINE INJ/PF 30 MG/1 ML SDV IV PRN (20:25)
[2017-05-05] MEDS: MONTELUKAST SODIUM 10 MG TABLET PO SCH (22:28)
[2017-05-05] MEDS: BUSPIRONE HCL 10 MG TABLET PO SCH (22:29)
[2017-05-05] MEDS: FAMOTIDINE 20 MG TABLET PO SCH (22:29)
[2017-05-05] MEDS: MELATONIN 5 MG TABLET PO SCH (22:30)
[2017-05-05] MEDS: FLUTICASONE NASAL SPRAY 50 MCG/SPRY 120 SPRAY/16 GM NASL SCH (22:30)
[2017-05-05] MEDS: FLUTICASONE PROPIONATE HFA 110 MCG/PUFF 12 GM MDI IH SCH (22:38)
[2017-05-06] MEDS: ALPRAZOLAM 0.5 MG TABLET PO SCH ×6 (01:39→21:53)
[2017-05-06] MEDS ORDERED: INFLUENZA ADLT QUAD (36MOS+) 2017-18 VAC 0.5 ML SYR IM PRN (01:46)
[2017-05-06] MEDS: ALBUTEROL SULFATE 0.083% NEB 2.5 MG/3 ML AMPUL NEB SCH ×4 (02:05→21:59)
[2017-05-06] MEDS: HEPARIN SOD (PORCINE) 5,000 UNIT/ML 1 ML SYRINGE SUBCUT SCH ×3 (05:24→22:01)
[2017-05-06] MEDS: METHYLPREDNISOLONE INJ 40 MG/1 ML SDV IV SCH ×4 (05:24→23:23)
[2017-05-06] MEDS: BUSPIRONE HCL 10 MG TABLET PO SCH ×3 (05:25→21:53)
[2017-05-06] MEDS: OXYCODONE HCL IR 5 MG TABLET PO PRN ×3 (05:29→19:08)
[2017-05-06] MEDS: KETOROLAC TROMETHAMINE INJ/PF 30 MG/1 ML SDV IV PRN ×2 (09:53→16:57)
[2017-05-06] MEDS: FLUTICASONE NASAL SPRAY 50 MCG/SPRY 120 SPRAY/16 GM NASL SCH ×2 (09:53→21:54)
[2017-05-06] MEDS: SERTRALINE HCL 50 MG TABLET PO SCH (09:54)
[2017-05-06] MEDS: DOCUSATE SODIUM 100 MG CAPSULE PO SCH (09:55)
[2017-05-06] MEDS: FAMOTIDINE 20 MG TABLET PO SCH ×2 (09:55→21:54)
[2017-05-06] MEDS: NYSTATIN 500000 UNIT/5 ML UDCUP PO SCH ×4 (09:56→21:52)
[2017-05-06] MEDS: SIMVASTATIN 40 MG TABLET PO SCH (09:56)
[2017-05-06] MEDS ORDERED: ENOXAPARIN SODIUM INJ 40 MG/0.4 ML DISP.SYRIN SUBCUT SCH (10:00)
[2017-05-06] MEDS ORDERED: (PENDING PHARMACY ID) (Lactulose [Constulose 10 Gm/15 Ml Oral Solution] 10 GM) PO SCH (10:00)
[2017-05-06] MEDS: LACTULOSE SYRUP 20 GM/30 ML UDCUP PO SCH (10:03)
[2017-05-06] MEDS: FLUTICASONE PROPIONATE HFA 110 MCG/PUFF 12 GM MDI IH SCH ×2 (13:41→22:01)
[2017-05-06] MEDS: NORMAL SALINE 1000 ML 1,000 ML IV PRN (13:44)
[2017-05-06] MEDS: AZITHROMYCIN 500 MG in DEXTROSE 5%-WATER 250 ML IV SCH (17:29)
[2017-05-06] MEDS: MELATONIN 5 MG TABLET PO SCH (21:56)
[2017-05-06] MEDS: MONTELUKAST SODIUM 10 MG TABLET PO SCH (21:56)
[2017-05-07] MEDS: ALPRAZOLAM 0.5 MG TABLET PO SCH ×6 (01:49→21:26)
[2017-05-07] MEDS: OXYCODONE HCL IR 5 MG TABLET PO PRN ×4 (01:49→21:24)
[2017-05-07] MEDS: ALBUTEROL SULFATE 0.083% NEB 2.5 MG/3 ML AMPUL NEB SCH ×4 (02:32→20:02)
[2017-05-07] MEDS: KETOROLAC TROMETHAMINE INJ/PF 30 MG/1 ML SDV IV PRN ×3 (05:30→19:59)
[2017-05-07] MEDS: BUSPIRONE HCL 10 MG TABLET PO SCH ×3 (05:30→21:26)
[2017-05-07] MEDS: HEPARIN SOD (PORCINE) 5,000 UNIT/ML 1 ML SYRINGE SUBCUT SCH ×3 (05:30→21:27)
[2017-05-07] MEDS: METHYLPREDNISOLONE INJ 40 MG/1 ML SDV IV SCH ×2 (05:30→21:27)
[2017-05-07] MEDS: SERTRALINE HCL 50 MG TABLET PO SCH (09:08)
[2017-05-07] MEDS: SIMVASTATIN 40 MG TABLET PO SCH (09:08)
[2017-05-07] MEDS: NYSTATIN 500000 UNIT/5 ML UDCUP PO SCH ×4 (09:08→21:45)
[2017-05-07] MEDS: FAMOTIDINE 20 MG TABLET PO SCH ×2 (09:08→21:26)
[2017-05-07] MEDS: FLUTICASONE NASAL SPRAY 50 MCG/SPRY 120 SPRAY/16 GM NASL SCH ×2 (09:09→21:27)
[2017-05-07] MEDS: LACTULOSE SYRUP 20 GM/30 ML UDCUP PO SCH (09:14)
[2017-05-07] MEDS: FLUTICASONE PROPIONATE HFA 110 MCG/PUFF 12 GM MDI IH SCH ×2 (09:14→21:49)
[2017-05-07] MEDS: DOCUSATE SODIUM 100 MG CAPSULE PO SCH (09:14)
[2017-05-07] MEDS ORDERED: FENTANYL 100 MCG/HR PATCH.TD72 TD SCH (10:00)
--- NOTE | 2017-05-07 10:26 | PDOC PROGRESS REPORT ---
Subjective Progress Note for:: 05/07/17 Subjective:: Admitted with difficulty breathing and SOB Reason For Visit: ACUTE RESPIRATORY FAILURE,COPD WITH ACUTE Physical Exam Vital Signs: Temp Pulse Resp BP Pulse Ox 98.1 F 106 H 24 H 173/90 H 91 L 05/07/17 08:00 05/07/17 08:03 05/07/17 08:03 05/07/17 08:00 05/07/17 08:03 Intake & Output 05/06/17 05/07/17 05/08/17 06:59 06:59 06:59 Intake Total 1732 2215 Output Total 500 Balance 1732 1715 Weight 38.7 kg 38.6 kg General appearance: PRESENT: no acute distress, thin, other - undernourished Cachectic Head exam: PRESENT: atraumatic Eye exam: PRESENT: conjunctiva pink, EOMI, PERRLA. ABSENT: scleral icterus Neck exam: ABSENT: carotid bruit, JVD, lymphadenopathy, thyromegaly Respiratory exam: PRESENT: decreased breath sounds, unlabored. ABSENT: rales, rhonchi, tachypnea, wheezes Cardiovascular exam: PRESENT: RRR. ABSENT: diastolic murmur, rubs, systolic murmur Pulses: PRESENT: normal dorsalis pedis pul GI/Abdominal exam: PRESENT: normal bowel sounds, soft. ABSENT: distended, guarding, mass, organolmegaly, rebound, tenderness Extremities exam: PRESENT: full ROM. ABSENT: calf tenderness, clubbing, pedal edema Musculoskeletal exam: PRESENT: normal inspection Neurological exam: PRESENT: alert, awake, oriented to person, oriented to place , oriented to time, oriented to situation, CN II-XII grossly intact. ABSENT: motor sensory deficit Psychiatric exam: PRESENT: anxious Results Impressions: Chest X-Ray 05/05/17 09:32 IMPRESSION: COPD. Chronic bilateral interstitial changes and pleural thickening. Assessment & Plan - Diagnosis (1) COPD with acute exacerbation Plan: Taper intravenous steroids as well as bronchodilators and empiric antibiotics. (2) Acute hypoxemic respiratory failure Is this a current diagnosis for this admission?: Yes (3) Anxiety Is this a current diagnosis for this admission?: Yes (4) Tobacco use disorder Is this a current diagnosis for this admission?: Yes - Time Time Spent with patient: 15-24 minutes Medications reviewed and adjusted accordingly: Yes Anticipated discharge: Home Within: within 48 hours - Inpatient Certification Based on my medical assessment, after consideration of the patient's comorbidities, presenting symptoms, or acuity I expect that the services needed warrant INPATIENT care.: Yes Medical Necessity: Need for Nebulizer Therapy and Monitoring of Response
[2017-05-07 11:44] LABS: ARTERIAL BLOOD BASE EXCESS 11.8 mmol/L; ARTERIAL BLOOD H2CO3 1.82 mmol/L (1.05-1.35); ARTERIAL BLOOD HCO3 38.8 mmol/L (20-26); ARTERIAL BLOOD O2 SATURATION 93.5 % (94-98); ARTERIAL BLOOD PCO2 60.3 mmHg (35-45); ARTERIAL BLOOD PH 7.43 (7.35-7.45); ARTERIAL BLOOD TOTAL CO2 40.6 mmol/L (21-25)
[2017-05-07 11:45] LABS: ARTERIAL BLOOD FIO2 5%
[2017-05-07] MEDS: ONDANSETRON HCL INJ/PF 4 MG/2 ML SDV IV PRN ×2 (13:40→21:54)
[2017-05-07] MEDS: MELATONIN 5 MG TABLET PO SCH (21:25)
[2017-05-07] MEDS: MONTELUKAST SODIUM 10 MG TABLET PO SCH (21:26)
[2017-05-08] MEDS: KETOROLAC TROMETHAMINE INJ/PF 30 MG/1 ML SDV IV PRN ×3 (01:49→14:31)
[2017-05-08] MEDS: ALPRAZOLAM 0.5 MG TABLET PO SCH ×6 (01:49→22:28)
[2017-05-08] MEDS: ALBUTEROL SULFATE 0.083% NEB 2.5 MG/3 ML AMPUL NEB SCH ×4 (01:52→19:59)
[2017-05-08] MEDS: OXYCODONE HCL IR 5 MG TABLET PO PRN ×3 (02:32→17:56)
[2017-05-08] MEDS: ACETAMINOPHEN 325 MG TABLET PO PRN (05:02)
[2017-05-08] MEDS: ONDANSETRON HCL INJ/PF 4 MG/2 ML SDV IV PRN (05:03)
[2017-05-08 05:11] LABS: HEMATOCRIT 37.3 % (36.0-47.0); HEMOGLOBIN 12.5 g/dL (12.0-15.5); MEAN CORPUSCULAR HEMOGLOBIN 31.6 pg (27.0-33.4); MEAN CORPUSCULAR HGB CONC 33.4 g/dL (32.0-36.0); MEAN CORPUSCULAR VOLUME 95 fl (80-97); PLATELET COUNT 356 10^3/uL (150-450); RED BLOOD COUNT 3.94 10^6/uL (3.72-5.28); RED CELL DISTRIBUTION WIDTH 12.7 % (11.5-14.0)
[2017-05-08 05:32] LABS: ANION GAP 7 (5-19); BLOOD UREA NITROGEN 15 mg/dL (7-20); CARBON DIOXIDE 37 mmol/L (22-30); CHLORIDE 95 mmol/L (98-107); GLUCOSE 160 mg/dL (75-110); POTASSIUM 4.4 mmol/L (3.6-5.0); SODIUM 139.2 mmol/L (137-145)
[2017-05-08] MEDS: HEPARIN SOD (PORCINE) 5,000 UNIT/ML 1 ML SYRINGE SUBCUT SCH ×3 (05:35→22:28)
[2017-05-08] MEDS: BUSPIRONE HCL 10 MG TABLET PO SCH ×3 (05:35→22:28)
[2017-05-08] MEDS: HALOPERIDOL 1 MG TABLET PO PRN (08:16)
[2017-05-08] MEDS: SIMVASTATIN 40 MG TABLET PO SCH (10:04)
[2017-05-08] MEDS: AZITHROMYCIN 250 MG TABLET PO SCH (10:04)
[2017-05-08] MEDS: DOCUSATE SODIUM 100 MG CAPSULE PO SCH (10:13)
[2017-05-08] MEDS: SERTRALINE HCL 50 MG TABLET PO SCH (10:13)
[2017-05-08] MEDS: NYSTATIN 500000 UNIT/5 ML UDCUP PO SCH ×4 (10:13→22:28)
[2017-05-08] MEDS: FAMOTIDINE 20 MG TABLET PO SCH ×2 (10:19→22:28)
[2017-05-08] MEDS: FLUTICASONE NASAL SPRAY 50 MCG/SPRY 120 SPRAY/16 GM NASL SCH ×2 (10:20→22:28)
[2017-05-08] MEDS: FLUTICASONE PROPIONATE HFA 110 MCG/PUFF 12 GM MDI IH SCH ×2 (10:26→22:39)
[2017-05-08] MEDS: METHYLPREDNISOLONE INJ 40 MG/1 ML SDV IV SCH (10:26)
[2017-05-08] MEDS: LACTULOSE SYRUP 20 GM/30 ML UDCUP PO SCH (10:26)
[2017-05-08] MEDS ORDERED: PREDNISONE 20 MG TABLET PO ONE (11:00)
--- NOTE | 2017-05-08 14:23 | PDOC PROGRESS REPORT ---
Subjective Progress Note for:: 05/08/17 Subjective:: Admitted with difficulty breathing and SOB Reason For Visit: ACUTE RESPIRATORY FAILURE,COPD WITH ACUTE Physical Exam Vital Signs: Temp Pulse Resp BP Pulse Ox 98.3 F 85 14 150/77 H 91 L 05/08/17 07:28 05/08/17 07:51 05/08/17 07:51 05/08/17 07:28 05/08/17 07:51 Intake & Output 05/07/17 05/08/17 05/09/17 06:59 06:59 06:59 Intake Total 2215 1267 Output Total 500 1825 Balance 1715 -558 Weight 38.6 kg 34.2 kg General appearance: PRESENT: no acute distress, thin - Cachectic Head exam: PRESENT: atraumatic Eye exam: PRESENT: conjunctiva pink, EOMI, PERRLA. ABSENT: scleral icterus Neck exam: ABSENT: carotid bruit, JVD, lymphadenopathy, thyromegaly Respiratory exam: PRESENT: decreased breath sounds, retraction, rhonchi, unlabored. ABSENT: crackles, rales, tachypnea, wheezes Cardiovascular exam: PRESENT: RRR. ABSENT: diastolic murmur, rubs, systolic murmur GI/Abdominal exam: PRESENT: normal bowel sounds, soft. ABSENT: distended, guarding, mass, organolmegaly, rebound, tenderness Rectal exam: PRESENT: deferred Musculoskeletal exam: PRESENT: ambulatory - With walker Neurological exam: PRESENT: alert, oriented to person, oriented to place, oriented to time, oriented to situation Psychiatric exam: PRESENT: anxious Results Laboratory Results: 05/08/17 04:43 05/08/17 04:43 05/08/17 05/08/17 04:43 04:43 WBC 6.0 RBC 3.94 Hgb 12.5 Hct 37.3 MCV 95 MCH 31.6 MCHC 33.4 RDW 12.7 Plt Count 356 Sodium 139.2 Potassium 4.4 Chloride 95 L Carbon Dioxide 37 H Anion Gap 7 BUN 15 Creatinine 0.50 L Est GFR ( Amer) > 60 Est GFR (Non-Af Amer) > 60 Glucose 160 H Calcium 9.0 Impressions: Chest X-Ray 05/05/17 09:32 IMPRESSION: COPD. Chronic bilateral interstitial changes and pleural thickening. Assessment & Plan - Diagnosis (1) COPD with acute exacerbation Is this a current diagnosis for this admission?: Yes Plan: This has improved and appears to be at baseline. I have discontinued intravenous steroids and change to oral prednisone. I have also had a long talk with patient again and after discussion with her and her stepfather who she says is her primary caregiver she has decided to go back on hospice which was rescinded just on the day of admission. Her nurse Randee did call the hospice company and it appears they have declined to take her back. At this time we are contacting another hospice company because I think is imperative to get this set up for this patient goes home otherwise I feel she will bounce right back. Hopefully will be able to arrange another hospice for her by tomorrow and she can then be discharged. At this point I believe patient has benefited maximally from hospital stay.. (2) Acute hypoxemic respiratory failure Is this a current diagnosis for this admission?: Yes Plan: Patient appears to be at her baseline and she is on through any of liters of oxygen which is chronic O2 (3) Anxiety Is this a current diagnosis for this admission?: Yes Plan: Judicious benzodiazepine use (4) Tobacco use disorder Is this a current diagnosis for this admission?: Yes Plan: Has been counseled on the need to stop smoking (5) Pulmonary cachexia due to chronic obstructive pulmonary disease Is this a current diagnosis for this admission?: Yes Plan: Additional supplements as tolerated (6) Malnutrition Qualifiers: Malnutrition type: protein-calorie malnutrition Protein-calorie malnutrition severity: moderate Qualified Code(s): E44.0 - Moderate protein- calorie malnutrition Is this a current diagnosis for this admission?: Yes Plan: Likely secondary to her pulmonary disease - Time Time Spent with patient: 15-24 minutes Smoking Cessation Education: 3 to 10 minutes Anticipated discharge: Hospice - Still a full code and wants to talk to hospice before changing code status
[2017-05-08] MEDS: MELATONIN 5 MG TABLET PO SCH (22:28)
[2017-05-08] MEDS: MONTELUKAST SODIUM 10 MG TABLET PO SCH (22:28)
[2017-05-09] MEDS: ACETAMINOPHEN 325 MG TABLET PO PRN ×2 (00:14→04:30)
[2017-05-09] MEDS: KETOROLAC TROMETHAMINE INJ/PF 30 MG/1 ML SDV IV PRN (00:14)
[2017-05-09] MEDS: ONDANSETRON HCL INJ/PF 4 MG/2 ML SDV IV PRN (00:14)
[2017-05-09] MEDS: HALOPERIDOL 1 MG TABLET PO PRN ×3 (00:19→11:28)
[2017-05-09] MEDS: OXYCODONE HCL IR 5 MG TABLET PO PRN ×4 (00:20→15:19)
[2017-05-09] MEDS: ALBUTEROL SULFATE 0.083% NEB 2.5 MG/3 ML AMPUL NEB SCH ×3 (01:32→14:00)
[2017-05-09] MEDS: ALPRAZOLAM 0.5 MG TABLET PO SCH ×4 (04:12→15:21)
[2017-05-09] MEDS: HEPARIN SOD (PORCINE) 5,000 UNIT/ML 1 ML SYRINGE SUBCUT SCH ×2 (06:36→15:25)
[2017-05-09] MEDS: BUSPIRONE HCL 10 MG TABLET PO SCH ×2 (06:40→15:15)
[2017-05-09] MEDS: SIMVASTATIN 40 MG TABLET PO SCH (09:52)
[2017-05-09] MEDS: FAMOTIDINE 20 MG TABLET PO SCH (09:52)
[2017-05-09] MEDS: SERTRALINE HCL 50 MG TABLET PO SCH (09:54)
[2017-05-09] MEDS: AZITHROMYCIN 250 MG TABLET PO SCH (09:55)
[2017-05-09] MEDS: DOCUSATE SODIUM 100 MG CAPSULE PO SCH (09:55)
[2017-05-09] MEDS: FLUTICASONE NASAL SPRAY 50 MCG/SPRY 120 SPRAY/16 GM NASL SCH (09:56)
[2017-05-09] MEDS: NYSTATIN 500000 UNIT/5 ML UDCUP PO SCH ×2 (09:57→15:21)
[2017-05-09] MEDS: LACTULOSE SYRUP 20 GM/30 ML UDCUP PO SCH (09:57)
[2017-05-09] MEDS ORDERED: PREDNISONE 20 MG TABLET PO SCH (10:00)
[2017-05-09] MEDS: FLUTICASONE PROPIONATE HFA 110 MCG/PUFF 12 GM MDI IH SCH (10:15)
[2017-05-09 15:08] VITALS: BP 187/93
[2017-05-09] MEDS ORDERED: OXYCODONE HCL IR 5 MG TABLET PO PRN (16:00)
--- NOTE | 2017-05-09 17:04 | PDOC DISCHARGE SUMMARY ---
General - Admit/Disc Date/PCP Admission Date/Primary Care Provider: 05/05/17 12:24 LUTHER GRAHAM MD Discharge Date: 05/09/17 - Discharge Diagnosis (1) Acute hypoxemic respiratory failure Is this a current diagnosis for this admission?: Yes Summary: Related to COPD with exacerbation. Patient was admitted secondary to respiratory distress and acute hypoxemic respiratory failure she was treated for her COPD exacerbation and has now been discharged home without complication. (2) Anxiety Is this a current diagnosis for this admission?: Yes Summary: She is on chronic Xanax. No changes were made in this regard during her hospitalization. This is likely related to her end-stage COPD. (3) COPD with acute exacerbation Is this a current diagnosis for this admission?: Yes Summary: Patient discharged with several days of prednisone and azithromycin. She is discharged with instructions to continue her other COPD medications. She is on hospice for end-stage COPD. (4) Chronic pain Is this a current diagnosis for this admission?: Yes Summary: Patient's home medications were continued. She was discharged on her fentanyl patch and as needed oxycodone with no changes made. (5) Agitation Is this a current diagnosis for this admission?: Yes Summary: Patient is on Haldol at home. She was discharged to continue this medication, no changes made. (6) Depression Is this a current diagnosis for this admission?: Yes Summary: She will continue her SSRI on discharge. - Additional Information Resuscitation Status: Full Code Discharge Diet: As Tolerated Discharge Activity: Balance Activity w/Rest, Energy Conservation Prescriptions: Alprazolam [Xanax] 1 mg PO Q4 2 Days #12 tablet Azithromycin [Zithromax 250 mg Tablet] 500 mg PO DAILY 3 Days #3 tablet Fentanyl [Duragesic 100 Mcg/Hr Transdermal Patch] 1 patch TD Q3D 3 Days #1 patch.[id number] Haloperidol [Haldol 1 mg Tablet] 1.5 mg PO Q4HP PRN 2 Days #15 tablet PRN Reason: Anxiety Oxycodone HCl [Oxycodone HCl 10 MG Tablet] 10 mg PO Q6HP PRN 2 Days #8 tablet PRN Reason: FOR PAIN Prednisone [Deltasone 20 mg Tablet] 20 mg PO DAILY 5 Days #5 tablet Sertraline HCl [Zoloft] 150 mg PO DAILY 2 Days #2 tablet Temazepam [Restoril 7.5 mg Capsule] 7.5 mg PO HSP PRN 2 Days #2 capsule PRN Reason: Home Medications: Albuterol Sulfate [Ventolin Hfa] 2 puff IH Q4HP PRN 05/05/17 Buspirone HCl [Buspar 5 mg Tablet] 5 mg PO TID 05/05/17 Fluticasone Propionate [Flonase Nasal [place] 50 Mcg/Combined [place] 16 gm] 1 spray NASL Q12 05/05/17 Fluticasone Propionate [Flovent HFA 220 mcg MDI] 1 puff IH BID 05/05/17 Lactulose [Constulose 10 gm/15 mL Oral Solution] 10 gm PO DAILY 05/05/17 Melatonin [Melatonin 5 mg Tablet] 10 mg PO QHS 05/05/17 Montelukast Sodium [Singulair 10 mg Tablet] 10 mg PO QHS 05/05/17 Nystatin 400,000 unit PO QID 05/05/17 Omeprazole 20 mg PO DAILY 05/05/17 Ranitidine HCl [Zantac 150 mg Tablet] 150 mg PO BID 05/05/17 Roflumilast [Daliresp 500 mcg Tablet] 500 mcg PO DAILY 05/05/17 Simvastatin [Zocor 40 mg Tablet] 40 mg PO DAILY 05/05/17 Alprazolam [Xanax] 1 mg PO Q4 2 Days #12 tablet 05/09/17 Azithromycin [Zithromax 250 mg Tablet] 500 mg PO DAILY 3 Days #3 tablet Fentanyl [Duragesic 100 Mcg/Hr Transdermal Patch] 1 patch TD Q3D 3 Days #1 patch.[id number] 05/09/17 Haloperidol [Haldol 1 mg Tablet] 1.5 mg PO Q4HP PRN 2 Days #15 tablet 05/09/17 Oxycodone HCl [Oxycodone HCl 10 MG Tablet] 10 mg PO Q6HP PRN 2 Days #8 tablet Prednisone [Deltasone 20 mg Tablet] 20 mg PO DAILY 5 Days #5 tablet 05/09/17 Sertraline HCl [Zoloft] 150 mg PO DAILY 2 Days #2 tablet 05/09/17 Temazepam [Restoril 7.5 mg Capsule] 7.5 mg PO HSP PRN 2 Days #2 capsule History of Present Illness Patient complains of: Shortness of breath History of Present Illness: MIRIAM CASTILLO is a 56 year old female who has been on home hospice. She does not know her hospice diagnosis but I do believe that it is end-stage COPD. She was admitted to the hospital secondary to worsening dyspnea and anxiety, COPD exacerbation. She revoked hospice on admission. Hospital Course Hospital Course: During the admission she was treated with antibiotics steroids for COPD exacerbation. I discharged her with a short course of prednisone. She is back to her baseline. She is being discharged to continue all of her home medications. The hospice company that she revoked on admission has declined to readmit her and now [facility] has noted the patient to home hospice. Physical Exam Vital Signs: Temp Pulse Resp BP Pulse Ox 98.1 F 107 H 20 187/93 H 95 05/09/17 15:06 05/09/17 15:06 05/09/17 15:06 05/09/17 15:06 05/09/17 15:06 Intake & Output 05/08/17 05/09/17 05/10/17 06:59 06:59 06:59 Intake Total 1267 1350 Output Total 1825 950 Balance -558 400 Weight 34.2 kg 33 kg General appearance: PRESENT: disheveled, mild distress, thin Head exam: PRESENT: atraumatic, normocephalic, other - Temporal wasting evident Eye exam: PRESENT: conjunctiva pink, EOMI. ABSENT: scleral icterus Ear exam: PRESENT: normal external ear exam. ABSENT: drainage Mouth exam: PRESENT: moist, tongue midline Respiratory exam: PRESENT: crackles, prolonged expiratory phas, wheezes. ABSENT : rales, rhonchi Pulses: PRESENT: normal radial pulses Vascular exam: PRESENT: normal capillary refill GI/Abdominal exam: PRESENT: normal bowel sounds, soft. ABSENT: distended, guarding, tenderness Rectal exam: PRESENT: deferred Extremities exam: ABSENT: calf tenderness, tenderness Neurological exam: PRESENT: alert, awake, oriented to person, oriented to place , oriented to situation, CN II-XII grossly intact Psychiatric exam: PRESENT: anxious Skin exam: PRESENT: dry, intact, warm Results Laboratory Results: 05/08/17 04:43 05/08/17 04:43 Impressions: Chest X-Ray 05/05/17 09:32 IMPRESSION: COPD. Chronic bilateral interstitial changes and pleural thickening. Qualifiers - * PATEINT BEING DISCHARGED WITH ANY OF THE FOLLOWING DIAGNOSIS?: No Plan Discharge Plan: Plan is for patient to discharge to home under the care of [facility]. Her stepfather is by her bedside for discharge. They stated that their questions are answered to their satisfaction. Time Spent: Greater than 30 Minutes - A significant amount of time was spent collaborating with nurse on medication plan including need for extra as needed oxycodone.
== END 2017-05-09 16:00 | disposition hospice, home (50) | DRG 189 ==
LOC: ER 09:03 → EH 12:24 → 3W 21:32
PROVIDERS: ADMIT Emergency Medicine; ATTEND Emergency Medicine
PROC: 5A09557 Assistance with Respiratory Ventilation, Greater than 96 Consecutive Hours, Continuous Positive Airway Pressure (ICD-10-PCS; principal; 2017-05-05)
DX: J96.01 Acute respiratory failure with hypoxia (principal); J44.1 Chronic obstructive pulmonary disease with (acute) exacerbation; E44.0 Moderate protein-calorie malnutrition; Z68.1 Body mass index [BMI] 19.9 or less, adult; F41.9 Anxiety disorder, unspecified; E11.9 Type 2 diabetes mellitus without complications; G89.29 Other chronic pain; E78.5 Hyperlipidemia, unspecified; M19.90 Unspecified osteoarthritis, unspecified site; F31.9 Bipolar disorder, unspecified; Z99.81 Dependence on supplemental oxygen; Z79.899 Other long term (current) drug therapy; Z88.6 Allergy status to analgesic agent; Z88.1 Allergy status to other antibiotic agents; F17.210 Nicotine dependence, cigarettes, uncomplicated; I25.2 Old myocardial infarction
CPT/HCPCS: 36415; 36600; 71045; 80048; 80053; 81001; 82272; 82553; 82803; 83880; 84484; 85025; 85027; 87040; 87493; 93005; 93010; 94640; 94660; 96361; 96374; 96375; 99285; G8978-GP; G8979-GP; G8980-GP; J0456; J1644; J1885; J2060; J2405; J2920; J2930; J3490; J7030; J7060; J7512; J7620